=== PATIENT | male | born 1935 | race Caucasian/White ===

== ENCOUNTER → 2017-02-16 | Outpatient (CLI) | payer MEDICARE, OTHER ==
[2017-02-16 08:53] LABS: ABSOLUTE EOSINOPHILS # (AUTO) 0.2 10^3/uL (0.0-0.6); ABSOLUTE LYMPHOCYTES (AUTO) 1.8 10^3/uL (0.5-4.7); ABSOLUTE NEUT (AUTO) 5.6 10^3/uL (1.7-8.2); BASOPHILS % (AUTO) 0.6 % (0-2); EOSINOPHILS % (AUTO) 2.7 % (0-6); HEMATOCRIT 46.9 % (37.9-51.0); HEMOGLOBIN 16.1 g/dL (13.5-17.0); HGB HCT DIFFERENCE 1.4; LYMPHOCYTES % (AUTO) 20.7 % (13-45); MEAN CORPUSCULAR HEMOGLOBIN 30.2 pg (27.0-33.4); MEAN CORPUSCULAR HGB CONC 34.2 g/dL (32.0-36.0); MEAN CORPUSCULAR VOLUME 88 fl (80-97); MONOCYTES % (AUTO) 11.6 % (3-13); RED BLOOD COUNT 5.31 10^6/uL (4.35-5.55); RED CELL DISTRIBUTION WIDTH 13.7 % (11.5-14.0); SEGMENTED NEUTROPHILS % (AUTO) 64.4 % (42-78); WHITE BLOOD COUNT 8.7 10^3/uL (4.0-10.5)
[2017-02-16 09:46] LABS: CHOLESTEROL 188.25 mg/dL (0-200); DIRECT LDL 129 mg/dL (<100); Direct HDL 36 mg/dL (>40); TRIGLYCERIDES 193 mg/dL (<150); VLDL CHOLESTEROL 38.6 mg/dL (10-31)
[2017-02-16 10:01] LABS: THYROID STIMULATING HORMONE 3.28 uIU/mL (0.47-4.68)
[2017-02-17 08:31] LABS: ALANINE AMINOTRANSFERASE 34 U/L (21-72); ALBUMIN 4.1 g/dL (3.5-5.0); ALKALINE PHOSPHATASE 61 U/L (38-126); ANION GAP 10 (5-19); ASPARTATE AMINO TRANSFERASE 22 U/L (17-59); BILIRUBIN,DIRECT 0.3 mg/dL (0.0-0.4); BILIRUBIN,TOTAL 1.2 mg/dL (0.2-1.3); BLOOD UREA NITROGEN 13 mg/dL (7-20); CALCIUM 9.4 mg/dL (8.4-10.2); CARBON DIOXIDE 25 mmol/L (22-30); CHLORIDE 104 mmol/L (98-107); CREATININE RESULT 0.93 mg/dL (0.52-1.25); GLUCOSE 99 mg/dL (75-110); POTASSIUM 4.9 mmol/L (3.6-5.0); SODIUM 139.4 mmol/L (137-145); TOTAL PROTEIN 7.3 g/dL (6.3-8.2)
== END ==
LOC: OD 07:09
PROVIDERS: ATTEND Internal Medicine
DX: I10 Essential (primary) hypertension (principal); E03.9 Hypothyroidism, unspecified; Z12.5 Encounter for screening for malignant neoplasm of prostate; Z79.899 Other long term (current) drug therapy
CPT/HCPCS: 36415; 84439; 84443; 85025; 80053; 80061; G0103

== ENCOUNTER 2017-03-01 09:25 | Day surgery (SDC) | payer MEDICARE, OTHER ==
--- NOTE | 2017-02-24 10:26 | HISTORY AND PHYSICAL E ---
History and Physical NAME: PRAMOD GILL : 1935 AGE: 81Y ADMITTED: 03/01/2017 ROOM: CHIEF COMPLAINT: Patient for colonoscopy. HISTORY OF PRESENT ILLNESS: The patient is a 81-year-old male who presented for colon screening. SOCIAL HISTORY: . Does not smoke. Does not drink. PAST MEDICAL HISTORY: Patient does have a history of right hemicolectomy secondary to cancer in 1998, right inguinal hernia surgery. REVIEW OF SYSTEMS: CARDIAC: Heart murmur. ENDOCRINE: Hypothyroid. GASTROINTESTINAL: Colon screening. Right hemicolectomy secondary to malignancy of the colon. MUSCULOSKELETAL: Arthritis. FAMILY HISTORY: Father had heart disease. Mom of old age. PHYSICAL EXAMINATION: GENERAL: Pleasant, 81. VITAL SIGNS: Blood pressure 140/80, pulse 80, respirations 18, temperature 98. HEENT: Normal. ABDOMEN: Soft. NEUROLOGIC: Exam negative. LABORATORY STUDIES: White count 8, hemoglobin 16, crit 46. Triglycerides is 193. Patient does have VLDL of 38. PSA is normal. CONCLUSION: Colon screening. PLAN: Colonoscopy. Scheduled for colon exam on 03/01/2017. REVIEW OF RECORDS: Shows as follows: Patient was seen in 03/2009. He did have stage c2 T3 N1 M0 moderately well-differentiated adenocarcinoma of the colon. He was seen on consultation by Dr. Loja, oncology, at that time. I did a colonoscopy on him in 1999, showing no recurrence, no polyps. Colonoscopy in 2002 was negative for recurrence. Colonoscopy in 2003 was negative and in 2005 was negative. DICTATING PHYSICIAN: WILL ALLAN M.D. [id number] [id number] PHY#: [id number] ID: [id number] JOB#: [id number] ACCT: [id number] cc:SAMANTHA PERDUE M.D., MAHMOUD M.D. >
[2017-03-01] MEDS ORDERED: NALOXONE HCL INJ/PF 0.4 MG/1 ML SDV ONE (09:29)
[2017-03-01] MEDS ORDERED: GLYCOPYRROLATE INJ 0.4 MG/2 ML VIAL ONE (09:29)
[2017-03-01] MEDS ORDERED: ONDANSETRON HCL INJ/PF 4 MG/2 ML SDV ONE (09:29)
[2017-03-01] MEDS ORDERED: LIDOCAINE 2% JELLY 30 ML TUBE ONE (09:29)
[2017-03-01] MEDS ORDERED: MIDAZOLAM 2 MG/2 ML INJ ONE ×2 (09:29→09:30)
[2017-03-01] MEDS ORDERED: FLUMAZENIL INJ 0.5 MG/5 ML VIAL ONE (09:30)
[2017-03-01] MEDS ORDERED: EPINEPHRINE INJ 1 MG/10 ML DISP.SYRIN ONE (09:30)
[2017-03-01] MEDS ORDERED: GLUCAGON,HUMAN RECOMB 1 MG INJ ONE (09:30)
[2017-03-01] MEDS ORDERED: FENTANYL CITRATE INJ/PF 100 MCG/2 ML AMPUL ONE (09:30)
[2017-03-01 11:40] LABS: ABSOLUTE EOSINOPHILS # (AUTO) 0.1 10^3/uL (0.0-0.6); ABSOLUTE LYMPHOCYTES (AUTO) 1.5 10^3/uL (0.5-4.7); ABSOLUTE MONOCYTES (AUTO) 1.3 10^3/uL (0.1-1.4); ABSOLUTE NEUT (AUTO) 7.7 10^3/uL (1.7-8.2); BASOPHILS % (AUTO) 0.2 % (0-2); EOSINOPHILS % (AUTO) 0.9 % (0-6); HEMATOCRIT 43.7 % (37.9-51.0); HGB HCT DIFFERENCE 1.3; MEAN CORPUSCULAR HEMOGLOBIN 30.1 pg (27.0-33.4); MEAN CORPUSCULAR HGB CONC 34.2 g/dL (32.0-36.0); MEAN CORPUSCULAR VOLUME 88 fl (80-97); MONOCYTES % (AUTO) 12.3 % (3-13); RED BLOOD COUNT 4.97 10^6/uL (4.35-5.55); RED CELL DISTRIBUTION WIDTH 13.9 % (11.5-14.0); SEGMENTED NEUTROPHILS % (AUTO) 72.6 % (42-78); WHITE BLOOD COUNT 10.6 10^3/uL (4.0-10.5)
[2017-03-01 11:47] VITALS: BP 136/66
--- NOTE | 2017-03-01 15:24 | OPERATIVE REPORT E ---
Operative Report NAME: PRAMOD GILL : 1935 AGE: 81Y DATE OF SURGERY: 03/01/2017 ROOM: PREOPERATIVE DIAGNOSIS: History of colon cancer, resected back in year 1999. POSTOPERATIVE DIAGNOSES: 1. Sigmoid diverticulosis. 2. Sessile polyp, mid transverse colon. 3. A 2 mm polyp ascending colon. PROCEDURE: Colonoscopy to anastomosis. SURGEON: WILL ALLAN M.D. TISSUE REMOVED OR ALTERED: 1. Polyp injected, resected transverse colon. 2. Biopsy polyp ascending colon. ANESTHESIA: Versed, fentanyl combination. Versed 2, fentanyl 50. DESCRIPTION: Rectal exam normal. Sigmoid diverticulosis. Descending colon shows tiny polyp, biopsy obtained. Transverse colon shows sessile polyp inject, resect. There were a few more small polyps around the anastomoses, biopsy obtained. Scope withdrawn from anastomosis into transverse colon where sessile polyp was seen, injected, resected, and there are a few tiny polyps 2-3 mm, biopsy obtained. Sigmoid diverticulosis. Rectum normal. DISCHARGE PLAN: Hold aspirin, nonsteroidal 5 days. Baseline CBC. Awaiting biopsy result. CEA. Consider followup colonoscopy 1-2 years pending biopsy results. FINAL DIAGNOSES: 1. Colorectal polyp. 2. History of right colon resection secondary to cancer 1999. DICTATING PHYSICIAN: WILL ALLAN M.D. [id number] PHY#: [id number] ID: [id number] JOB#: [id number] ACCT: [id number] cc:WILL ALLAN M.D. >
--- NOTE | 2017-03-01 15:25 | DISCHARGE SUMMARY E ---
Discharge Summary NAME: PRAMOD GILL : 1935 AGE: 81Y ADMITTED: 03/01/2017 DISCHARGED: 03/01/2017 HOSPITAL COURSE: The patient is a 81-year-old male has a history of right colon resection secondary to cancer by Dr. Vogt year 1999. Today's colonoscopy shows a sessile polyp mid transverse colon injected, resected, tiny polyps in the transverse colon. DISCHARGE PLAN: Soft diet. Hold aspirin, nonsteroidal. CEA, CBC. Consider followup colonoscopy 1-2 years pending biopsy results. DICTATING PHYSICIAN: WILL ALLAN M.D. [id number] [id number] PHY#: [id number] ID: [id number] JOB#: [id number] ACCT: [id number] cc:SAMANTHA PERDUE M.D., MAHMOUD M.D. >
== END 2017-03-01 11:45 | disposition home or self-care (01) ==
LOC: END 09:25
PROVIDERS: ATTEND Specialist
PROC: 0DBK8ZX Excision of Ascending Colon, Via Natural or Artificial Opening Endoscopic, Diagnostic (ICD-10-PCS; principal; 2017-03-01 10:00)
PROC: 0DBL8ZX Excision of Transverse Colon, Via Natural or Artificial Opening Endoscopic, Diagnostic (ICD-10-PCS; 2017-03-01 10:00)
DX: Z12.11 Encounter for screening for malignant neoplasm of colon (principal); D12.2 Benign neoplasm of ascending colon; D12.3 Benign neoplasm of transverse colon; K57.30 Diverticulosis of large intestine without perforation or abscess without bleeding; R97.0 Elevated carcinoembryonic antigen [CEA]; E03.9 Hypothyroidism, unspecified; R01.1 Cardiac murmur, unspecified; M19.90 Unspecified osteoarthritis, unspecified site; Z85.038 Personal history of other malignant neoplasm of large intestine; Z90.49 Acquired absence of other specified parts of digestive tract
CPT/HCPCS: 45380; 45385; 45381; 36415; 82378; 85025; 88305 ×2; J2250; J3010; J1610; J2405; J0171; J2310; J3490

== ENCOUNTER 2017-03-22 09:18 | Day surgery (SDC) | payer MEDICARE, OTHER ==
--- NOTE | 2017-03-17 09:47 | HISTORY AND PHYSICAL E ---
History and Physical NAME: PRAMOD GILL : 1935 AGE: 81Y ADMITTED: 03/22/2017 ROOM: CHIEF COMPLAINT: Abdominal pain, history of polyps. PLAN: Upper endoscopy. HISTORY AND PHYSICAL: Patient is known to me from a long time ago. I saw him in the year 1999 where he did have colon cancer, stage C2T3N1, moderately differentiated. Patient did have upper scope in 1998 for reflux. He did have a small gastric ulcer, 3 mm. He did have esophagus showing patient was bleeding. He was given 3 units of blood. His esophagus was okay, no varices. His stomach showed a 3-mm gastric ulcer. Duodenum showed no ulcers. Because of exacerbation of abdominal pain, patient is admitted for upper scope. REVIEW OF SYSTEMS: The patient has history of colon cancer. Denies any history of kidney disease. PHYSICAL EXAMINATION: VITAL SIGNS: Temp is 98, pulse 80, respirations 20, blood pressure 120/80. HEENT: Normal. ABDOMEN: Soft. NEUROLOGIC: Exam negative. MEDICATIONS: The patient is on omeprazole and thyroid replacement. CONCLUSIONS: 1. Abdominal pain. 2. Gastroesophageal reflux. 3. History of colon cancer. PLAN: Upper scope, admit 03/22/2017. DICTATING PHYSICIAN: WILL ALLAN M.D. 1209M [id number] [facility]#: [id number] ID: [id number] JOB#: [id number] ACCT: [id number] cc:SAMANTHA PERDUE M.D., MAHMOUD M.D. >
[~2017-03-22 09:18] MED LIST: EPINEPHRINE INJ 1 MG/10 ML DISP.SYRIN ONE; FENTANYL CITRATE INJ/PF 100 MCG/2 ML AMPUL ONE; FLUMAZENIL INJ 0.5 MG/5 ML VIAL ONE; GLYCOPYRROLATE INJ 0.4 MG/2 ML VIAL ONE; MIDAZOLAM 2 MG/2 ML INJ ONE; NALOXONE HCL INJ/PF 0.4 MG/1 ML SDV ONE; ONDANSETRON HCL INJ/PF 4 MG/2 ML SDV ONE
[2017-03-22 11:03] VITALS: BP 120/68
[2017-03-22 11:03] LABS: ABSOLUTE EOSINOPHILS # (AUTO) 0.2 10^3/uL (0.0-0.6); ABSOLUTE LYMPHOCYTES (AUTO) 1.5 10^3/uL (0.5-4.7); ABSOLUTE NEUT (AUTO) 6.6 10^3/uL (1.7-8.2); BASOPHILS % (AUTO) 0.5 % (0-2); EOSINOPHILS % (AUTO) 1.7 % (0-6); HEMATOCRIT 44.6 % (37.9-51.0); HEMOGLOBIN 15.3 g/dL (13.5-17.0); HGB HCT DIFFERENCE 1.3; LYMPHOCYTES % (AUTO) 16.1 % (13-45); MEAN CORPUSCULAR HEMOGLOBIN 30.6 pg (27.0-33.4); MEAN CORPUSCULAR HGB CONC 34.3 g/dL (32.0-36.0); MEAN CORPUSCULAR VOLUME 89 fl (80-97); MONOCYTES % (AUTO) 11.2 % (3-13); RED CELL DISTRIBUTION WIDTH 13.3 % (11.5-14.0); SEGMENTED NEUTROPHILS % (AUTO) 70.5 % (42-78); WHITE BLOOD COUNT 9.3 10^3/uL (4.0-10.5)
[2017-03-22 11:17] LABS: IRON 61.6 ug/dL (49-181)
[2017-03-22 11:50] LABS: CARCINOEMBRYONIC ANTIGEN 1.8 ng/mL (<3.0)
[2017-03-22 11:54] LABS: FERRITIN 67.2 ng/mL (17.9-464.0)
--- NOTE | 2017-03-22 15:29 | DISCHARGE SUMMARY E ---
Discharge Summary NAME: PRAMOD GILL : 1935 AGE: 81Y ADMITTED: 03/22/2017 DISCHARGED: 03/22/2017 HISTORY: A 81-year-old male presented with dysphagia and reflux. He does have history of colon cancer resected in 1998. History of asthma, hypothyroid. Today's upper scope shows no malignancy, no stricture, mild esophagitis, mild gastritis, mild duodenitis. DISCHARGE PLAN: 1. Soft diet. 2. Lab studies. 3. Continue omeprazole. 4. Awaiting biopsy and lab studies. 5. Followup office visit in the next few days. DICTATING PHYSICIAN: WILL ALLAN M.D. [id number] PHY#: [id number] ID: [id number] JOB#: [id number] ACCT: [id number] cc:SAMANTHA PERDUE M.D., MAHMOUD M.D. >
--- NOTE | 2017-03-22 15:29 | OPERATIVE REPORT E ---
Operative Report NAME: PRAMOD GILL : 1935 AGE: 81Y DATE OF SURGERY: 03/22/2017 ROOM: PREOPERATIVE DIAGNOSES: Dysphagia and reflux. POSTOPERATIVE DIAGNOSES: 1. Esophagitis mild. 2. Gastritis mild. 3. Duodenitis mild. OPERATION: 1. Esophagoscopy. 2. Gastroscopy. 3. Duodenoscopy. SURGEON: WILL ALLAN M.D. ANESTHESIA: Versed 2 and fentanyl 100. TISSUE REMOVED OR ALTERED: Gastric biopsy for H. pylori. DESCRIPTION OF PROCEDURE: Baby scope passed under guided vision. No difficulties. Esophagoscopy junction at 42 cm. No stricture. No hernia. No malignancy. Esophagus shows mild esophagitis. No evidence of stricture, narrowing, or malignancy. Good peristalsis with mild esophagitis. Gastroscopy: No ulcers. Mild gastritis. Duodenoscopy: Duodenal bulb shows mild duodenitis. Descending duodenal normal. CONCLUSION: Upper scope showing no ulcers. No malignancy. Mild esophagitis. Mild gastritis. Mild duodenitis. Gastric biopsy obtained for H. pylori. Patient does have history of colon polyps. History of colon cancer, resected in 1998. History of hypothyroid, asthma, and arthritis. DISCHARGE PLAN: Hold aspirin and nonsteroidal for 3 days. Soft diet. Awaiting biopsy results. I will obtain baseline CBC and CEA. Lab studies. Followup office visit in the next few days. DICTATING PHYSICIAN: WILL ALLAN M.D. [id number] [id number] PHY#: [id number] ID: [id number] JOB#: [id number] ACCT: [id number] cc:SAMANTHA PERDUE M.D., MAHMOUD M.D. >
== END 2017-03-22 11:10 | disposition home or self-care (01) ==
LOC: END 09:18
PROVIDERS: ATTEND Specialist
PROC: 0DB68ZX Excision of Stomach, Via Natural or Artificial Opening Endoscopic, Diagnostic (ICD-10-PCS; principal; 2017-03-22 10:00)
DX: K21.0 Gastro-esophageal reflux disease with esophagitis (principal); R97.0 Elevated carcinoembryonic antigen [CEA]; D50.9 Iron deficiency anemia, unspecified; K29.50 Unspecified chronic gastritis without bleeding; K29.80 Duodenitis without bleeding; J45.909 Unspecified asthma, uncomplicated; E03.9 Hypothyroidism, unspecified; M19.90 Unspecified osteoarthritis, unspecified site; Z85.038 Personal history of other malignant neoplasm of large intestine; Z90.49 Acquired absence of other specified parts of digestive tract; Z79.899 Other long term (current) drug therapy
CPT/HCPCS: 43239; 36415; 82607; 82378; 82728; 83540; 85025; 88342 ×2; 88305 ×2; J2250; J3010; J0171; J2310; J2405; J3490

== ENCOUNTER → 2017-04-12 | Outpatient (CLI) | payer MEDICARE, OTHER ==
[2017-04-12 17:42] LABS: LIPASE 90.2 U/L (23-300)
== END ==
LOC: OD 16:31
PROVIDERS: ATTEND Internal Medicine
DX: D37.8 Neoplasm of uncertain behavior of other specified digestive organs (principal); R10.10 Upper abdominal pain, unspecified
CPT/HCPCS: 36415; 82150; 83690; 86301

== ENCOUNTER → 2017-04-24 | Outpatient (CLI) | payer MEDICARE, OTHER ==
--- NOTE | 2017-04-25 08:54 | RADIOLOGY REPORT (SQ) ---
EXAM DESCRIPTION: PET CT SKULL/THIGH COMPLETED DATE/TIME: 04/24/2017 6:52 pm REASON FOR STUDY: MALIGNANT NEOPLASM OF BODY OF PANCREAS C25.1 MALIGNANT NEOPLASM OF BODY OF PANCRE COMPARISON: None. RADIONUCLIDE AND DOSE: 10.5 mCi F18 FDG The route of agent administration: Intravenous FASTING BLOOD SUGAR: 96 mg/dl CONTRAST TYPE AND DOSE: No CT contrast given. TECHNIQUE: Blood glucose level was verified. Above dose of FDG was injected intravenously. 2-D seg mented attenuation correction images were obtained from the base of the skull to the midthighs. Nonc ontrast CT images were obtained for attenuation correction and fusion with emission images. CT image s were performed without oral or intravenous contrast and are not sensitive for parenchymal lesions. A series of overlapping emission PET images were obtained. Images reviewed and manipulated [facility] by the radiologist. Images stored on PACS. LIMITATIONS: None. FINDINGS: HEAD AND NECK: No areas of abnormal metabolic activity in the soft tissues of the head and neck. CHEST: No areas of abnormal metabolic activity in the chest. ABDOMEN AND PELVIS: A 4 cm transverse by 2.7 cm AP mass is present in the deep aspect pancreatic head , abutting the superior mesenteric vein. This has SUV of 7.7. There is blurring of fat planes betwe en the mass and superior mesenteric vein. No hypermetabolic regional adenopathy. No hypermetabolic liver lesions worrisome for metastatic dise ase. PROXIMAL LOWER EXTREMITIES: No areas of abnormal metabolic activity in the soft tissues of the lower extremities. BONES: No abnormal metabolic activity in the visualized skeleton. ADDITIONAL CT FINDINGS: Partial right hemicolectomy. Calcified aortic valve. Degenerative changes i n the spine OTHER: Blood pool background activity SUV 1.9. Liver background activity 2.5 SUV IMPRESSION: Hypermetabolic mass in the dorsal aspect of the pancreatic head, from pancreatic cancer No regional hypermetabolic regional lymph nodes or evidence of metastatic disease. TECHNICAL DOCUMENTATION: JOB ID: [id number]- All Rights Reserved
== END ==
LOC: RAD 14:45
PROVIDERS: ATTEND Internal Medicine
DX: C25.1 Malignant neoplasm of body of pancreas (principal)
CPT/HCPCS: 78815; A9552

== ENCOUNTER 2017-05-26 22:26 | Emergency (ER) | payer MEDICARE, OTHER ==
[2017-05-26 23:44] LABS: ABSOLUTE LYMPHOCYTES (AUTO) 0.6 10^3/uL (0.5-4.7); ABSOLUTE MONOCYTES (AUTO) 0.1 10^3/uL (0.1-1.4); ALANINE AMINOTRANSFERASE 55 U/L (21-72); ALBUMIN 3.8 g/dL (3.5-5.0); ALKALINE PHOSPHATASE 68 U/L (38-126); ANION GAP 12 (5-19); ASPARTATE AMINO TRANSFERASE 32 U/L (17-59); BASOPHILS % (AUTO) 0.1 % (0-2); BILIRUBIN,DIRECT 0.6 mg/dL (0.0-0.4); BILIRUBIN,TOTAL 2.2 mg/dL (0.2-1.3); BLOOD UREA NITROGEN 22 mg/dL (7-20); CALCIUM 8.9 mg/dL (8.4-10.2); CARBON DIOXIDE 26 mmol/L (22-30); CHLORIDE 98 mmol/L (98-107); CREATININE RESULT 0.98 mg/dL (0.52-1.25); EOSINOPHILS % (AUTO) 0.4 % (0-6); GLUCOSE 126 mg/dL (75-110); HEMATOCRIT 38.1 % (37.9-51.0); HGB HCT DIFFERENCE 0.9; LIPASE 22.7 U/L (23-300); LYMPHOCYTES % (AUTO) 5.2 % (13-45); MEAN CORPUSCULAR HEMOGLOBIN 29.6 pg (27.0-33.4); MEAN CORPUSCULAR HGB CONC 34.2 g/dL (32.0-36.0); MEAN CORPUSCULAR VOLUME 87 fl (80-97); MONOCYTES % (AUTO) 1.1 % (3-13); POTASSIUM 4.6 mmol/L (3.6-5.0); RED CELL DISTRIBUTION WIDTH 13.4 % (11.5-14.0); SEGMENTED NEUTROPHILS % (AUTO) 93.2 % (42-78); SODIUM 135.7 mmol/L (137-145); TOTAL PROTEIN 7.1 g/dL (6.3-8.2); WHITE BLOOD COUNT 11.9 10^3/uL (4.0-10.5)
[2017-05-27] MEDS ORDERED: NORMAL SALINE 1000 ML 1,000 ML IV ONE
[2017-05-27] MEDS ORDERED: ONDANSETRON HCL INJ/PF 4 MG/2 ML SDV IV ONE (00:01)
--- NOTE | 2017-05-27 00:47 | RADIOLOGY REPORT (SQ) ---
EXAM DESCRIPTION: CT ABDOMEN AND PELVIS WITH CONTRAST CLINICAL HISTORY: vomiting, pancreatic cancer COMPARISON: None Available. TECHNIQUE: CT of the abdomen and pelvis are performed during IV bolus administration of 100.3 mL of Isovue-370. Portal venous and delayed phase imaging obtained. DLP: 1942.79 mGycm FINDINGS: Abdomen: The liver has normal size and density. No intrahepatic mass or biliary dilatation. No calcified gallstones. 3.6 x 2.9 cm hypodensity in the pancreatic head likely representing a mass. No abnormality of the spleen or adrenal glands. The kidneys have normal size and contour without evidence of solid mass or hydronephrosis. Aortoiliac atherosclerosis. IVC is unremarkable. The portal vein patent. The proximal visceral and renal arteries are patent. No free intraperitoneal air. Postoperative change adjacent to the duodenum. Pelvis: Enlarged prostate. Urinary bladder is unremarkable. No free pelvic fluid or lymphadenopathy. Prior right hemicolectomy. No dilated loops of large or small bowel. Normal appendix. The visualized lung bases are clear. No destructive bone lesions identified. Degenerative change of the spine. IMPRESSION: 1. There is a 3.6 cm hypodense mass in the pancreatic head compatible with history of pancreatic cancer. 2. No acute abnormality identified in the abdomen or pelvis. 3. Enlarged prostate. This exam was performed according to our departmental dose-optimization program, which includes automated exposure control, adjustment of the mA and/or kV according to patient size and/or use of iterative reconstruction technique.
--- NOTE | 2017-05-27 01:01 | ER Document Report ---
ED General - General Chief Complaint: Nausea Stated Complaint: VOMITING Time Seen by Provider: 05/26/17 22:38 Notes: Patient is a 81-year-old male with a past medical history of pancreatic cancer, actively receiving chemotherapy, prior history of colon cancer with a partial colonic resection who presents with 12 hours of persistent vomiting. Patient states that he last received chemotherapy 2 days ago and has had nausea since that time but has never vomited with chemotherapy in the past that he was concerned. He describes the vomitus as a nonbilious emesis, Vikash the contents when he is trying to eat or drink. He notes a had associated generalized abdominal discomfort but denies any focal pain. Nothing improves or worsens his symptoms. He has not seen his hematology/oncology doctor regarding today's concerns. He has no prior history of bowel obstructions. He states that he has been passing flatus. TRAVEL OUTSIDE OF THE [place] IN LAST 30 DAYS: No - Related Data Allergies/Adverse Reactions: No Known Allergies Allergy (Verified 05/19/17 20:28) Past Medical History - General Information source: Patient, Relative - Social History Smoking Status: Never Smoker Chew tobacco use (# tins/day): No Frequency of alcohol use: None Drug Abuse: None Lives with: Spouse/Significant other Family History: Reviewed & Not Pertinent Patient has suicidal ideation: No Patient has homicidal ideation: No - Past Medical History Cardiac Medical History: Denies: Hx Coronary Artery Disease, Hx Heart Attack, Hx Hypertension Pulmonary Medical History: Reports: Hx Asthma - A CHILD Denies: Hx Bronchitis, Hx COPD, Hx Pneumonia - INF Neurological Medical History: Denies: Hx Cerebrovascular Accident, Hx Seizures Renal/ Medical History: Denies: Hx Peritoneal Dialysis GI Medical History: Reports: Hx Ulcer - IN PAST BUT HEALED. Denies: Hx Hepatitis, Hx Hiatal Hernia Musculoskeltal Medical History: Reports Hx Arthritis Infectious Medical History: Denies: Hx Hepatitis Past Surgical History: Denies: Hx Open Heart Surgery, Hx Pacemaker - Immunizations Hx Diphtheria, Pertussis, Tetanus Vaccination: Yes Hx Pneumococcal Vaccination: 03/11/16 Review of Systems - Review of Systems Notes: Constitutional: Negative for fever. HENT: Negative for sore throat. Eyes: Negative for visual changes. Cardiovascular: Negative for chest pain. Respiratory: Negative for shortness of breath. Gastrointestinal: Positive for nausea and vomiting as well as abdominal discomfort Genitourinary: Negative for dysuria. Musculoskeletal: Negative for back pain. Skin: Negative for rash. Neurological: Negative for headaches, weakness or numbness. 10 point ROS negative except as marked above and in HPI. Physical Exam - Vital signs Vitals: Temp Pulse Resp BP Pulse Ox 98.7 F 109 H 16 134/74 H 97 05/26/17 22:34 05/26/17 22:34 05/26/17 22:34 05/26/17 22:34 05/26/17 22:34 Interpretation: Tachycardic Notes: PHYSICAL EXAMINATION: GENERAL: Appears stated age. No acute distress HEAD: Atraumatic, normocephalic. EYES: Pupils equal round and reactive to light, extraocular movements intact, sclera anicteric, conjunctiva are normal. ENT: nares patent, oropharynx clear without exudates. Dry mucous membranes. NECK: Normal range of motion, supple without lymphadenopathy LUNGS: Breath sounds clear to auscultation bilaterally and equal. No wheezes rales or rhonchi. HEART: Regular rate and rhythm without murmurs ABDOMEN: Soft, nontender, normoactive bowel sounds. No guarding, no rebound. No masses appreciated. EXTREMITIES: Normal range of motion, no pitting or edema. No cyanosis. NEUROLOGICAL: No focal neurological deficits. Moves all extremities spontaneously and on command. PSYCH: Normal mood, normal affect. SKIN: Warm, Dry, normal turgor, no rashes or lesions noted. Course - Re-evaluation Re-evalutation: 05/27/17 00:56 Patient presents with vomiting, nausea, and abdominal cramping. Patient is overall nontoxic in appearance, has had resolution of his nausea vomiting after receiving IV ondansetron. He was initially tachycardic at presentation but this did resolve after receiving IV fluids. Laboratories are overall unremarkable. A CT scan of the abdomen pelvis with IV contrast is obtained for concern for possible bowel obstruction given his surgical history as well as a known history of a mass of the head of the pancreas. CT scan did not demonstrate any evidence of acute bowel obstruction or perforation which was my primary concern. Patient was able to tolerate oral intake. 05/27/17 01:56 Patient is tolerating oral intake for over 30 minutes now. He is agreeable to discharge home. At this time will discharge with return precautions and follow- up recommendations. Verbal discharge instructions given a the bedside and opportunity for questions given. Medication warnings reviewed. Patient is in agreement with this plan and has verbalized understanding of return precautions and the need for primary care follow-up in the next 24-72 hours. - Vital Signs Vital signs: Temp Pulse Resp BP Pulse Ox 98.7 F 109 H 16 134/74 H 97 05/26/17 22:34 05/26/17 22:34 05/26/17 22:34 05/26/17 22:34 05/26/17 22:34 - Laboratory Result Diagrams: 05/26/17 23:15 05/26/17 23:15 Laboratory results interpreted by me: 05/26/17 05/26/17 23:15 23:15 WBC 11.9 H Hgb 13.0 L Plt Count 122 L Seg Neutrophils % 93.2 H Lymphocytes % 5.2 L Monocytes % 1.1 L Absolute Neutrophils 11.0 H Sodium 135.7 L BUN 22 H Glucose 126 H Total Bilirubin 2.2 H Direct Bilirubin 0.6 H Lipase 22.7 L Discharge - Discharge Clinical Impression: Dehydration Vomiting Qualifiers: Vomiting type: unspecified Vomiting Intractability: non-intractable Nausea presence: with nausea Qualified Code(s): R11.2 - Nausea with vomiting, unspecified Pancreatic cancer Qualifiers: Pancreatic malignancy location: unspecified Qualified Code(s): C25.9 - Malignant neoplasm of pancreas, unspecified Condition: Good Disposition: HOME, SELF-CARE Additional Instructions: Your CT scan is normal with exception of your known pancreatic cancer. Your labs are otherwise unremarkable. You have been sent home with Zofran that you can use as needed for nausea as well as a prescription for rectal Phenergan should your nausea remained persistent and you are unable to tolerate fluids. Prescriptions: Ondansetron [Zofran Odt 4 mg Tablet] 1 - 2 tab PO Q4H PRN #15 tab.rapdis PRN Reason: For Nausea/Vomiting Promethazine HCl [Phenergan 25 mg Supp.rect] 1 supp [place] Q6H #12 supp.rect Referrals: SAMANTHA PERDUE MD [Primary Care Provider] - Follow up as needed
[2017-05-27] MEDS ORDERED: ONDANSETRON ODT 4 MG TAB (6 TAB/ER DISP) PO PRN (01:56)
[2017-05-27] MEDS ORDERED: ONDANSETRON HCL INJ/PF 4 MG/2 ML SDV ONE (02:06)
[2017-05-27 02:48] VITALS: BP 128/66
== END 2017-05-27 02:49 | disposition home or self-care (01) ==
LOC: ER 22:26
DX: E86.0 Dehydration (principal); R11.2 Nausea with vomiting, unspecified; C25.9 Malignant neoplasm of pancreas, unspecified; R10.9 Unspecified abdominal pain; Z79.899 Other long term (current) drug therapy
CPT/HCPCS: 96376; 99284; 96361; 96374; 36415; 83690; 85025; 80053; 74177; J2405; J7030; A9270

== ENCOUNTER 2017-06-09 07:37 | Outpatient (CLI) | payer MEDICARE, OTHER ==
[~2017-06-09 07:37] MED LIST changes: -EPINEPHRINE INJ 1 MG/10 ML DISP.SYRIN ONE; -FENTANYL CITRATE INJ/PF 100 MCG/2 ML AMPUL ONE; -FLUMAZENIL INJ 0.5 MG/5 ML VIAL ONE; -GLYCOPYRROLATE INJ 0.4 MG/2 ML VIAL ONE; -MIDAZOLAM 2 MG/2 ML INJ ONE; -NALOXONE HCL INJ/PF 0.4 MG/1 ML SDV ONE; +NORMAL SALINE 1000 ML 1,000 ML IV PRN; -ONDANSETRON HCL INJ/PF 4 MG/2 ML SDV ONE; +PROMETHAZINE HCL INJ 25 MG/1 ML VIAL IV PRN
[2017-06-09 09:12] VITALS: BP 138/45
== END 2017-06-09 09:14 | disposition home or self-care (01) ==
LOC: II 07:37 → 5TH 07:38 → II 09:14
PROVIDERS: ATTEND Internal Medicine
DX: Z51.11 Encounter for antineoplastic chemotherapy (principal); C25.1 Malignant neoplasm of body of pancreas; R11.0 Nausea
CPT/HCPCS: 96374; 96360; J2550

== ENCOUNTER 2017-06-10 11:56 | Outpatient (CLI) | payer MEDICARE, OTHER ==
[2017-06-10 12:54] VITALS: BP 139/74
== END 2017-06-10 15:36 | disposition home or self-care (01) ==
LOC: II 11:56 → 5TH 11:59 → II 15:36
PROVIDERS: ATTEND Internal Medicine
PROC: 3E0337Z Introduction of Electrolytic and Water Balance Substance into Peripheral Vein, Percutaneous Approach (ICD-10-PCS; principal; 2017-06-10)
DX: R11.0 Nausea (principal); C25.1 Malignant neoplasm of body of pancreas
CPT/HCPCS: 96360

== ENCOUNTER 2017-06-17 15:38 | Outpatient (CLI) | payer MEDICARE, OTHER ==
[2017-06-17] MEDS ORDERED: NORMAL SALINE 1000 ML 1,000 ML IV PRN (15:50)
[2017-06-17 16:17] VITALS: BP 155/69
== END 2017-06-17 17:04 | disposition home or self-care (01) ==
LOC: II 15:38 → 5TH 15:41 → II 17:04
PROVIDERS: ATTEND Internal Medicine
PROC: 3E0337Z Introduction of Electrolytic and Water Balance Substance into Peripheral Vein, Percutaneous Approach (ICD-10-PCS; principal; 2017-06-17)
DX: C25.9 Malignant neoplasm of pancreas, unspecified (principal)
CPT/HCPCS: 96360

== ENCOUNTER → 2017-06-24 | Outpatient (CLI) | payer MEDICARE, OTHER ==
--- NOTE | 2017-06-24 10:42 | RADIOLOGY REPORT (SQ) ---
EXAM DESCRIPTION: CT CHEST WITH; CT ABD/PELVIS WITH IV ORAL COMPLETED DATE/TIME: 06/24/2017 9:08 am REASON FOR STUDY: PANCREATIC CA C25.1 MALIGNANT NEOPLASM OF BODY OF PANCREAS CONTRAST TYPE AND DOSE: contrast/concentration: Isovue 370.00 mg/ml; Total Contrast Delivered: 100.0 ml; Total Saline Delivered: 72.0 ml RENAL FUNCTION: Creatinine 0.8 COMPARISON: PET-CT 04/24/2017. CT abdomen 05/27/2017. TECHNIQUE: CT scan of the chest performed using helical scanning technique with dynamic intravenous contrast injection. Images reviewed with lung, soft tissue and bone windows. Reconstructed coronal a nd sagittal MPR images reviewed. All images stored on PACS. All CT scanners at this facility use dose modulation, iterative reconstruction, and/or weight based d osing when appropriate to reduce radiation dose to as low as reasonably achievable (ALARA). [facility]: Dose Right [facility]: CareDose [facility]: Dose Right [facility]: Teradose 4D [facility]: Smart Primo1D RADIATION DOSE: CT Rad equipment meets quality standard of care and radiation dose reduction techniq ues were employed. CTDIvol: 9.0 - 12.5 mGy. DLP: 1694 mGy-cm.. LIMITATIONS: None. FINDINGS: AXILLAE: No adenopathy. CHEST WALL: No masses. No subcutaneous air. LUNGS: Largely subpleural interstitial changes in the lung bases with additional areas of mild scar. No suspicious opacities or acute pneumonia evident. No significant pleural fluid. PLEURA: No effusions. No calcifications. THYROID: No masses or significant asymmetry. HILAR AND MEDIASTINAL STRUCTURES: No identified masses or abnormal nodes. AORTA AND GREAT VESSELS: No aneurysm. No dissection. PULMONARY ARTERIES: No identified pulmonary emboli. Study not optimized for the pulmonary arteries. HEART: No pericardial effusion. HARDWARE AND LIFELINES: None. BONES: No significant finding. OTHER: No other significant finding. IMPRESSION: 1. No suspicious thoracic findings. No suggestion of pulmonary metastatic disease. COMPARISON: As above. RADIATION DOSE: CT Rad equipment meets quality standard of care and radiation dose reduction techniq ues were employed. CTDIvol: 9.0 - 12.5 mGy. DLP: 1694 mGy-cm.mGy. TECHNIQUE: CT scan of the abdomen and pelvis performed with intravenous and oral contrast using petey edy scanning technique with dynamic intravenous contrast injection. Images reviewed with lung, soft tissue and bone windows. Reconstructed coronal and sagittal MPR images reviewed. Delayed images for evaluation of the urinary system also acquired and evaluated. All images stored on PACS. All CT scanners at this facility use dose modulation, iterative reconstruction, and/or weight based d osing when appropriate to reduce radiation dose to as low as reasonably achievable (ALARA). [facility]: Dose Right [facility]: SureCare [facility]: Dose Right [facility]: Teradose 4D [facility]: EVS [employer] FINDINGS: LIVER: Normal size. No masses. No dilated ducts. SPLEEN: Normal size. No focal lesions. PANCREAS: Mass in the pancreatic head and neck likely measures close to 5.7 cm transverse dimension b y 3.4 cm AP. Less discretely visualized than on prior study. Poor definition of the junction of the splenic vein, superior mesenteric vein and portal vein, apparent mass effect on the structures. Paulino w in the superior mesenteric and portal veins look somewhat generally diminished. No significant mortensen creatic tail duct dilatation. No drainable fluid collections. No bulky regional adenopathy. GALLBLADDER: No stones or wall thickening. ADRENAL GLANDS: No significant masses or asymmetry. RIGHT KIDNEY AND URETER: No gross mass or obstruction. LEFT KIDNEY AND URETER: No gross mass or obstruction. AORTA AND VESSELS: Normal caliber aorta. Soft plaque with approximately 50% narrowing in the proxima l SMA. RETROPERITONEUM: No retroperitoneal adenopathy, hemorrhage or masses. LARGE AND SMALL BOWEL: Probable proximal colon resection. No wall thickening, bowel dilatation or ab normal wall thickening. APPENDIX: Normal. ABDOMINAL WALL: No hernia or masses. PERITONEAL CAVITY: No free air. No free fluid. No peritoneal implants or masses. PELVIS: No mass or free fluid. Normal bladder. Prostate enlarged. BONES: No significant or acute findings. OTHER: No other significant finding. IMPRESSION: 1. Known pancreatic mass. Maximal transverse dimension looks larger compared to prior, however this may simply be due to differences in technique. The margins of the lesion are less well defined today relative to the prior study. There is mass effect on the portal confluence with dimini shed flow in the veins described above. No discrete clot identified. No definite metastatic lesions detected. TECHNICAL DOCUMENTATION: JOB ID: [id number] Quality ID # [id number]: Final reports with documentation of one or more dose reduction techniques (e.g., Au tomated exposure control, adjustment of the mA and/or kV according to patient size, use of iterative reconstruction technique) 2010 [employer]- All Rights Reserved
== END ==
LOC: WI 08:09
PROVIDERS: ATTEND Internal Medicine
DX: C25.1 Malignant neoplasm of body of pancreas (principal)
CPT/HCPCS: 71260; 74177

== ENCOUNTER 2017-06-30 11:17 | Outpatient (CLI) | payer MEDICARE, OTHER ==
[2017-06-30] MEDS ORDERED: NORMAL SALINE 1000 ML 1,000 ML IV PRN (11:43)
[2017-06-30] MEDS ORDERED: METOCLOPRAMIDE HCL INJ/PF 10 MG/2 ML SDV IV PRN (11:44)
[2017-06-30 12:15] VITALS: BP 131/63
== END 2017-06-30 13:01 | disposition home or self-care (01) ==
LOC: II 11:17 → 5TH 11:19 → II 13:01
PROVIDERS: ATTEND Internal Medicine Hematology & Oncology
PROC: 3E0337Z Introduction of Electrolytic and Water Balance Substance into Peripheral Vein, Percutaneous Approach (ICD-10-PCS; principal; 2017-06-30)
PROC: 3E033GC Introduction of Other Therapeutic Substance into Peripheral Vein, Percutaneous Approach (ICD-10-PCS; 2017-06-30)
DX: R11.0 Nausea (principal); C25.1 Malignant neoplasm of body of pancreas; Z51.11 Encounter for antineoplastic chemotherapy
CPT/HCPCS: 96374; 96360; J2765; 96361

== ENCOUNTER 2017-07-07 11:14 | Outpatient (CLI) | payer MEDICARE, OTHER ==
[~2017-07-07 11:14] MED LIST changes: +METOCLOPRAMIDE HCL INJ/PF 10 MG/2 ML SDV IV PRN; -PROMETHAZINE HCL INJ 25 MG/1 ML VIAL IV PRN
[2017-07-07 11:53] VITALS: BP 120/62
== END 2017-07-07 12:43 | disposition home or self-care (01) ==
LOC: II 11:14 → 5TH 11:14 → II 12:43
PROVIDERS: ATTEND Internal Medicine Hematology & Oncology
PROC: 3E033GC Introduction of Other Therapeutic Substance into Peripheral Vein, Percutaneous Approach (ICD-10-PCS; principal; 2017-07-07)
PROC: 3E0337Z Introduction of Electrolytic and Water Balance Substance into Peripheral Vein, Percutaneous Approach (ICD-10-PCS; 2017-07-07)
DX: R11.0 Nausea (principal); C25.1 Malignant neoplasm of body of pancreas
CPT/HCPCS: 96375; 96360; J2765; 96361; 96374

== ENCOUNTER 2017-07-20 10:31 | Outpatient (CLI) | payer MEDICARE, OTHER ==
[2017-07-20 10:57] VITALS: BP 133/68
[2017-07-20] MEDS ORDERED: ONDANSETRON HCL INJ/PF 4 MG/2 ML SDV IV PRN (11:26)
[2017-07-20] MEDS ORDERED: NORMAL SALINE 1000 ML 1,000 ML IV ONE (11:45)
== END 2017-07-20 12:02 | disposition home or self-care (01) ==
LOC: II 10:31 → 5TH 10:38 → II 12:02
PROVIDERS: ATTEND Internal Medicine
PROC: 3E033GC Introduction of Other Therapeutic Substance into Peripheral Vein, Percutaneous Approach (ICD-10-PCS; principal; 2017-07-20)
PROC: 3E0337Z Introduction of Electrolytic and Water Balance Substance into Peripheral Vein, Percutaneous Approach (ICD-10-PCS; 2017-07-20)
DX: E86.0 Dehydration (principal); R11.0 Nausea; C25.1 Malignant neoplasm of body of pancreas
CPT/HCPCS: 96374; 96360; J2405; 96361

== ENCOUNTER 2017-07-29 09:40 | Outpatient (CLI) | payer MEDICARE, OTHER ==
[~2017-07-29 09:40] MED LIST changes: -METOCLOPRAMIDE HCL INJ/PF 10 MG/2 ML SDV IV PRN; +ONDANSETRON HCL INJ/PF 4 MG/2 ML SDV IV PRN
[2017-07-29 10:28] VITALS: BP 132/67
== END 2017-07-29 12:29 | disposition home or self-care (01) ==
LOC: II 09:40 → 5TH 09:47 → II 12:29
PROVIDERS: ATTEND Internal Medicine
PROC: 3E0337Z Introduction of Electrolytic and Water Balance Substance into Peripheral Vein, Percutaneous Approach (ICD-10-PCS; principal; 2017-07-29)
PROC: 3E033GC Introduction of Other Therapeutic Substance into Peripheral Vein, Percutaneous Approach (ICD-10-PCS; 2017-07-29)
DX: E86.0 Dehydration (principal); R11.0 Nausea; C25.1 Malignant neoplasm of body of pancreas
CPT/HCPCS: 96375; 96360; J2405; 96361; 96374

== ENCOUNTER → 2017-08-05 | Outpatient (CLI) | payer MEDICARE, OTHER ==
--- NOTE | 2017-08-05 11:19 | RADIOLOGY REPORT (SQ) ---
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 TECHNIQUE: CT scan of the chest performed using helical scanning technique with dynamic intravenous contrast injection. Images reviewed with lung, soft tissue and bone windows. Reconstructed coronal and sagittal MPR images reviewed. All images stored on PACS. All CT scanners at this facility use dose modulation, iterative reconstruction, and/or weight based d osing when appropriate to reduce radiation dose to as low as reasonably achievable (ALARA). [facility]: Dose Right [facility]: CareDose [facility]: Dose Right [facility]: Teradose 4D [facility]: Free & Clear CONTRAST TYPE AND DOSE: 100 mL Isovue 370- low osmolar. RENAL FUNCTION: Creatinine 0.8. RADIATION DOSE: . LIMITATIONS: None. FINDINGS: LUNGS AND PLEURA: Chronic subpleural interstitial scarring. Bilateral lower lobe bronchie ctasis. No pulmonary nodules or masses. No focal infiltrates. No pleural effusion or pleural thick ening. HILAR AND MEDIASTINAL STRUCTURES: No identified masses or abnormal nodes. HEART AND VASCULAR STRUCTURES: No aneurysm or dissection. No central pulmonary emboli. No pericardi al effusion. HARDWARE: None in the chest. UPPER ABDOMEN: No significant findings. Limited exam. THYROID AND OTHER SOFT TISSUES: No masses. No adenopathy. BONES: No significant finding. OTHER: No other significant finding. IMPRESSION: STABLE CHRONIC LUNG DISEASE. NO FINDINGS TO SUGGEST METASTATIC INVOLVEMENT IN THE CHEST . TECHNICAL DOCUMENTATION: JOB ID: [id number] Quality ID # [id number]: Final reports with documentation of one or more dose reduction techniques (e.g., Au tomated exposure control, adjustment of the mA and/or kV according to patient size, use of iterative reconstruction technique) 2010 [employer]- All Rights Reserved
--- NOTE | 2017-08-05 11:30 | RADIOLOGY REPORT (SQ) ---
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 TECHNIQUE: CT scan of the abdomen and pelvis performed using helical scanning technique with dynamic intravenous contrast injection. No oral contrast. Images reviewed with lung, soft tissue, and bone windows. Reconstructed coronal and sagittal MPR images reviewed. Delayed images for evaluation of the urinary system also acquired. All images stored on PACS. All CT scanners at this facility use dose modulation, iterative reconstruction, and/or weight based d osing when appropriate to reduce radiation dose to as low as reasonably achievable (ALARA). [facility]: Dose Right [facility]: CareDose [facility]: Dose Right [facility]: Teradose 4D [facility]: [employer] CONTRAST TYPE AND DOSE: contrast/concentration: Isovue 370.00 mg/ml; Total Contrast Delivered: 100.0 ml; Total Saline Delivered: 58.9 ml RENAL FUNCTION: Creatinine 0.8. RADIATION DOSE: CT Rad equipment meets quality standard of care and radiation dose reduction techniq ues were employed. CTDIvol: 9.6 - 13.5 mGy. DLP: 1792 mGy-cm.. LIMITATIONS: None. FINDINGS: LOWER CHEST: No significant findings. Chronic scarring. No nodules or infiltrates. LIVER: Normal size. No masses. No dilated ducts. SPLEEN: Normal size. No focal lesions. PANCREAS: Again seen is an ill-defined mass in the pancreatic head. Margins are indistinct. General ly unchanged in size with transverse measurement 5.3 cm and AP measurement 3.6 cm. There is a focal area of decreased attenuation in the anterior portion of the mass, measuring 1.5 x 2 cm. Mild dilati on of the pancreatic duct. As previously mentioned, the mass does surround the confluence of the sup erior mesenteric vein, splenic vein, and portal vein with compression upon these structures. No occl usion evident. GALLBLADDER: No identified stones by CT criteria. No inflammatory changes to suggest cholecystitis. ADRENAL GLANDS: No significant masses or asymmetry. RIGHT KIDNEY AND URETER: No solid masses. No significant calcifications. No hydronephrosis or hyd roureter. LEFT KIDNEY AND URETER: No solid masses. No significant calcifications. No hydronephrosis or hydr oureter. AORTA AND VESSELS: No aneurysm. No dissection. Renal arteries, SMA, celiac without stenosis. RETROPERITONEUM: No retroperitoneal adenopathy, hemorrhage or masses. BOWEL AND PERITONEAL CAVITY: No masses or inflammatory changes. No free fluid or peritoneal masses. APPENDIX: Not visualized. PELVIS: No mass. No free fluid. Normal bladder. ABDOMINAL WALL: No masses. No hernias. BONES: No significant or acute findings. OTHER: No other significant finding. IMPRESSION: 1. ILL-DEFINED MASS IN THE PANCREATIC HEAD, RELATIVELY UNCHANGED IN OVERALL SIZE. THERE IS NOW AN AR EA OF DECREASED ATTENUATION IN THE ANTERIOR PORTION. THIS COULD REPRESENT DEVELOPING TUMOR NECROSIS. OTHERWISE NO CHANGE. 2. NO OTHER SIGNIFICANT OR ACUTE FINDING IN THE ABDOMEN OR PELVIS ON CT SCAN WITH IV CONTRAST. NO EV IDENCE OF ADENOPATHY OR METASTATIC INVOLVEMENT. TECHNICAL DOCUMENTATION: JOB ID: [id number] Quality ID # 436: Final reports with documentation of one or more dose reduction techniques (e.g., Au tomated exposure control, adjustment of the mA and/or kV according to patient size, use of iterative reconstruction technique) 2010 [employer]- All Rights Reserved
== END ==
LOC: RAD 08:39
PROVIDERS: ATTEND Internal Medicine
DX: C25.1 Malignant neoplasm of body of pancreas (principal); J47.9 Bronchiectasis, uncomplicated
CPT/HCPCS: 71260; 74177; 82565

== ENCOUNTER 2017-08-12 09:47 | Outpatient (CLI) | payer MEDICARE, OTHER ==
[2017-08-12 10:12] VITALS: BP 126/78
== END 2017-08-12 11:19 | disposition home or self-care (01) ==
LOC: II 09:47 → 5TH 09:48 → II 11:19
PROVIDERS: ATTEND Internal Medicine
PROC: 3E0337Z Introduction of Electrolytic and Water Balance Substance into Peripheral Vein, Percutaneous Approach (ICD-10-PCS; principal; 2017-08-12)
PROC: 3E033GC Introduction of Other Therapeutic Substance into Peripheral Vein, Percutaneous Approach (ICD-10-PCS; 2017-08-12)
DX: E86.0 Dehydration (principal); R11.0 Nausea; C25.1 Malignant neoplasm of body of pancreas
CPT/HCPCS: 96367; 96360; J2405; 96361; 96374

== ENCOUNTER 2017-08-18 13:40 | Outpatient (CLI) | payer MEDICARE, OTHER ==
[2017-08-18 14:13] VITALS: BP 129/62
== END 2017-08-18 15:52 | disposition home or self-care (01) ==
LOC: II 13:40 → 5TH 13:50 → II 15:52
PROVIDERS: ATTEND Internal Medicine
PROC: 3E033GC Introduction of Other Therapeutic Substance into Peripheral Vein, Percutaneous Approach (ICD-10-PCS; principal; 2017-08-18)
PROC: 3E0337Z Introduction of Electrolytic and Water Balance Substance into Peripheral Vein, Percutaneous Approach (ICD-10-PCS; 2017-08-18)
DX: E86.0 Dehydration (principal); R11.0 Nausea; C25.1 Malignant neoplasm of body of pancreas
CPT/HCPCS: 96374; 96360; J2405; 96361

== ENCOUNTER 2017-09-01 12:38 | Outpatient (CLI) | payer MEDICARE, OTHER ==
[2017-09-01 13:40] VITALS: BP 149/67
== END 2017-09-01 14:48 | disposition home or self-care (01) ==
LOC: II 12:38 → 5TH 12:52 → II 14:48
PROVIDERS: ATTEND Internal Medicine
PROC: 3E0337Z Introduction of Electrolytic and Water Balance Substance into Peripheral Vein, Percutaneous Approach (ICD-10-PCS; principal; 2017-09-01)
PROC: 3E033GC Introduction of Other Therapeutic Substance into Peripheral Vein, Percutaneous Approach (ICD-10-PCS; 2017-09-01)
DX: E86.0 Dehydration (principal); C25.1 Malignant neoplasm of body of pancreas; R11.0 Nausea
CPT/HCPCS: 96374; 96360; J2405; 96361

== ENCOUNTER 2017-09-08 10:43 | Outpatient (CLI) | payer MEDICARE, OTHER ==
[2017-09-08 11:03] VITALS: BP 148/68
== END 2017-09-08 13:34 | disposition home or self-care (01) ==
LOC: II 10:43 → 5TH 10:44 → II 13:34
PROVIDERS: ATTEND Internal Medicine
PROC: 3E0337Z Introduction of Electrolytic and Water Balance Substance into Peripheral Vein, Percutaneous Approach (ICD-10-PCS; principal; 2017-09-08)
PROC: 3E033GC Introduction of Other Therapeutic Substance into Peripheral Vein, Percutaneous Approach (ICD-10-PCS; 2017-09-08)
DX: E86.0 Dehydration (principal); R11.0 Nausea; C25.1 Malignant neoplasm of body of pancreas
CPT/HCPCS: 96374; 96360; J2405; 96361

== ENCOUNTER 2017-09-19 09:16 | Day surgery (SDC) | payer MEDICARE, OTHER ==
[~2017-09-19 09:16] MED LIST changes: +CEFAZOLIN 1 GM/D5W RTU 1 GM/50 ML RTUPB IV PRN; +DEXTROSE 5%-1/2 NORMAL SALINE 1,000 ML IV PRN; +DIAZEPAM 5 MG TABLET PO PRN; -NORMAL SALINE 1000 ML 1,000 ML IV PRN; -ONDANSETRON HCL INJ/PF 4 MG/2 ML SDV IV PRN; +OXYCODONE-ACETAMINOPHEN 5-325 MG TABLET PO PRN
[2017-09-19 10:01] LABS: HEMATOCRIT 34.1 % (37.9-51.0); HEMOGLOBIN 11.3 g/dL (13.5-17.0); MEAN CORPUSCULAR HEMOGLOBIN 30.6 pg (27.0-33.4); MEAN CORPUSCULAR HGB CONC 33.1 g/dL (32.0-36.0); MEAN CORPUSCULAR VOLUME 92 fl (80-97); PLATELET COUNT 295 10^3/uL (150-450); RED BLOOD COUNT 3.69 10^6/uL (4.35-5.55); RED CELL DISTRIBUTION WIDTH 18.1 % (11.5-14.0); WHITE BLOOD COUNT 7.5 10^3/uL (4.0-10.5)
[2017-09-19 10:19] LABS: ANION GAP 6 (5-19); BLOOD UREA NITROGEN 9 mg/dL (7-20); CALCIUM 9.2 mg/dL (8.4-10.2); CARBON DIOXIDE 29 mmol/L (22-30); CHLORIDE 104 mmol/L (98-107); GLUCOSE 89 mg/dL (75-110); POTASSIUM 4.2 mmol/L (3.6-5.0); SODIUM 139.2 mmol/L (137-145)
--- NOTE | 2017-09-19 10:35 | RADIOLOGY REPORT (SQ) ---
EXAM DESCRIPTION: CHEST SINGLE VIEW COMPLETED DATE/TIME: 09/19/2017 9:42 am REASON FOR STUDY: PREOP COMPARISON: Chest CT scan dated July 2017 EXAM PARAMETERS: NUMBER OF VIEWS: One view. TECHNIQUE: Single frontal radiographic view of the chest acquired. RADIATION DOSE: NA LIMITATIONS: None. FINDINGS: LUNGS AND PLEURA: No opacities, masses or pneumothorax. No pleural effusion. Chronic appe aring changes are identified MEDIASTINUM AND HILAR STRUCTURES: No masses. Contour normal. HEART AND VASCULAR STRUCTURES: Cardiac silhouette is enlarged. BONES: No acute findings. HARDWARE: None in the chest. OTHER: No other significant finding. IMPRESSION: No acute changes. Other findings as noted above TECHNICAL DOCUMENTATION: JOB ID: [id number] [email or web address]- All Rights Reserved Reading location - IP/workstation name: [email or web address]
[2017-09-19] MEDS ORDERED: LIDOCAINE 0.5% INJ-PF (5 MG/ML) 50 ML SDV ONE (12:03)
[2017-09-19] MEDS ORDERED: MIDAZOLAM 2 MG/2 ML INJ ONE (12:03)
[2017-09-19] MEDS ORDERED: FENTANYL CITRATE INJ/PF 100 MCG/2 ML AMPUL ONE (12:04)
[2017-09-19] MEDS ORDERED: BACITRACIN INJ 50,000 UNIT VIAL ONE (12:04)
--- NOTE | 2017-09-19 14:05 | RADIOLOGY REPORT (SQ) ---
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 FLUOROSCOPY TIME: Reported has 0.0 minutes. 12 images saved to PACS. TECHNIQUE: Intra-operative images acquired during surgical procedure to evaluate progress. NUMBER OF IMAGES: 12 images. LIMITATIONS: None. FINDINGS: Images of the chest acquired during catheter placement. IMPRESSION: IMAGE(S) OBTAINED DURING PROCEDURE. COMMENT: Quality ID 145: Final reports for procedures using fluoroscopy that document radiation exp osure indices, or exposure time and number of fluorographic images (if radiation exposure indices are not available) Please consult full operative report of the attending physician for description of the procedure. TECHNICAL DOCUMENTATION: JOB ID: [id number] [employer]- All Rights Reserved Reading location - IP/workstation name: [email or web address]
--- NOTE | 2017-09-19 14:05 | RADIOLOGY REPORT (SQ) ---
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 FLUOROSCOPY TIME: Reported has 0.0 minutes. 12 images saved to PACS. TECHNIQUE: Intra-operative images acquired during surgical procedure to evaluate progress. NUMBER OF IMAGES: 12 images. LIMITATIONS: None. FINDINGS: Images of the chest acquired during catheter placement. IMPRESSION: IMAGE(S) OBTAINED DURING PROCEDURE. COMMENT: Quality ID 145: Final reports for procedures using fluoroscopy that document radiation exp osure indices, or exposure time and number of fluorographic images (if radiation exposure indices are not available) Please consult full operative report of the attending physician for description of the procedure. TECHNICAL DOCUMENTATION: JOB ID: [id number] 2006 [employer]- All Rights Reserved Reading location - IP/workstation name: [email or web address]
--- NOTE | 2017-09-19 14:05 | RADIOLOGY REPORT (SQ) ---
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 FLUOROSCOPY TIME: Reported has 0.0 minutes. 12 images saved to PACS. TECHNIQUE: Intra-operative images acquired during surgical procedure to evaluate progress. NUMBER OF IMAGES: 12 images. LIMITATIONS: None. FINDINGS: Images of the chest acquired during catheter placement. IMPRESSION: IMAGE(S) OBTAINED DURING PROCEDURE. COMMENT: Quality ID 145: Final reports for procedures using fluoroscopy that document radiation exp osure indices, or exposure time and number of fluorographic images (if radiation exposure indices are not available) Please consult full operative report of the attending physician for description of the procedure. TECHNICAL DOCUMENTATION: JOB ID: [id number] [employer]- All Rights Reserved Reading location - IP/workstation name: [email or web address]
[2017-09-19 15:09] VITALS: BP 154/85
--- NOTE | 2017-09-19 15:14 | Discharge Summary ---
Discharge Summary (SDC) - Discharge Final Diagnosis: Pancreatic cancer. Date of Surgery: 09/19/17 Discharge Date: 09/19/17 Condition: Good Forms: ASU Anesthesia D/C Instruction, Discharge POC-Surgical Service Treatment or Instructions: Discharge home [after recovery per ASU criteria]. Diet ,as tolerated, when fully awake advance as tolerated. Activities within moderation encouraged. Follow up in my office by appointment in about [1 week]. Call for appointment. Leave wounds [covered], [keep clean and dry, until office visit in 1 week]. Meds per med rec. Hold of on school/work [until evaluation in office]. May shower [in 48 hrs], [try to keep operated area as dry as possible]. Referrals: JOSE INIGUEZ MD [ACTIVE STAFF] - 09/29/17 8:45 am Discharge Diet: As Tolerated Respiratory Treatments at Home: Deep Breathing/Coughing Discharge Activity: Activity As Tolerated, No Driving, No Lifting Over 10 Pounds , No Lifting/Push/Pulling, Slowly Increase Activity, No tub bath Home Care Assistance: None Needed Report the Following to Your Physician Immediately: Shortness of Breath, Nausea , Vomiting, Increase in Pain, Fever over 101 Degrees, Unusual Bleeding, Redness , Swelling, Warmth, Increased Soreness, Drainage-Yellow, Drainage-Chew, Drainage -Green, Drainage-Foul Smelling, Numbness, Tingling Sensation, Wheezing, IV Site Infection Signs
--- NOTE | 2017-09-19 15:16 | Operative Report ---
Operative Report DATE OF SURGERY: 09/19/17 PREOPERATIVE DIAGNOSIS: Pancreatic cancer. POSTOPERATIVE DIAGNOSIS: Pancreatic cancer. OPERATION: 1. Ultrasound evaluation of the right internal jugular vein. 2. Insertion of Port-A-Cath via real-time ultrasound guidance in the right internal jugular vein. 3. Angiogram and interpretation. SURGEON: JOSE WOOD COLORER MACHINE: None. ANESTHESIA: Moderate Sedation TISSUE REMOVED OR ALTERED: Not applicable. COMPLICATIONS: None. ESTIMATED BLOOD LOSS: 10 mL. INTRAOPERATIVE FINDINGS: Of a satisfactory position and function of current Port -A-Cath. Easy egress of blood and ingress of heparinized solution. Smooth flow of contrast through the catheter, right atrium and pulmonary outflow tract. PROCEDURE: After obtaining informed consent, the patient was taken to the Filter Changing Technician and positioned supine. The [right] neck and chest were prepared with chlorhexidine and draped out with sterile linen. After the " universal timeout", in which it was verified that the patient continued to receive antibiotic, the procedure commenced. A steriley sheathed ultrasound probe was used to evaluate the [ right] internal jugular vein. Local anesthesia was infiltrated adjacent to the probe. Access into the [right] internal jugular vein was obtained using a micropuncture needle, followed by micropuncture wire and then a micropuncture catheter. This was followed by introduction of a 0.035 guidewire the tip of which was placed down into the inferior vena cava . The port sites was marked , locally anesthetized and incision made. Dissection now proceeded to the deep subcutaneous subcutaneous tissues so that a pocket for the port was made. Meticulous hemostasis was secured and the catheter was tunneled between the 2 incisions. Proximally, the catheter was now positioned using a peel-away sheath. Distally the catheter was tailored to an appropriate length and then mated to the port using the contained fixating device. The port was now placed in the pocket and the catheter optimally positioned. The port was accessed with a Chatterjee needle and an angiogram done under digital subtraction. The findings as dictated. With adequate and satisfactory positioning, both lumens of the chamber were irrigated with heparinized solution. The wounds were now closed using interrupted 3-0 PDS to the subcutaneous tissues and a continuous subcuticular suture of 4-0 Monocryl to the skin. These are reinforced with Steri-Strips over benzoin and then dressings applied. Copies of the dictated operative report for Dr. Jose Vasquez MD.
== END 2017-09-19 15:00 | disposition home or self-care (01) ==
LOC: CCL 09:16
PROVIDERS: ATTEND Surgery
PROC: 05HM33Z Insertion of Infusion Device into Right Internal Jugular Vein, Percutaneous Approach (ICD-10-PCS; principal; 2017-09-19)
DX: C25.1 Malignant neoplasm of body of pancreas (principal); K21.9 Gastro-esophageal reflux disease without esophagitis; E05.90 Thyrotoxicosis, unspecified without thyrotoxic crisis or storm; Z85.038 Personal history of other malignant neoplasm of large intestine
CPT/HCPCS: 36415; 85027; 80048; 36561; 76937; 77001; 71045; C1752; C1788; Q9967; J2250; J3490 ×2; J0690; A9270 ×2; J3010; J1644

== ENCOUNTER 2017-09-22 08:35 | Outpatient (CLI) | payer MEDICARE, OTHER ==
[~2017-09-22 08:35] MED LIST changes: -CEFAZOLIN 1 GM/D5W RTU 1 GM/50 ML RTUPB IV PRN; -DEXTROSE 5%-1/2 NORMAL SALINE 1,000 ML IV PRN; -DIAZEPAM 5 MG TABLET PO PRN; +NORMAL SALINE 1000 ML 1,000 ML IV PRN; +ONDANSETRON HCL INJ/PF 4 MG/2 ML SDV IV PRN; -OXYCODONE-ACETAMINOPHEN 5-325 MG TABLET PO PRN
[2017-09-22] MEDS ORDERED: NORMAL SALINE 10 ML SDV (AFTER EACH USE) IV PRN (09:07)
[2017-09-22 09:08] VITALS: BP 145/68
[2017-09-22] MEDS ORDERED: NORMAL SALINE 10 ML SDV (SCHEDULED) IV SCH (10:00)
== END 2017-09-22 10:08 | disposition home or self-care (01) ==
LOC: II 08:35 → 5TH 08:38 → II 10:08
PROVIDERS: ATTEND Internal Medicine
PROC: 3E043GC Introduction of Other Therapeutic Substance into Central Vein, Percutaneous Approach (ICD-10-PCS; principal; 2017-09-22)
PROC: 3E0437Z Introduction of Electrolytic and Water Balance Substance into Central Vein, Percutaneous Approach (ICD-10-PCS; 2017-09-22)
DX: E86.0 Dehydration (principal); C25.1 Malignant neoplasm of body of pancreas; R11.0 Nausea
CPT/HCPCS: 96374; 96375; 96360; J2405; 96361

== ENCOUNTER 2017-09-29 09:17 | Outpatient (CLI) | payer MEDICARE, OTHER ==
[2017-09-29 09:39] VITALS: BP 112/41
== END 2017-09-29 10:30 | disposition home or self-care (01) ==
LOC: II 09:17 → 5TH 09:20 → II 10:30
PROVIDERS: ATTEND Internal Medicine
PROC: 3E0437Z Introduction of Electrolytic and Water Balance Substance into Central Vein, Percutaneous Approach (ICD-10-PCS; principal; 2017-09-29)
PROC: 3E043GC Introduction of Other Therapeutic Substance into Central Vein, Percutaneous Approach (ICD-10-PCS; 2017-09-29)
DX: E86.0 Dehydration (principal); R11.0 Nausea; C25.1 Malignant neoplasm of body of pancreas
CPT/HCPCS: 96374; 96360; J2405; 96361

== ENCOUNTER → 2017-10-06 | Outpatient (CLI) | payer MEDICARE, OTHER ==
--- NOTE | 2017-10-06 11:07 | RADIOLOGY REPORT (SQ) ---
EXAM DESCRIPTION: CT CHEST WITH COMPLETED DATE/TIME: 10/06/2017 9:33 am REASON FOR STUDY: PANCREATIC CA C25.1 MALIGNANT NEOPLASM OF BODY OF PANCREAS COMPARISON: 08/05/2017 TECHNIQUE: CT scan of the chest performed using helical scanning technique with dynamic intravenous contrast injection. Images reviewed with lung, soft tissue and bone windows. Reconstructed coronal and sagittal MPR images reviewed. All images stored on PACS. All CT scanners at this facility use dose modulation, iterative reconstruction, and/or weight based d osing when appropriate to reduce radiation dose to as low as reasonably achievable (ALARA). [facility]: Dose Right [facility]: CareDose [facility]: Dose Right [facility]: Teradose 4D [facility]: [employer] CONTRAST TYPE AND DOSE: See separate report of the same date. RENAL FUNCTION: See separate report of the same date. RADIATION DOSE: . LIMITATIONS: None. FINDINGS: LUNGS AND PLEURA: More conspicuous interlobular septal thickening in both lungs with relat evi sparing of the left upper lobe. No definitive nodules. No significant pleural fluid. HILAR AND MEDIASTINAL STRUCTURES: No identified masses or abnormal nodes. HEART AND VASCULAR STRUCTURES: No aneurysm or dissection. No central pulmonary emboli. No pericardi al effusion. HARDWARE: None in the chest. UPPER ABDOMEN: See separate report of the CT of the abdomen. THYROID AND OTHER SOFT TISSUES: No masses. No adenopathy. BONES: No significant finding. OTHER: Right-sided port tip in the SVC. 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 TECHNICAL DOCUMENTATION: JOB ID: [id number] Quality ID # 436: Final reports with documentation of one or more dose reduction techniques (e.g., Au tomated exposure control, adjustment of the mA and/or kV according to patient size, use of iterative reconstruction technique) 2010 [employer]- All Rights Reserved Reading location - IP/workstation name: [email or web address]
--- NOTE | 2017-10-06 11:40 | RADIOLOGY REPORT (SQ) ---
EXAM DESCRIPTION: CT ABD/PELVIS WITH IV ONLY COMPLETED DATE/TIME: 10/06/2017 9:33 am REASON FOR STUDY: PANCREATIC CA C25.1 MALIGNANT NEOPLASM OF BODY OF PANCREAS COMPARISON: With 08/05/2017. TECHNIQUE: CT scan of the abdomen and pelvis performed using helical scanning technique with dynamic intravenous contrast injection. No oral contrast. Images reviewed with lung, soft tissue, and bone windows. Reconstructed coronal and sagittal MPR images reviewed. Delayed images for evaluation of the urinary system also acquired. All images stored on PACS. All CT scanners at this facility use dose modulation, iterative reconstruction, and/or weight based d osing when appropriate to reduce radiation dose to as low as reasonably achievable (ALARA). [facility]: Dose Right [facility]: CareDose [facility]: Dose Right [facility]: Teradose 4D [facility]: [employer] CONTRAST TYPE AND DOSE: contrast/concentration: Isovue 370.00 mg/ml; Total Contrast Delivered: 100.0 ml; Total Saline Delivered: 72.0 ml RENAL FUNCTION: BUN 9 creatinine 0.8 RADIATION DOSE: CT Rad equipment meets quality standard of care and radiation dose reduction techniq ues were employed. CTDIvol: 9.4 - 11.7 mGy. DLP: 1588 mGy-cm.. LIMITATIONS: None. FINDINGS: LOWER CHEST: See separate report of the CT of the chest. LIVER: Normal size. No masses. No dilated ducts. SPLEEN: Normal size. No focal lesions. PANCREAS: Increase in size of pancreatic mass with indistinct margins, approximately 4.9 x 2.2 cm. T here is encasement of the superior mesenteric vein and common hepatic artery. GALLBLADDER: No identified stones by CT criteria. No inflammatory changes to suggest cholecystitis. ADRENAL GLANDS: No significant masses or asymmetry. RIGHT KIDNEY AND URETER: No solid masses. No significant calcifications. No hydronephrosis or hyd roureter. LEFT KIDNEY AND URETER: No solid masses. No significant calcifications. No hydronephrosis or hydr oureter. AORTA AND VESSELS: No aneurysm. RETROPERITONEUM: No retroperitoneal adenopathy, hemorrhage or masses. BOWEL AND PERITONEAL CAVITY: Anastomosis transverse colon. No inflammatory changes. No ascites, maren nopathy or free air. APPENDIX: Normal. PELVIS: No mass. No free fluid. Normal bladder. ABDOMINAL WALL: No masses. No hernias. BONES: No significant or acute findings. OTHER: No other significant finding. IMPRESSION: Increase in size of pancreatic head mass. TECHNICAL DOCUMENTATION: JOB ID: [id number] Quality ID # 436: Final reports with documentation of one or more dose reduction techniques (e.g., Au tomated exposure control, adjustment of the mA and/or kV according to patient size, use of iterative reconstruction technique) 2010 [employer]- All Rights Reserved Reading location - IP/workstation name: [email or web address]
== END ==
LOC: RAD 08:35
PROVIDERS: ATTEND Internal Medicine
DX: C25.1 Malignant neoplasm of body of pancreas (principal)
CPT/HCPCS: 71260; 74177

== ENCOUNTER 2017-10-28 19:34 | Emergency (ER) | payer MEDICARE, OTHER ==
[2017-10-28] MEDS ORDERED: NORMAL SALINE 1000 ML 1,000 ML IV PRN (20:48)
[2017-10-28] MEDS ORDERED: ONDANSETRON HCL INJ/PF 4 MG/2 ML SDV IV ONE (21:01)
--- NOTE | 2017-10-28 21:03 | ER Document Report ---
ED General - General Chief Complaint: Other Stated Complaint: ABDOMINAL PAIN Time Seen by Provider: 10/28/17 20:47 TRAVEL OUTSIDE OF THE [place] IN LAST 30 DAYS: No - HPI Notes: Patient is a 81-year-old male who presents to the emergency department requesting IV fluids for hydration. Patient states that he has pancreatic cancer and is undergoing chemotherapy and usually presents as an outpatient to get fluids when he starts feeling dehydrated. Patient states that he is still drinking ensure, but has had a limited amount of the last couple days. Patient states that they added another chemo medication to his regimen and started feeling dry at this afternoon. Patient states that he usually performs this as an outpatient, but they are currently not available to him so he came to the emergency department. Patient states that he has chronic abdominal pain that has remained unchanged due to the pancreatic cancer. He does have PRN zofran for his nausea. Patient states that he did have pneumonia 2 weeks ago, but those symptoms have since resolved. Patient states that he has otherwise been well and was able to make it to the grocery store today with his . Patient states that he is urinating normally and having normal bowel movements. Pt states that he does not want any labs or imaging performed as he has not had any acute changes to his ongoing issues and just needs some fluids. He has no other concerns or complaints at this time. Denies any drug allergies. Denies any headache, fever, URI, sore throat, chest pain, palpitations, syncope, cough , shortness of breath, wheeze, dyspnea, diarrhea, urinary retention, dysuria, hematuria, loss of control of bowel or bladder, numbness/tingling, saddle anesthesia, muscle paralysis/weakness, or rash. - Related Data Allergies/Adverse Reactions: No Known Allergies Allergy (Verified 09/19/17 09:57) Past Medical History - Social History Smoking Status: Former Smoker Chew tobacco use (# tins/day): No Frequency of alcohol use: None Drug Abuse: None Family History: Reviewed & Not Pertinent Patient has suicidal ideation: No Patient has homicidal ideation: No - Past Medical History Cardiac Medical History: Denies: Hx Coronary Artery Disease, Hx Heart Attack, Hx Hypertension Pulmonary Medical History: Reports: Hx Asthma - AT A YOUNGER AGE, NO ISSUES LATELY Denies: Hx Bronchitis, Hx COPD, Hx Pneumonia Neurological Medical History: Denies: Hx Cerebrovascular Accident, Hx Seizures Renal/ Medical History: Denies: Hx Peritoneal Dialysis GI Medical History: Reports: Hx Ulcer - IN PAST BUT HEALED. Denies: Hx Hepatitis, Hx Hiatal Hernia Musculoskeltal Medical History: Reports Hx Arthritis - OSTEO Infectious Medical History: Denies: Hx Hepatitis Past Surgical History: Denies: Hx Open Heart Surgery, Hx Pacemaker - Immunizations Hx Diphtheria, Pertussis, Tetanus Vaccination: Yes Hx Pneumococcal Vaccination: 03/11/16 Review of Systems - Review of Systems -: Yes All other systems reviewed and negative Physical Exam - Vital signs Vitals: Temp Pulse Resp BP Pulse Ox 98.1 F 85 17 169/91 H 94 10/28/17 19:59 10/28/17 19:59 10/28/17 19:59 10/28/17 19:59 10/28/17 19:59 - Notes Notes: PHYSICAL EXAMINATION: GENERAL: Well-appearing, well-nourished and in no acute distress. A&ox4. Answers questions appropriately. HEAD: Atraumatic, normocephalic. EYES: Pupils equal round and reactive to light, extraocular movements intact, sclera anicteric, conjunctiva are normal. ENT: Nares patent and without discharge. oropharynx clear without exudates. No tonsilar hypertrophy or erythema. Moist mucous membranes. NECK: Normal range of motion, supple without lymphadenopathy LUNGS: Breath sounds clear to auscultation bilaterally and equal. No wheezes rales or rhonchi. HEART: Regular rate and rhythm without murmurs, rubs, gallops. ABDOMEN: Soft, nondistended abdomen. No guarding, no rebound. No masses appreciated. Normal bowel sounds present. No CVA tenderness bilaterally. + mild epigastric tenderness (chronic per patient). Musculoskeletal: FROM to passive/active. Strength 5+/5. Extremities: No cyanosis, clubbing, or edema b/l. Peripheral pulses 2+. Capillary refill less than 3 seconds. NEUROLOGICAL: Cranial nerves grossly intact. Normal speech, normal gait. Normal sensory, motor exams PSYCH: Normal mood, normal affect. SKIN: Warm, Dry, normal turgor, no rashes or lesions noted. Course - Re-evaluation Re-evalutation: 10/28/17 21:[address] Islas to give an update about a patient of theirs who came to the ED who is in agreement with hydration and follow-up with them. 10/28/17 22:49 Patient is an afebrile, well-hydrated, 81-year-old male who presents to the ED with mild dehydration for rehydration purposes. Vitals are acceptable. PE is otherwise unremarkable. Patient was given 2 L normal saline. Patient states that he is feeling better and is ready to go home. Patient was also given Zofran IV. He has no new concerns or complaints at this time. Low suspicion for any severe dehydration, sepsis, meningitis, or other systemic emergent condition at this time. Patient will follow up with his oncologist early next week. Return to the ED with any worsening/concerning symptoms otherwise as reviewed discharge. Patient and spouse are in agreement. - Vital Signs Vital signs: Temp Pulse Resp BP Pulse Ox 98.1 F 81 18 170/68 H 99 10/28/17 19:59 10/28/17 21:34 10/28/17 21:34 10/28/17 21:34 10/28/17 21:34 Discharge - Discharge Clinical Impression: Dehydration, mild Condition: Stable Disposition: HOME, SELF-CARE Additional Instructions: Maintain adequate fluid and food intake [place] diet ([employer] Bananas, rice, apples, toast, etc Zofran as needed tylenol if needed Monitor for any worsening symptoms Make sure you are staying hydrated enough to urinate and have normal BM's Recheck with your PCM/oncologist in 3-5 days Return to the ED with any worsening symptoms and/or development of fever, headache, chest pain, palpitations, syncope, shortness of breath, trouble breathing, abdominal pain, n/v/d, blood in stool/urine, weakness, or other worsening symptoms that are concerning to you. Forms: Elevated Blood Pressure Referrals: SAMANTHA PERDUE MD [Primary Care Provider] - Follow up in 3-5 days VICTORIA MACHADO MD [ACTIVE STAFF] - Follow up in 3-5 days
[2017-10-28 21:35] VITALS: BP 170/68
== END 2017-10-28 23:09 | disposition home or self-care (01) ==
LOC: ER 19:34
DX: E86.0 Dehydration (principal); R10.9 Unspecified abdominal pain; C25.9 Malignant neoplasm of pancreas, unspecified; Z79.899 Other long term (current) drug therapy; Z87.891 Personal history of nicotine dependence
CPT/HCPCS: 99284; J2405; J7030

== ENCOUNTER → 2017-12-23 | Outpatient (CLI) | payer MEDICARE, OTHER ==
--- NOTE | 2017-12-23 16:18 | RADIOLOGY REPORT (SQ) ---
EXAM DESCRIPTION: CT CHEST WITH COMPLETED DATE/TIME: 12/23/2017 1:38 pm REASON FOR STUDY: PANCREATIC CA (C25.1) C25.1 MALIGNANT NEOPLASM OF BODY OF PANCREAS COMPARISON: 08/05/2017 and 06/24/2007. TECHNIQUE: CT scan of the chest performed using helical scanning technique with dynamic intravenous contrast injection. Images reviewed with lung, soft tissue and bone windows. Reconstructed coronal and sagittal MPR images reviewed. All images stored on PACS. All CT scanners at this facility use dose modulation, iterative reconstruction, and/or weight based d osing when appropriate to reduce radiation dose to as low as reasonably achievable (ALARA). [facility]: Dose Right [facility]: CareDose [facility]: Dose Right [facility]: Teradose 4D [facility]: [employer] CONTRAST TYPE AND DOSE: 97 mL Isovue 370- low osmolar. RENAL FUNCTION: BUN 15 creatinine 0.9. RADIATION DOSE: . LIMITATIONS: None. FINDINGS: LUNGS AND PLEURA: Stable chronic changes. Interstitial scarring and bronchiectasis in the lower lobes. No infiltrates, nodules, masses. No pneumothorax. No effusions. HILAR AND MEDIASTINAL STRUCTURES: No identified masses or abnormal nodes. HEART AND VASCULAR STRUCTURES: No aneurysm or dissection. No central pulmonary emboli. No pericardi al effusion. HARDWARE: Vascular access port. UPPER ABDOMEN: See separate report of the CT of the abdomen. THYROID AND OTHER SOFT TISSUES: No masses. No adenopathy. BONES: No significant finding. OTHER: No other significant finding. IMPRESSION: STABLE CHRONIC LUNG DISEASE. NO ACUTE FINDINGS OR INTERVAL CHANGE. NO EVIDENCE OF META STATIC INVOLVEMENT IN THE CHEST. TECHNICAL DOCUMENTATION: JOB ID: [id number] Quality ID # 436: Final reports with documentation of one or more dose reduction techniques (e.g., Au tomated exposure control, adjustment of the mA and/or kV according to patient size, use of iterative reconstruction technique) 2010 [employer]- All Rights Reserved Reading location - IP/workstation name: [email or web address]
--- NOTE | 2017-12-23 16:26 | RADIOLOGY REPORT (SQ) ---
EXAM DESCRIPTION: CT ABD/PELVIS WITH IV ONLY COMPLETED DATE/TIME: 12/23/2017 1:38 pm REASON FOR STUDY: PANCREATIC CA (C25.1) C25.1 MALIGNANT NEOPLASM OF BODY OF PANCREAS COMPARISON: 10/06/2017 and 08/05/2017. TECHNIQUE: CT scan of the abdomen and pelvis performed using helical scanning technique with dynamic intravenous contrast injection. No oral contrast. Images reviewed with lung, soft tissue, and bone windows. Reconstructed coronal and sagittal MPR images reviewed. Delayed images for evaluation of the urinary system also acquired. All images stored on PACS. All CT scanners at this facility use dose modulation, iterative reconstruction, and/or weight based d osing when appropriate to reduce radiation dose to as low as reasonably achievable (ALARA). [facility]: Dose Right [facility]: CareDose [facility]: Dose Right [facility]: Teradose 4D [facility]: [employer] CONTRAST TYPE AND DOSE: contrast/concentration: Isovue 370.00 mg/ml; Total Contrast Delivered: 97.0 ml; Total Saline Delivered: 61.4 ml RENAL FUNCTION: BUN 15 creatinine 0.9. RADIATION DOSE: CT Rad equipment meets quality standard of care and radiation dose reduction techniq ues were employed. CTDIvol: 9.5 - 11.3 mGy. DLP: 1576 mGy-cm.. LIMITATIONS: None. FINDINGS: LOWER CHEST: No significant findings. No nodules or infiltrates. LIVER: Normal size. No masses. No dilated ducts. SPLEEN: Normal size. No focal lesions. PANCREAS: Again seen is an ill-defined mass in the head of the pancreas. The margins of the mass are indistinct but overall the mass appears relatively unchanged. No significant calcifications. No adj acent inflammation or peripancreatic fluid collections. Pancreatic duct not dilated. GALLBLADDER: No identified stones by CT criteria. No inflammatory changes to suggest cholecystitis. ADRENAL GLANDS: No significant masses or asymmetry. RIGHT KIDNEY AND URETER: No solid masses. No significant calcifications. No hydronephrosis or hyd roureter. LEFT KIDNEY AND URETER: No solid masses. No significant calcifications. No hydronephrosis or hydr oureter. AORTA AND VESSELS: No aneurysm. No dissection. Renal arteries, SMA, celiac without stenosis. RETROPERITONEUM: No retroperitoneal adenopathy, hemorrhage or masses. BOWEL AND PERITONEAL CAVITY: Previous colon surgery. Colonic diverticulosis. No masses or inflammat ory changes. No free fluid or peritoneal masses. APPENDIX: Not visualized. PELVIS: No mass. No free fluid. Normal bladder. ABDOMINAL WALL: No masses. No hernias. BONES: No significant or acute findings. OTHER: No other significant finding. IMPRESSION: 1. MASS IN THE PANCREATIC HEAD. INDISTINCT MARGINS. OVERALL APPEARS UNCHANGED FROM THE MOST RECENT STUDY. 2. COLONIC DIVERTICULOSIS. NO OTHER SIGNIFICANT OR ACUTE FINDING IN THE ABDOMEN OR PELVIS ON CT SCAN WITH IV CONTRAST. TECHNICAL DOCUMENTATION: JOB ID: [id number] Quality ID # 436: Final reports with documentation of one or more dose reduction techniques (e.g., Au tomated exposure control, adjustment of the mA and/or kV according to patient size, use of iterative reconstruction technique) 2010 [employer]- All Rights Reserved Reading location - IP/workstation name: [email or web address]
== END ==
LOC: RAD 12:39
PROVIDERS: ATTEND Internal Medicine Hematology & Oncology
DX: C25.1 Malignant neoplasm of body of pancreas (principal)
CPT/HCPCS: 71260; 74177

== ENCOUNTER → 2018-02-16 | Outpatient (CLI) | payer MEDICARE, OTHER ==
--- NOTE | 2018-02-16 16:16 | RADIOLOGY REPORT (SQ) ---
EXAM DESCRIPTION: CT CHEST WITH; CT ABD/PELVIS WITH IV ONLY COMPLETED DATE/TIME: 02/16/2018 9:00 am REASON FOR STUDY: PANCREATIC CA C25.1 MALIGNANT NEOPLASM OF BODY OF PANCREAS COMPARISON: PET-CT 04/24/2017 CT abdomen pelvis 10/06/2017 CT chest abdomen and pelvis 12/23/2017, 08/05/2017, 06/24/2017 CONTRAST TYPE AND DOSE: contrast/concentration: Isovue 350.00 mg/ml; Total Contrast Delivered: 94.0 ml; Total Saline Delivered: 71.0 ml RENAL FUNCTION: Creatinine 0.8 TECHNIQUE: CT scan of the chest performed using helical scanning technique with dynamic intravenous contrast injection. Images reviewed with lung, soft tissue and bone windows. Reconstructed coronal a nd sagittal MPR images reviewed. All images stored on PACS. CT scan of the abdomen and pelvis performed with intravenous and without oral contrastusing helical s luann technique with dynamic intravenous contrast injection. Images reviewed with lung, soft tissu e and bone windows. Reconstructed coronal and sagittal MPR images reviewed. Delayed images for eval uation of the urinary system also acquired and evaluated. All images stored on PACS. All CT scanners at this facility use dose modulation, iterative reconstruction, and/or weight based d osing when appropriate to reduce radiation dose to as low as reasonably achievable (ALARA). [facility]: Dose Right [facility]: CareDose [facility]: Dose Right [facility]: Teradose 4D [facility]: [employer] RADIATION DOSE: CT Rad equipment meets quality standard of care and radiation dose reduction techniq ues were employed. CTDIvol: 7.4 - 9.0 mGy. DLP: 1216 mGy-cm. . LIMITATIONS: None. FINDINGS: CHEST: LUNGS AND PLEURA: Chronic pulmonary fibrosis with increased interstitial markings, stable. No worris ome pulmonary nodules. No pleural effusion or pneumothorax. No acute infiltrates. HILAR AND MEDIASTINAL STRUCTURES: No identified masses or abnormal nodes. HEART AND VASCULAR STRUCTURES: No aneurysm or dissection. No central pulmonary emboli. No pericardi al effusion. HARDWARE: Right-sided permanent central line tip superior vena cava THYROID AND OTHER SOFT TISSUES: No masses. No adenopathy. BONES: No significant finding. OTHER: No other significant finding. ABDOMEN AND PELVIS: LIVER: Normal size. No masses. No dilated ducts. SPLEEN: 14 cm in greatest craniocaudad length, stable. PANCREAS: A 7 cm transverse by 4.7 cm AP x 5.3 cm craniocaudad pancreatic head mass is present, large r than on previous exam (was 6 x 4 x 5 cm on 12/23/2017). 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 No a scites. Atrophy of the pancreatic tail with dilated pancreatic duct on axial image 26, stable. GALLBLADDER: No identified stones by CT criteria. No inflammatory changes to suggest cholecystitis. ADRENAL GLANDS: No significant masses or asymmetry. RIGHT KIDNEY AND URETER: No solid masses. No significant calcification. No hydronephrosis or hydroure ter. LEFT KIDNEY AND URETER: No solid masses. No significant calcification. No hydronephrosis or hydrouret er. AORTA AND VESSELS: No aneurysm. No dissection. Renal arteries, SMA, celiac without stenosis. RETROPERITONEUM: No retroperitoneal adenopathy, hemorrhage or masses. BOWEL AND PERITONEAL CAVITY: Old right hemicolectomy. No bowel obstruction. No free intraperitoneal air or fluid. APPENDIX: Surgically absent ABDOMINAL WALL: No masses. No hernias. PELVIS: No mass or free fluid. Normal bladder. BONES: No significant or acute findings. OTHER: No other significant finding. IMPRESSION: Increase size of pancreatic head mass compared to prior study No widespread metastatic disease to the chest abdomen or pelvis TECHNICAL DOCUMENTATION: JOB ID: [id number] Quality ID # 436: Final reports with documentation of one or more dose reduction techniques (e.g., Au tomated exposure control, adjustment of the mA and/or kV according to patient size, use of iterative reconstruction technique) 2010 [employer]- All Rights Reserved Reading location - IP/workstation name: [email or web address]
== END ==
LOC: RAD 08:23
PROVIDERS: ATTEND Physician Assistant Medical
DX: C25.1 Malignant neoplasm of body of pancreas (principal); J84.10 Pulmonary fibrosis, unspecified
CPT/HCPCS: 71260; 74177

== ENCOUNTER 2018-03-22 11:57 | Outpatient (CLI) | payer MEDICARE, OTHER ==
[2018-03-22 12:34] VITALS: BP 137/65
[2018-03-22] MEDS ORDERED: NORMAL SALINE 1000 ML 1,000 ML IV PRN (12:35)
== END 2018-03-22 14:23 | disposition home or self-care (01) ==
LOC: II 11:57 → 3N 12:01 → II 14:23
PROVIDERS: ATTEND Internal Medicine
PROC: 3E0437Z Introduction of Electrolytic and Water Balance Substance into Central Vein, Percutaneous Approach (ICD-10-PCS; principal; 2018-03-22)
DX: Z76.89 Persons encountering health services in other specified circumstances (principal)

== ENCOUNTER 2018-04-25 18:03 | Emergency (ER) | payer MEDICARE, OTHER ==
--- NOTE | 2018-04-25 18:31 | ER Document Report ---
ED Cardiac - General Chief Complaint: Epigastric Pain Stated Complaint: CHEST PAIN Time Seen by Provider: 04/25/18 18:30 Mode of Arrival: Ambulatory Information source: Patient Notes: Patient has a history of pancreatic cancer and he is on chemotherapy. He presented with epigastric pain. Denies chest pain. TRAVEL OUTSIDE OF THE [place] IN LAST 30 DAYS: No - HPI Patient complains to provider of: denies: Chest pain, Shortness of breath Is the pain a: Chronic problem Chest pain location: Other - Epigastric Quality of pain: Constant, Severe Chest pain radiation location: None - Epigastric Severity now: Severe Severity at worst: Severe Pain level currently: 5 Chest pain precipitating factors: At Rest Positive cardiac history: No Associated symptoms: Abdominal pain Exacerbated by: Denies Relieved by: Nothing Similar symptoms previously: No Recently seen / treated by doctor: No - Related Data Allergies/Adverse Reactions: promethazine [From Phenergan] Allergy (Verified 04/25/18 18:16) Past Medical History - Social History Smoking Status: Unknown if Ever Smoked Family History: Reviewed & Not Pertinent - Past Medical History Cardiac Medical History: Denies: Hx Coronary Artery Disease, Hx Heart Attack, Hx Hypertension Pulmonary Medical History: Reports: Hx Asthma - AT A YOUNGER AGE, NO ISSUES LATELY Denies: Hx Bronchitis, Hx COPD, Hx Pneumonia Neurological Medical History: Denies: Hx Cerebrovascular Accident, Hx Seizures Renal/ Medical History: Denies: Hx Peritoneal Dialysis GI Medical History: Reports: Hx Ulcer - IN PAST BUT HEALED. Denies: Hx Hepatitis, Hx Hiatal Hernia Musculoskeletal Medical History: Reports Hx Arthritis - OSTEO Infectious Medical History: Denies: Hx Hepatitis Past Surgical History: Denies: Hx Open Heart Surgery, Hx Pacemaker - Immunizations Hx Diphtheria, Pertussis, Tetanus Vaccination: Yes Hx Pneumococcal Vaccination: 03/11/16 Review of Systems - Review of Systems Constitutional: No symptoms reported EENT: No symptoms reported Cardiovascular: No symptoms reported Respiratory: No symptoms reported Gastrointestinal: Abdominal pain, Nausea Genitourinary: No symptoms reported Male Genitourinary: No symptoms reported Musculoskeletal: No symptoms reported Skin: No symptoms reported Hematologic/Lymphatic: No symptoms reported Neurological/Psychological: No symptoms reported -: Yes All other systems reviewed and negative Physical Exam - Vital signs Vitals: Temp Pulse Resp BP Pulse Ox 98.5 F 84 20 167/82 H 97 04/25/18 18:20 04/25/18 18:20 04/25/18 18:20 04/25/18 18:20 04/25/18 18:20 Interpretation: Normal - General General appearance: Appears well, Alert - HEENT Head: Normocephalic, Atraumatic Eyes: Normal Pupils: PERRL - Respiratory Respiratory status: No respiratory distress Chest status: Nontender Breath sounds: Normal Chest palpation: Normal - Cardiovascular Rhythm: Regular Heart sounds: Normal auscultation Murmur: No - Abdominal Inspection: Normal Distension: No distension Bowel sounds: Normal Tenderness: Tender - Epigastric tenderness to palpation. Organomegaly: No organomegaly - Back Back: Normal, Nontender - Extremities General upper extremity: Normal inspection, Nontender, Normal color, Normal ROM , Normal temperature General lower extremity: Normal inspection, Nontender, Normal color, Normal ROM , Normal temperature, Normal weight bearing. No: Julianna's sign - Neurological Neuro grossly intact: Yes Cognition: Normal Orientation: AAOx4 Mullens Coma Scale Eye Opening: Spontaneous Mullens Coma Scale Verbal: Oriented Josefa Coma Scale Motor: Obeys Commands Josefa Coma Scale Total: 15 Speech: Normal Motor strength normal: LUE, RUE, LLE, RLE Sensory: Normal - Psychological Associated symptoms: Normal affect, Normal mood - Skin Skin Temperature: Warm Skin Moisture: Dry Skin Color: Normal Course - Vital Signs Vital signs: Temp Pulse Resp BP Pulse Ox 98.5 F 84 14 110/67 95 04/25/18 18:20 04/25/18 18:20 04/25/18 22:00 04/25/18 21:31 04/25/18 22:00 - Laboratory Result Diagrams: 04/25/18 18:34 04/25/18 18:34 Laboratory results interpreted by me: 04/25/18 04/25/18 18:34 18:34 RBC 3.66 L Hgb 11.1 L Hct 32.4 L RDW 17.1 H Plt Count 146 L Lymphocytes % 12.7 L Monocytes % 17.6 H Sodium 133.8 L Chloride 97 L Total Bilirubin 2.6 H Direct Bilirubin 0.6 H - Diagnostic Test Radiology reviewed: Image reviewed, Reports reviewed - EKG Interpretation by Co EKG shows normal: Sinus rhythm Rate: Normal - 86 Rhythm: NSR When compared to previous EKG there are: Previous EKG unavailable Additional EKG results interpreted by me: 04/25/18 18:30 No STEMI. - Transfer of Care Notes: 04/25/18 20:07 Epigastric abdominal pain. History of pancreatic cancer. Discharge - Discharge Clinical Impression: Pancreatic cancer Qualifiers: Pancreatic malignancy location: unspecified Qualified Code(s): C25.9 - Malignant neoplasm of pancreas, unspecified Abdominal pain Qualifiers: Abdominal location: epigastric Qualified Code(s): R10.13 - Epigastric pain Condition: Stable Disposition: HOME, SELF-CARE Instructions: Abdominal Pain ([facility]) Additional Instructions: Please follow-up with your oncologist Dr. Quach tomorrow morning in his clinic. You have indicated that you have OxyContin at home for pain control and you do not need any refills. Please take your pain medicine as prescribed for pain control at home. Return to the emergency room if her condition worsens. Referrals: SAMANTHA PERDUE MD [Primary Care Provider] - Follow up as needed
--- NOTE | 2018-04-25 18:35 | EKG REPORT ---
SEVERITY:- BORDERLINE ECG - SINUS RHYTHM BORDERLINE INFERIOR Q WAVES : Confirmed by: Frank Simon MD 25-Apr-2018 18:34:57
[2018-04-25] MEDS ORDERED: ASPIRIN 81 MG TABLET, CHEWABLE PO ONE (18:46)
[2018-04-25] MEDS ORDERED: HYDROMORPHONE HCL INJ/PF 2 MG/ML AMPULE IV ONE (18:47)
[2018-04-25] MEDS ORDERED: ONDANSETRON HCL INJ/PF 4 MG/2 ML SDV IV ONE (18:48)
[2018-04-25 19:04] LABS: PROTHROMBIN TIME 14.8 SEC (11.4-15.4)
[2018-04-25 19:05] LABS: ABSOLUTE EOSINOPHILS # (AUTO) 0.1 10^3/uL (0.0-0.6); ABSOLUTE LYMPHOCYTES (AUTO) 0.7 10^3/uL (0.5-4.7); ABSOLUTE NEUT (AUTO) 3.7 10^3/uL (1.7-8.2); BASOPHILS % (AUTO) 0.3 % (0-2); EOSINOPHILS % (AUTO) 1.4 % (0-6); HEMATOCRIT 32.4 % (37.9-51.0); HEMOGLOBIN 11.1 g/dL (13.5-17.0); LYMPHOCYTES % (AUTO) 12.7 % (13-45); MEAN CORPUSCULAR HEMOGLOBIN 30.4 pg (27.0-33.4); MEAN CORPUSCULAR HGB CONC 34.3 g/dL (32.0-36.0); MEAN CORPUSCULAR VOLUME 89 fl (80-97); MONOCYTES % (AUTO) 17.6 % (3-13); PARTIAL THROMBOPLASTIN TIME 32.3 SEC (23.5-35.8); PLATELET COUNT 146 10^3/uL (150-450); RED BLOOD COUNT 3.66 10^6/uL (4.35-5.55); RED CELL DISTRIBUTION WIDTH 17.1 % (11.5-14.0); TOTAL CELLS COUNTED % (AUTO) 100 %; WHITE BLOOD COUNT 5.5 10^3/uL (4.0-10.5)
[2018-04-25 19:17] LABS: ALANINE AMINOTRANSFERASE 27 U/L (21-72); ALBUMIN 3.6 g/dL (3.5-5.0); ALKALINE PHOSPHATASE 92 U/L (38-126); ANION GAP 8 (5-19); ASPARTATE AMINO TRANSFERASE 28 U/L (17-59); BILIRUBIN,DIRECT 0.6 mg/dL (0.0-0.4); BILIRUBIN,TOTAL 2.6 mg/dL (0.2-1.3); BLOOD UREA NITROGEN 16 mg/dL (7-20); CALCIUM 9.2 mg/dL (8.4-10.2); CARBON DIOXIDE 29 mmol/L (22-30); CHLORIDE 97 mmol/L (98-107); CREATINE KINASE 62 U/L (55-170); GLUCOSE 107 mg/dL (75-110); LIPASE 32.4 U/L (23-300); POTASSIUM 3.9 mmol/L (3.6-5.0); SODIUM 133.8 mmol/L (137-145); TOTAL PROTEIN 6.9 g/dL (6.3-8.2)
--- NOTE | 2018-04-25 19:23 | RADIOLOGY REPORT (SQ) ---
EXAM DESCRIPTION: CHEST SINGLE VIEW COMPLETED DATE/TIME: 04/25/2018 7:00 pm REASON FOR STUDY: chest pain COMPARISON: None. EXAM PARAMETERS: NUMBER OF VIEWS: One view. TECHNIQUE: Single frontal radiographic view of the chest acquired. RADIATION DOSE: NA LIMITATIONS: None. FINDINGS: LUNGS AND PLEURA: No opacities, masses or pneumothorax. No pleural effusion. MEDIASTINUM AND HILAR STRUCTURES: No masses. Contour normal. HEART AND VASCULAR STRUCTURES: Heart size is borderline. No pulmonary edema. BONES: No acute findings. HARDWARE: Injection port on the right. OTHER: No other significant finding. IMPRESSION: Borderline heart size without pulmonary edema. TECHNICAL DOCUMENTATION: JOB ID: [id number] [employer]- All Rights Reserved Reading location - IP/workstation name: [email or web address]
[2018-04-25 19:36] LABS: CREATINE KINASE MB 1.34 ng/mL (<4.55)
[2018-04-25 19:39] LABS: TROPONIN I < 0.012 ng/mL
[2018-04-25 20:55] LABS: APPEARANCE,URINE CLEAR; BILIRUBIN,URINE NEGATIVE (NEGATIVE); COLOR,URINE YELLOW; GLUCOSE, URINE NEGATIVE (NEGATIVE); KETONES,URINE NEGATIVE (NEGATIVE); LEUKOCYTE ESTERASE,URINE NEGATIVE (NEGATIVE); NITRITE,URINE NEGATIVE (NEGATIVE); PROTEIN,URINE NEGATIVE (NEGATIVE); URINE SPECIFIC GRAVITY 1.009; UROBILINOGEN,URINE NEGATIVE mg/dL (<2.0)
--- NOTE | 2018-04-25 20:56 | RADIOLOGY REPORT (SQ) ---
EXAM DESCRIPTION: CT ABD/PELVIS WITH IV ONLY COMPLETED DATE/TIME: 04/25/2018 8:33 pm REASON FOR STUDY: Epigastric pain, h/o Pancreatic cancer. COMPARISON: 02/16/2018 TECHNIQUE: CT scan of the abdomen and pelvis performed using helical scanning technique with dynamic intravenous contrast injection. No oral contrast. Images reviewed with lung, soft tissue, and bone windows. Reconstructed coronal and sagittal MPR images reviewed. Delayed images for evaluation of the urinary system also acquired. All images stored on PACS. All CT scanners at this facility use dose modulation, iterative reconstruction, and/or weight based d osing when appropriate to reduce radiation dose to as low as reasonably achievable (ALARA). [facility]: Dose Right [facility]: CareDose [facility]: Dose Right [facility]: Teradose 4D [facility]: [employer] CONTRAST TYPE AND DOSE: contrast/concentration: Isovue 350.00 mg/ml; Total Contrast Delivered: 90.0 ml; Total Saline Delivered: 45.0 ml RENAL FUNCTION: BUN 16 creatinine 0.8 RADIATION DOSE: CT Rad equipment meets quality standard of care and radiation dose reduction techniq ues were employed. CTDIvol: 8.9 - 12.6 mGy. DLP: 1108 mGy-cm.. LIMITATIONS: None. FINDINGS: LOWER CHEST: Subsegmental atelectasis, chronic interstitial changes. LIVER: Normal size. No masses. No dilated ducts. SPLEEN: Enlarged. PANCREAS: Large heterogeneous mass in the head of the pancreas with atrophy of the body and tail of t he pancreas. The pancreatic mass is larger, now measuring 78.5 x 58.2 S mm on image 24 compared with 71.5 x 46.9 mm on comparable image on the prior study. GALLBLADDER: No identified stones by CT criteria. No inflammatory changes to suggest cholecystitis. ADRENAL GLANDS: No significant masses or asymmetry. RIGHT KIDNEY AND URETER: No solid masses. No significant calcifications. No hydronephrosis or hyd roureter. LEFT KIDNEY AND URETER: No solid masses. No significant calcifications. No hydronephrosis or hydr oureter. AORTA AND VESSELS: No aneurysm. No dissection. Renal arteries, SMA, celiac without stenosis. RETROPERITONEUM: No retroperitoneal adenopathy, hemorrhage or masses. BOWEL AND PERITONEAL CAVITY: Radiopaque suture is present in the bowel just to the right of the midli ne at the level of the umbilicus. No bowel mass is appreciated. APPENDIX: Not identified. PELVIS: No mass. No free fluid. Normal bladder. ABDOMINAL WALL: No masses. No hernias. BONES: No significant or acute findings. OTHER: No other significant finding. IMPRESSION: There is further increase in size in the mass in the head of the pancreas. Splenomegaly . No new or acute findings are seen in the abdomen or pelvis. TECHNICAL DOCUMENTATION: JOB ID: [id number] Quality ID # [id number]: Final reports with documentation of one or more dose reduction techniques (e.g., Au tomated exposure control, adjustment of the mA and/or kV according to patient size, use of iterative reconstruction technique) 2010 [employer]- All Rights Reserved Reading location - IP/workstation name: [email or web address]
[2018-04-25 23:34] VITALS: BP 123/66
== END 2018-04-25 23:45 | disposition home or self-care (01) ==
LOC: ER 18:03
DX: R10.13 Epigastric pain (principal); C25.9 Malignant neoplasm of pancreas, unspecified; Z79.899 Other long term (current) drug therapy; R11.0 Nausea; Z88.8 Allergy status to other drugs, medicaments and biological substances
CPT/HCPCS: 93005; 99285; 96374; 96375; 36415; 82553; 82550; 83690; 85025; 85610; 85730; 80053; 81001; 84484; 71045; 74177; 93010; A9270; J1170; J2405

== ENCOUNTER 2018-04-28 04:03 | Emergency (ER) | payer MEDICARE, OTHER ==
[2018-04-28] MEDS ORDERED: HYDROMORPHONE HCL INJ/PF 2 MG/ML AMPULE IV ONE (04:35)
[2018-04-28] MEDS ORDERED: METOCLOPRAMIDE HCL INJ/PF 10 MG/2 ML SDV IV ONE (04:35)
[2018-04-28] MEDS ORDERED: NORMAL SALINE 1000 ML 1,000 ML IV ONE (04:35)
--- NOTE | 2018-04-28 04:38 | ER Document Report ---
ED GI/ - General Chief Complaint: Vomiting Stated Complaint: VOMITING Time Seen by Provider: 04/28/18 04:29 Mode of Arrival: Ambulatory Information source: Patient TRAVEL OUTSIDE OF THE [place] IN LAST 30 DAYS: No - HPI Patient complains to provider of: Abdominal pain, Diarrhea, Vomiting Onset: Other - 3-4 days Timing/Duration: Gradual, Persistent Quality of pain: Achy, Cramping Severity at maximum: Moderate Severity in ED: Moderate Pain Level: 3 Location: Other - Diffuse Associated symptoms: Diarrhea, Nausea, Vomiting Exacerbated by: Denies Relieved by: Denies Similar symptoms previously: Yes Recently seen / treated by doctor: Yes Notes: 04/28/18 04:36 Patient is an 82-year-old male with a history of pancreatic cancer, currently receiving chemotherapy for the past year, last treatment was on Tuesday of this week, he presents to the ER today complaining of diffuse crampy abdominal pain with vomiting and diarrhea, was seen in this department 2 days ago for similar symptoms, was feeling much better but symptoms started up again, he does admit that he was taking and at home [id number] laxative to help with constipation that was likely caused by his pain medication and Zofran, he denies any fevers, he does report dysuria which she states is chronic in nature - Related Data Allergies/Adverse Reactions: promethazine [From Phenergan] Allergy (Verified 04/25/18 18:16) Past Medical History - General Information source: Patient - Social History Smoking Status: Unknown if Ever Smoked Family History: Reviewed & Not Pertinent - Past Medical History Cardiac Medical History: Denies: Hx Coronary Artery Disease, Hx Heart Attack, Hx Hypertension Pulmonary Medical History: Reports: Hx Asthma - AT A YOUNGER AGE, NO ISSUES LATELY Denies: Hx Bronchitis, Hx COPD, Hx Pneumonia Neurological Medical History: Denies: Hx Cerebrovascular Accident, Hx Seizures Renal/ Medical History: Denies: Hx Peritoneal Dialysis GI Medical History: Reports: Hx Ulcer - IN PAST BUT HEALED. Denies: Hx Hepatitis, Hx Hiatal Hernia Musculoskeletal Medical History: Reports Hx Arthritis - OSTEO Infectious Medical History: Denies: Hx Hepatitis Past Surgical History: Denies: Hx Open Heart Surgery, Hx Pacemaker - Immunizations Hx Diphtheria, Pertussis, Tetanus Vaccination: Yes Hx Pneumococcal Vaccination: 03/11/16 Review of Systems - Review of Systems Constitutional: No symptoms reported EENT: No symptoms reported Cardiovascular: No symptoms reported Respiratory: No symptoms reported Gastrointestinal: See HPI Genitourinary: No symptoms reported Male Genitourinary: No symptoms reported Musculoskeletal: No symptoms reported Skin: No symptoms reported Hematologic/Lymphatic: No symptoms reported Neurological/Psychological: No symptoms reported -: Yes All other systems reviewed and negative Physical Exam - Vital signs Vitals: Temp Pulse Resp BP Pulse Ox 97.5 F 59 L 20 152/79 H 100 04/28/18 04:04 04/28/18 04:04 04/28/18 04:04 04/28/18 04:04 04/28/18 04:04 Interpretation: Normal - General General appearance: Appears well, Alert - HEENT Head: Normocephalic, Atraumatic Eyes: Normal Pupils: PERRL - Respiratory Respiratory status: No respiratory distress Chest status: Nontender Breath sounds: Normal Chest palpation: Normal - Cardiovascular Rhythm: Regular Heart sounds: Normal auscultation Murmur: No - Abdominal Inspection: Normal Distension: No distension Bowel sounds: Normal Tenderness: Tender - Mild diffuse Organomegaly: No organomegaly - Back Back: Normal, Nontender - Extremities General upper extremity: Normal inspection, Nontender, Normal color, Normal ROM , Normal temperature General lower extremity: Normal inspection, Nontender, Normal color, Normal ROM , Normal temperature, Normal weight bearing. No: Julianna's sign - Neurological Neuro grossly intact: Yes Cognition: Normal Orientation: AAOx4 Josefa Coma Scale Eye Opening: Spontaneous Milaca Coma Scale Verbal: Oriented Mil[place] Coma Scale Motor: Obeys Commands Josefa Coma Scale Total: 15 Speech: Normal Motor strength normal: LUE, RUE, LLE, RLE Sensory: Normal - Psychological Associated symptoms: Normal affect, Normal mood - Skin Skin Temperature: Warm Skin Moisture: Dry Skin Color: Normal Course - Re-evaluation Re-evalutation: 04/28/18 05:28 Patient reevaluated, vital signs stable, he reports mild improvement of symptoms , requesting a drink of water, patient was taken a cup of water to sip on 04/28/18 05:49 Patient resting comfortably with stable vital signs, after sipping on water he states that he feels more nausea dated, additional nausea medication has been ordered 04/28/18 06:18 Patient continues to rest comfortably, no vomiting while in the emergency room, labs are similar to previous labs with the exception of elevation of the total bilirubin at 4.2, however direct bilirubin is only 0.8, patient vital signs have been stable, an attempt was made to call patient's oncologist, Dr. Webber , ingot car operator left a message for him to call back just to inform him that patient was here and will be discharged home, patient will get prescriptions for both Reglan and Phenergan for nausea for home use, advised to follow-up with his oncologist or return if symptoms worsen, patient and at bedside acknowledge understanding and agreement with this plan 04/28/18 06:31 Patient was discussed with Dr. Webber, who is in agreement with discharge home - Vital Signs Vital signs: Temp Pulse Resp BP Pulse Ox 97.5 F 59 L 20 152/79 H 100 04/28/18 04:04 04/28/18 04:04 04/28/18 04:04 04/28/18 04:04 04/28/18 04:45 - Laboratory Result Diagrams: 04/28/18 05:05 04/28/18 05:05 Laboratory results interpreted by me: 04/28/18 04/28/18 05:05 05:05 RBC 3.48 L Hgb 10.5 L Hct 30.9 L RDW 16.9 H Plt Count 138 L Seg Neutrophils % 89.1 H Lymphocytes % 7.0 L Monocytes % 2.0 L Sodium 135.4 L Total Bilirubin 4.2 H Direct Bilirubin 0.8 H Albumin 3.3 L Lipase 16.8 L - EKG Interpretation by Ut EKG shows normal: Sinus rhythm Rate: Normal Rhythm: NSR Discharge - Discharge Clinical Impression: Nausea and vomiting Qualifiers: Vomiting type: unspecified Vomiting Intractability: non-intractable Qualified Code(s): R11.2 - Nausea with vomiting, unspecified Diarrhea Qualifiers: Diarrhea type: unspecified type Qualified Code(s): R19.7 - Diarrhea, unspecified Condition: Stable Disposition: HOME, SELF-CARE Instructions: Antinausea Medication ([facility]), Diarrhea, Nonspecific ([facility]), Intravenous (IV) Fluids ([facility]), Vomiting ([facility]) Additional Instructions: Follow up with your primary care provider in one to 2 days. Return to the emergency room immediately if symptoms worsen or any additional concerns. Prescriptions: Metoclopramide HCl [Reglan 10 mg Tablet] 1 - 2 tab PO ASDIR PRN #25 tablet PRN Reason: Promethazine HCl [Phenergan 25 mg Tablet] 25 - 50 mg PO ASDIR PRN #30 tablet PRN Reason: Referrals: SAMANTHA PERDUE MD [Primary Care Provider] - Follow up as needed
[2018-04-28 05:15] LABS: ABSOLUTE EOSINOPHILS # (AUTO) 0.1 10^3/uL (0.0-0.6); ABSOLUTE LYMPHOCYTES (AUTO) 0.5 10^3/uL (0.5-4.7); ABSOLUTE MONOCYTES (AUTO) 0.1 10^3/uL (0.1-1.4); ABSOLUTE NEUT (AUTO) 5.8 10^3/uL (1.7-8.2); BASOPHILS % (AUTO) 0.4 % (0-2); EOSINOPHILS % (AUTO) 1.5 % (0-6); HEMATOCRIT 30.9 % (37.9-51.0); HEMOGLOBIN 10.5 g/dL (13.5-17.0); MEAN CORPUSCULAR HEMOGLOBIN 30.1 pg (27.0-33.4); MEAN CORPUSCULAR HGB CONC 33.8 g/dL (32.0-36.0); MEAN CORPUSCULAR VOLUME 89 fl (80-97); PLATELET COUNT 138 10^3/uL (150-450); RED BLOOD COUNT 3.48 10^6/uL (4.35-5.55); RED CELL DISTRIBUTION WIDTH 16.9 % (11.5-14.0); SEGMENTED NEUTROPHILS % (AUTO) 89.1 % (42-78); TOTAL CELLS COUNTED % (AUTO) 100 %; WHITE BLOOD COUNT 6.5 10^3/uL (4.0-10.5)
[2018-04-28 05:33] LABS: ALANINE AMINOTRANSFERASE 25 U/L (21-72); ALBUMIN 3.3 g/dL (3.5-5.0); ALKALINE PHOSPHATASE 112 U/L (38-126); ANION GAP 7 (5-19); ASPARTATE AMINO TRANSFERASE 29 U/L (17-59); BILIRUBIN,DIRECT 0.8 mg/dL (0.0-0.4); BILIRUBIN,TOTAL 4.2 mg/dL (0.2-1.3); BLOOD UREA NITROGEN 19 mg/dL (7-20); CARBON DIOXIDE 28 mmol/L (22-30); CHLORIDE 100 mmol/L (98-107); GLUCOSE 110 mg/dL (75-110); LIPASE 16.8 U/L (23-300); POTASSIUM 4.2 mmol/L (3.6-5.0); SODIUM 135.4 mmol/L (137-145); TOTAL PROTEIN 6.4 g/dL (6.3-8.2)
[2018-04-28] MEDS ORDERED: ONDANSETRON HCL INJ/PF 4 MG/2 ML SDV IV ONE (05:44)
[2018-04-28 06:54] VITALS: BP 131/67
--- NOTE | 2018-04-28 08:07 | EKG REPORT ---
SEVERITY:- NORMAL ECG - SINUS RHYTHM : Confirmed by: Frank Simon MD 28-Apr-2018 08:07:05
== END 2018-04-28 06:54 | disposition home or self-care (01) ==
LOC: ER 04:03
DX: R11.2 Nausea with vomiting, unspecified (principal); R19.7 Diarrhea, unspecified; R10.84 Generalized abdominal pain; C25.9 Malignant neoplasm of pancreas, unspecified; Z79.899 Other long term (current) drug therapy; R30.0 Dysuria; J45.909 Unspecified asthma, uncomplicated; Z88.8 Allergy status to other drugs, medicaments and biological substances
CPT/HCPCS: 93005; 99284; 96361; 96374; 96375; 36415; 83690; 85025; 80053; 93010; J2765; J1170; J2405; J7030

== ENCOUNTER 2018-05-07 09:43 | Inpatient (IN) | payer MEDICARE, OTHER ==
[2018-05-07] MEDS ORDERED: RINGERS SOLUTION,LACTATED 1,000 ML IV ONE (10:01)
[2018-05-07] MEDS ORDERED: ONDANSETRON HCL INJ/PF 4 MG/2 ML SDV IV ONE (10:02)
--- NOTE | 2018-05-07 10:04 | ER Document Report ---
ED Medical Screen (RME) - General Chief Complaint: Nausea/Vomiting Stated Complaint: VOMITING Time Seen by Provider: 05/07/18 09:54 Notes: Patient is a 82-year-old male with pancreatic cancer that presents to the emergency department for chief complaint of nausea and vomiting. ROS: Unless otherwise stated in this report the patient's positive and negative responses for review of systems for constitutional, eyes, ENT, cardiovascular, respiratory, gastrointestinal, neurological, genitourinary, musculoskeletal, and integumentary systems and related systems to the presenting problem are either as stated in the HPI or were not pertinent or were negative for the symptoms and/or complaints related to the presenting medical problem. PHYSICAL EXAMINATION: Vital signs reviewed. GENERAL: Elderly, frail-appearing male and in no acute distress. HEAD: Atraumatic, normocephalic. EYES: Pupils equal round extraocular movements intact, conjunctiva are normal. ENT: Nares patent NECK: Normal range of motion CV: Heart regular rate and rhythm LUNGS: No respiratory distress Musculoskeletal: Normal range of motion NEUROLOGICAL: Normal speech PSYCH: Normal mood, normal affect. MDM: Patient seen and examined for rapid initial assessment. Vital signs reviewed. A comprehensive ED assessment and evaluation of the patient, analysis of test results and completion of the medical decision making process will be conducted by additional ED providers. *Note is created using voice recognition software and may contain spelling, syntax or grammatical errors. TRAVEL OUTSIDE OF THE [place] IN LAST 30 DAYS: No - Related Data Allergies/Adverse Reactions: promethazine [From Phenergan] Allergy (Verified 05/07/18 09:46) Past Medical History - Past Medical History Cardiac Medical History: Denies: Hx Coronary Artery Disease, Hx Heart Attack, Hx Hypertension Pulmonary Medical History: Reports: Hx Asthma - AT A YOUNGER AGE, NO ISSUES LATELY Denies: Hx Bronchitis, Hx COPD, Hx Pneumonia Neurological Medical History: Denies: Hx Cerebrovascular Accident, Hx Seizures Renal/ Medical History: Denies: Hx Peritoneal Dialysis GI Medical History: Reports: Hx Ulcer - IN PAST BUT HEALED. Denies: Hx Hepatitis, Hx Hiatal Hernia Musculoskeltal Medical History: Reports Hx Arthritis - OSTEO Infectious Medical History: Denies: Hx Hepatitis Past Surgical History: Denies: Hx Open Heart Surgery, Hx Pacemaker - Immunizations Hx Diphtheria, Pertussis, Tetanus Vaccination: Yes History of Influenza Vaccine for 04/2017 - 09/2017 Season: Yes Physical Exam - Vital signs Vitals: Temp Pulse Resp BP Pulse Ox 97.7 F 97 18 137/72 H 99 05/07/18 09:51 05/07/18 09:51 05/07/18 09:51 05/07/18 09:51 05/07/18 09:51 Course - Vital Signs Vital signs: Temp Pulse Resp BP Pulse Ox 97.7 F 97 18 137/72 H 99 05/07/18 09:51 05/07/18 09:51 05/07/18 09:51 05/07/18 09:51 05/07/18 09:51 Doctor's Discharge - Discharge Referrals: VICTORIA MACHADO MD [Primary Care Provider] - Follow up as needed
[2018-05-07] MEDS ORDERED: NORMAL SALINE 1000 ML 1,000 ML IV ONE (10:20)
--- NOTE | 2018-05-07 10:35 | ER Document Report ---
ED GI/ - General Mode of Arrival: Ambulatory Information source: Patient TRAVEL OUTSIDE OF THE [place] IN LAST 30 DAYS: No <EB MANUEL - Last Filed: 05/07/18 13:37> <GOLDEN SMALL - Last Filed: 05/07/18 14:52> - General Chief Complaint: Nausea/Vomiting Stated Complaint: VOMITING Time Seen by Provider: 05/07/18 09:54 Notes: 82 year old male with pancreatic cancer that presents to the emergency department today with complaints of vomiting and diarrhea since a new chemotherapy drug was started on Tuesday. Patient states he had a pump placed on Tuesday and it administering the drug through Tuesday when he had the pump removed. Patient states he has not eaten in a week secondary to not feeling hungry and being nauseated. Patient states he has also been having diarrhea. ( EB MANUEL) The patient was seen here on 04/28/2018 received IV fluids, and Reglan and Phenergan. He was treated in the office 2 days ago with IV fluids and Zofran. He continues to have the nausea vomiting and diarrhea. I did discuss his case with Dr. Islas, she has me to get the hospitalist to admit the patient to try to help manage his nausea and vomiting that has not been controlled with outpatient medications. (GOLDEN SMALL) - Related Data Allergies/Adverse Reactions: promethazine [From Phenergan] Allergy (Verified 05/07/18 09:46) Past Medical History - General Information source: Patient - Social History Smoking Status: Former Smoker Cigarette use (# per day): No Frequency of alcohol use: None Drug Abuse: None Lives with: Family Family History: Reviewed & Not Pertinent Patient has suicidal ideation: No Patient has homicidal ideation: No Pulmonary Medical History: Reports: Hx Asthma - AT A YOUNGER AGE, NO ISSUES LATELY GI Medical History: Reports: Hx Ulcer - IN PAST BUT HEALED Musculoskeletal Medical History: Reports Hx Arthritis - OSTEO - Immunizations Hx Diphtheria, Pertussis, Tetanus Vaccination: Yes Hx Pneumococcal Vaccination: 03/11/16 <EB MANUEL - Last Filed: 05/07/18 13:37> Review of Systems - Review of Systems Constitutional: No symptoms reported EENT: No symptoms reported Cardiovascular: No symptoms reported Respiratory: No symptoms reported Gastrointestinal: See HPI, Diarrhea, Vomiting Genitourinary: No symptoms reported Male Genitourinary: No symptoms reported Musculoskeletal: No symptoms reported Skin: No symptoms reported Hematologic/Lymphatic: No symptoms reported Neurological/Psychological: No symptoms reported -: Yes All other systems reviewed and negative <KALEBEB - Last Filed: 05/07/18 13:37> Physical Exam <EB MANUEL - Last Filed: 05/07/18 13:37> <GOLDEN SMALL - Last Filed: 05/07/18 14:52> - Vital signs Vitals: Temp Pulse Resp BP Pulse Ox 97.7 F 97 18 137/72 H 99 05/07/18 09:51 05/07/18 09:51 05/07/18 09:51 05/07/18 09:51 05/07/18 09:51 - Notes Notes: Physical Exam: General: Alert, appears well. HEENT: Normocephalic. Atraumatic. PERRL. Extraocular movements intact. Wearing mask, does not complain of oral ulcers. Neck: Supple. Non-tender. Respiratory: No respiratory distress. Clear and equal breath sounds bilaterally. Cardiovascular: Regular rate and rhythm. Abdominal: Normal Inspection. Soft, Non-tender. No distension. Normal Bowel Sounds. Back: Non-tender. No deformity or step off. Extremities: Moves all four extremities. Upper extremities: Normal inspection. Normal ROM. Lower extremities: Normal inspection. No edema. Normal ROM. Neurological: Normal cognition. AAOx4. Normal speech. Psychological: Normal affect. Normal Mood. Skin: Warm. Dry. Normal color. (EB MANUEL) Course - Laboratory Result Diagrams: 05/07/18 11:00 05/07/18 11:00 <EB MANUEL - Last Filed: 05/07/18 13:37> - Laboratory Result Diagrams: 05/07/18 11:00 05/07/18 11:00 - EKG Interpretation by Me EKG shows normal: Sinus rhythm, [place], Intervals, QRS Complexes, ST-T Waves Rate: Normal - 80 Rhythm: NSR When compared to previous EKG there are: No significant change - Consults Dr. Chaidez Time consulted: 14:45 Consulted provider: will come to ER <GOLDEN SMALL - Last Filed: 05/07/18 14:52> - Vital Signs Vital signs: Temp Pulse Resp BP Pulse Ox 97.6 F 97 19 147/68 H 97 05/07/18 14:28 05/07/18 09:51 05/07/18 14:01 05/07/18 14:01 05/07/18 14:01 - Laboratory Laboratory results interpreted by me: 05/07/18 05/07/18 05/07/18 11:00 11:00 11:00 RBC 2.88 L Hgb 8.9 L Hct 26.1 L RDW 17.3 H Seg Neutrophils % 83.9 H Lymphocytes % 9.4 L Absolute Lymphocytes 0.4 L Potassium 3.5 L BUN 25 H Calcium 8.3 L Total Bilirubin 2.9 H Direct Bilirubin 0.7 H Total Protein 5.5 L Albumin 2.8 L Urine Protein 30 H Urine Ketones 20 H Ur Leukocyte Esterase LARGE H Discharge <EB MANUEL - Last Filed: 05/07/18 13:37> - Discharge Admitting Provider: Hospitalist Unit Admitted: Medical Floor <GOLDEN SMALL - Last Filed: 05/07/18 14:52> - Discharge Clinical Impression: Nausea, vomiting and diarrhea Pancreatic cancer Qualifiers: Pancreatic malignancy location: unspecified Qualified Code(s): C25.9 - Malignant neoplasm of pancreas, unspecified Anemia Qualifiers: Anemia type: unspecified type Qualified Code(s): D64.9 - Anemia, unspecified Urinary tract infection Qualifiers: Urinary tract infection type: site unspecified Hematuria presence: without hematuria Qualified Code(s): N39.0 - Urinary tract infection, site not specified Condition: Stable Disposition: ADMITTED INPATIENT Referrals: VICTORIA MACHADO MD [ACTIVE STAFF] - Follow up as needed Scribe Attestation: 05/07/18 10:53 I personally performed the services described in the documentation, reviewed and edited the documentation which was dictated to the scribe in my presence, and it accurately records my words and actions. (GOLDEN SMALL) Scribe Documentation - Scribe Written by Scribe:: Sakshi Nieto, 05/07/2018 1217 acting as scribe for :: Syd <EB MANUEL - Last Filed: 05/07/18 13:37>
[2018-05-07 11:21] LABS: ABSOLUTE EOSINOPHILS # (AUTO) 0.1 10^3/uL (0.0-0.6); ABSOLUTE LYMPHOCYTES (AUTO) 0.4 10^3/uL (0.5-4.7); ABSOLUTE MONOCYTES (AUTO) 0.2 10^3/uL (0.1-1.4); ABSOLUTE NEUT (AUTO) 3.5 10^3/uL (1.7-8.2); BASOPHILS % (AUTO) 0.4 % (0-2); HEMATOCRIT 26.1 % (37.9-51.0); HEMOGLOBIN 8.9 g/dL (13.5-17.0); LYMPHOCYTES % (AUTO) 9.4 % (13-45); MEAN CORPUSCULAR HEMOGLOBIN 30.8 pg (27.0-33.4); MEAN CORPUSCULAR VOLUME 91 fl (80-97); MONOCYTES % (AUTO) 4.3 % (3-13); PLATELET COUNT 192 10^3/uL (150-450); RED BLOOD COUNT 2.88 10^6/uL (4.35-5.55); RED CELL DISTRIBUTION WIDTH 17.3 % (11.5-14.0); SEGMENTED NEUTROPHILS % (AUTO) 83.9 % (42-78); TOTAL CELLS COUNTED % (AUTO) 100 %; WHITE BLOOD COUNT 4.2 10^3/uL (4.0-10.5)
[2018-05-07 11:24] LABS: APPEARANCE,URINE CLOUDY; BILIRUBIN,URINE NEGATIVE (NEGATIVE); COLOR,URINE AMBER; GLUCOSE, URINE NEGATIVE (NEGATIVE); KETONES,URINE 20 mg/dL (NEGATIVE); LEUKOCYTE ESTERASE,URINE LARGE (NEGATIVE); NITRITE,URINE NEGATIVE (NEGATIVE); PROTEIN,URINE 30 mg/dL (NEGATIVE); URINE SPECIFIC GRAVITY 1.024; UROBILINOGEN,URINE NEGATIVE mg/dL (<2.0)
[2018-05-07 11:45] LABS: ALANINE AMINOTRANSFERASE 43 U/L (21-72); ALBUMIN 2.8 g/dL (3.5-5.0); ALKALINE PHOSPHATASE 117 U/L (38-126); ANION GAP 10 (5-19); ASPARTATE AMINO TRANSFERASE 38 U/L (17-59); BILIRUBIN,DIRECT 0.7 mg/dL (0.0-0.4); BILIRUBIN,TOTAL 2.9 mg/dL (0.2-1.3); BLOOD UREA NITROGEN 25 mg/dL (7-20); CALCIUM 8.3 mg/dL (8.4-10.2); CARBON DIOXIDE 23 mmol/L (22-30); CHLORIDE 106 mmol/L (98-107); GLUCOSE 97 mg/dL (75-110); LIPASE 38.1 U/L (23-300); PHOSPHORUS 3.2 mg/dL (2.5-4.5); POTASSIUM 3.5 mmol/L (3.6-5.0); SODIUM 139.4 mmol/L (137-145); TOTAL PROTEIN 5.5 g/dL (6.3-8.2)
[2018-05-07] MEDS ORDERED: DEXTROSE 5%-LACTATED RINGERS 1,000 ML IV ONE (12:24)
[2018-05-07] MEDS ORDERED: METOCLOPRAMIDE HCL INJ/PF 10 MG/2 ML SDV IV ONE (13:21)
[2018-05-07] MEDS ORDERED: CEFTRIAXONE 1 GM/D5W RTU 1 GM/50 ML RTUPB IV ONE (14:13)
[2018-05-07] MEDS ORDERED: POTASSIUM CHLORIDE 10 MEQ CAPSULE.ER PO ONE (16:00)
--- NOTE | 2018-05-07 16:07 | EKG REPORT ---
SEVERITY:- BORDERLINE ECG - SINUS RHYTHM BORDERLINE INFERIOR Q WAVES : Confirmed by: Cecil Davalos 07-May-2018 16:07:07
[2018-05-07] MEDS ORDERED: POTASSI CL 20 MEQ/50 ML RIDER 20 MEQ/50 ML RTUPB IV ONE (17:23)
[2018-05-07] MEDS: HYDROMORPHONE HCL INJ/PF 2 MG/ML AMPULE IV PRN (17:54)
[2018-05-07] MEDS: NORMAL SALINE 1000 ML 1,000 ML IV PRN (17:55)
[2018-05-07] MEDS: OXYCODONE HCL SR 10 MG TABLET PO SCH (18:39)
--- NOTE | 2018-05-07 18:46 | PDOC H&P ---
History of Present Illness Admission Date/PCP: SAMANTHA PERDUE MD Patient complains of: nausea, vomiting, diarrhea History of Present Illness: PRAMOD GILL JR is a 82 year old male with a past medical history of stage 4 pancreatic cancer (recently increased in size), history of colon cancer with prior resection and chemotherapy in 1998, hypothyroidism, and history of peptic ulcer disease who presented with nausea, vomiting and diarrhea after being recently started on Irinotecan. Patient was diagnosed with pancreatic CA on April 2017. He was tried on Tarceva and 2 other chemo drugs before for his pancreatic CA and was recently started on Irinotecan infusion on Tuesday. He then developed loose, non bloody stools (>6x/day) associated with multiple episodes of vomiting and dry heaves on Tuesday (>10x/day) which persisted this morning. He says he has not also been eating due to poor appetite and nausea/vomiting. He has chronic abdominal paimn from his pancreatic CA and he says it is at his baseline and the abdominal pain has not worsened. He denies any fever or chills. Denies history of C diff colitis or recent antibiotic use. Past Medical History Cardiac Medical History: Denies: Coronary Artery Disease, Myocardial Infarction, Hypertension Pulmonary Medical History: Reports: Asthma - AT A YOUNGER AGE, NO ISSUES LATELY Denies: Bronchitis, Chronic Obstructive Pulmonary Disease (COPD), Pneumonia Neurological Medical History: Denies: Seizures GI Medical History: Denies: Hepatitis, Hiatal Hernia Musculoskeltal Medical History: Reports: Arthritis - OSTEO Hematology: Denies: Anemia, Sickle Cell Disease Past Surgical History Past Surgical History: Denies: Pacemaker Social History Lives with: Family Smoking Status: Former Smoker Family History Family History: Reviewed & Not Pertinent Parental Family History Reviewed: Yes - no premature CAD Children Family History Reviewed: No Sibling(s) Family History Reviewed.: No Medication/Allergy Home Medications: Clindamycin Phosphate 1 applic TP BID 05/07/18 Erlotinib HCl [Tarceva] 100 mg PO DAILY 05/07/18 Levothyroxine Sodium [Synthroid 0.088 mg Tablet] 0.088 mg PO Q6AM 05/07/18 Ondansetron [Zofran Odt] 8 mg PO Q8HP PRN 05/07/18 Oxycodone HCl [Oxycodone HCl 10 MG Tablet] 10 mg PO Q4HP PRN 05/07/18 Oxycodone HCl [Oxycontin] 20 mg PO BID 05/07/18 Allergies/Adverse Reactions: promethazine [From Phenergan] Allergy (Verified 05/07/18 09:46) Physical Exam Vital Signs: Temp Pulse Resp BP Pulse Ox 97.6 F 97 19 147/68 H 97 05/07/18 14:28 05/07/18 09:51 05/07/18 14:01 05/07/18 14:01 05/07/18 14:01 Intake & Output 05/06/18 05/07/18 05/08/18 06:59 06:59 06:59 Intake Total 1999 Balance 1999 Weight 170 lb 6.677 oz General appearance: PRESENT: no acute distress, well-developed, well-nourished Head exam: PRESENT: atraumatic, normocephalic Eye exam: PRESENT: conjunctiva pink, EOMI, PERRLA. ABSENT: scleral icterus Ear exam: PRESENT: normal external ear exam Mouth exam: PRESENT: dry mucosa Neck exam: ABSENT: carotid bruit, JVD, lymphadenopathy, thyromegaly Respiratory exam: PRESENT: clear to auscultation marlena. ABSENT: rales, rhonchi, wheezes Cardiovascular exam: PRESENT: RRR. ABSENT: diastolic murmur, rubs, systolic murmur Pulses: PRESENT: normal dorsalis pedis pul GI/Abdominal exam: PRESENT: normal bowel sounds, soft, tenderness - mild direct LLQ tenderness, no rebound. ABSENT: distended, guarding, mass, organolmegaly, rebound Rectal exam: PRESENT: deferred Neurological exam: PRESENT: alert, awake, oriented to person, oriented to place , oriented to time, oriented to situation, CN II-XII grossly intact. ABSENT: motor sensory deficit Skin exam: PRESENT: dry Results Laboratory Results: 05/07/18 11:00 05/07/18 11:00 05/07/18 05/07/18 05/07/18 11:00 11:00 11:00 WBC 4.2 RBC 2.88 L Hgb 8.9 L Hct 26.1 L MCV 91 MCH 30.8 MCHC 34.0 RDW 17.3 H Plt Count 192 Seg Neutrophils % 83.9 H Lymphocytes % 9.4 L Monocytes % 4.3 Eosinophils % 2.0 Basophils % 0.4 Absolute Neutrophils 3.5 Absolute Lymphocytes 0.4 L Absolute Monocytes 0.2 Absolute Eosinophils 0.1 Absolute Basophils 0.0 Sodium 139.4 Potassium 3.5 L Chloride 106 Carbon Dioxide 23 Anion Gap 10 BUN 25 H Creatinine 0.66 Est GFR ( Amer) > 60 Est GFR (Non-Af Amer) > 60 Glucose 97 Calcium 8.3 L Phosphorus 3.2 Magnesium 1.9 Total Bilirubin 2.9 H AST 38 ALT 43 Alkaline Phosphatase 117 Total Protein 5.5 L Albumin 2.8 L Lipase 38.1 Urine Color ZAFAR Urine Appearance CLOUDY Urine pH 5.0 Ur Specific [place] 1.024 Urine Protein 30 H Urine Glucose (UA) NEGATIVE Urine Ketones 20 H Urine Blood NEGATIVE Urine Nitrite NEGATIVE Ur Leukocyte Esterase LARGE H Urine WBC (Auto) 65 Urine RBC (Auto) 4 Assessment & Plan - Diagnosis (1) Nausea, vomiting and diarrhea Is this a current diagnosis for this admission?: Yes Plan: Possible secondary to intolerance to Irinotecan. Hold off on chemo drug. Zofran prn for nausea/vomiting. Patient says he becomes really "loopy" with phenergan. Will check stool WBC. Continue hydration with IV fluids. (2) Cystitis Plan: Patient does complain of dysuria in the past 3-4 days. UA is also consistent with UTI. Will continue Rocephin. - Time Time Spent: 30 to 50 Minutes
--- NOTE | 2018-05-07 18:46 | Progress Note ---
Provider Note Provider Note: Also discussed code status in length with patient with on bedside. He verbalized he does not want to chest compressions, cardioversion or mechanical ventilation if the need arises and would rather pass away peacefully.
[2018-05-07] MEDS: HEPARIN SOD (PORCINE) 5,000 UNIT/ML 1 ML SYRINGE SUBCUT SCH (21:45)
[2018-05-08] MEDS: NORMAL SALINE 1000 ML 1,000 ML IV PRN ×3 (01:49→18:00)
[2018-05-08] MEDS: LEVOTHYROXINE SODIUM 0.088 MG TABLET PO SCH (05:18)
[2018-05-08] MEDS: ONDANSETRON HCL INJ/PF 4 MG/2 ML SDV IV PRN ×3 (05:29→19:41)
[2018-05-08 06:35] LABS: ABSOLUTE EOSINOPHILS # (AUTO) 0.2 10^3/uL (0.0-0.6); ABSOLUTE LYMPHOCYTES (AUTO) 0.8 10^3/uL (0.5-4.7); ABSOLUTE MONOCYTES (AUTO) 0.1 10^3/uL (0.1-1.4); ABSOLUTE NEUT (AUTO) 4.6 10^3/uL (1.7-8.2); BASOPHILS % (AUTO) 0.5 % (0-2); HEMATOCRIT 26.4 % (37.9-51.0); LYMPHOCYTES % (AUTO) 13.6 % (13-45); MEAN CORPUSCULAR HEMOGLOBIN 31.1 pg (27.0-33.4); MEAN CORPUSCULAR HGB CONC 34.3 g/dL (32.0-36.0); MEAN CORPUSCULAR VOLUME 91 fl (80-97); MONOCYTES % (AUTO) 2.4 % (3-13); PLATELET COUNT 232 10^3/uL (150-450); RED BLOOD COUNT 2.91 10^6/uL (4.35-5.55); RED CELL DISTRIBUTION WIDTH 17.3 % (11.5-14.0); SEGMENTED NEUTROPHILS % (AUTO) 80.5 % (42-78); TOTAL CELLS COUNTED % (AUTO) 100 %; WHITE BLOOD COUNT 5.7 10^3/uL (4.0-10.5)
[2018-05-08 06:49] LABS: ALANINE AMINOTRANSFERASE 58 U/L (21-72); ALBUMIN 3.2 g/dL (3.5-5.0); ALKALINE PHOSPHATASE 155 U/L (38-126); ANION GAP 12 (5-19); ASPARTATE AMINO TRANSFERASE 46 U/L (17-59); BILIRUBIN,DIRECT 0.6 mg/dL (0.0-0.4); BILIRUBIN,TOTAL 2.5 mg/dL (0.2-1.3); BLOOD UREA NITROGEN 20 mg/dL (7-20); CALCIUM 8.8 mg/dL (8.4-10.2); CARBON DIOXIDE 23 mmol/L (22-30); CHLORIDE 107 mmol/L (98-107); GLUCOSE 90 mg/dL (75-110); POTASSIUM 3.9 mmol/L (3.6-5.0); SODIUM 141.6 mmol/L (137-145); TOTAL PROTEIN 6.1 g/dL (6.3-8.2)
--- NOTE | 2018-05-08 08:04 | PDOC CONSULTATION ---
Consultation Consult Date: 05/08/18 Attending physician:: GISELL CERON Consult reason:: Stage IV pancreatic cancer with severe intractable nausea as well as diarrhea History of Present Illness Admission Date/PCP: 05/07/18 15:39 SAMANTHA PERDUE MD Patient complains of: Nausea, diarrhea, dehydration History of Present Illness: PRAMOD GILL JR is a 82 year old male with a known history of stage IV pancreatic cancer, recently started on third line therapy with Infusion 5-FU + the new chemo agent ONIVYDE, which is liposomal irinotecan. He started that agent on Tuesday and had the 5-FU pump removed on Tuesday. About 2 hours after the pump was removed he began having nausea, dry heaves and then diarrhea began by Tuesday, he had 10-15 movements on Tuesday and then ultimately was very weak and came in on Tuesday. He has been hydrated aggressively here, UA indicated large leukocyte esterase so patient has been started on ceftriaxone. He has been doing a little bit better, he did have one episode of diarrhea since being in. Still having significant nausea. Past Medical History Cardiac Medical History: Denies: Coronary Artery Disease, Myocardial Infarction, Hypertension Pulmonary Medical History: Reports: Asthma - AT A YOUNGER AGE, NO ISSUES LATELY Denies: Bronchitis, Chronic Obstructive Pulmonary Disease (COPD), Pneumonia Neurological Medical History: Denies: Seizures Malignancy Medical History: Reports: Other - Stage IV pancreatic cancer GI Medical History: Denies: Hepatitis, Hiatal Hernia Musculoskeltal Medical History: Reports: Arthritis - OSTEO Psychiatric Medical History: Reports: Depression Hematology: Denies: Anemia, Sickle Cell Disease Past Surgical History Past Surgical History: Reports: Other - Endoscopic ultrasound with biopsy, port placement Denies: Pacemaker Social History Information Source: Patient Lives with: Family Smoking Status: Former Smoker Drugs: None - Advance Directive Resuscitation Status: Do Not Resuscitate Family History Family History: Reviewed & Not Pertinent Parental Family History Reviewed: Yes Children Family History Reviewed: Yes Sibling(s) Family History Reviewed.: Yes Medication/Allergy Home Medications: Clindamycin Phosphate 1 applic TP BID 05/07/18 Erlotinib HCl [Tarceva] 100 mg PO DAILY 05/07/18 Levothyroxine Sodium [Synthroid 0.088 mg Tablet] 0.088 mg PO Q6AM 05/07/18 Ondansetron [Zofran Odt] 8 mg PO Q8HP PRN 05/07/18 Oxycodone HCl [Oxycodone HCl 10 MG Tablet] 10 mg PO Q4HP PRN 05/07/18 Oxycodone HCl [Oxycontin] 20 mg PO BID 05/07/18 Allergies/Adverse Reactions: promethazine [From Phenergan] Allergy (Verified 05/07/18 09:46) Review of Systems Constitutional: PRESENT: anorexia, fatigue, weakness, weight loss Cardiovascular: ABSENT: chest pain, dyspnea on exertion, edema, orthropnea, palpitations Gastrointestinal: PRESENT: abdominal pain, diarrhea, nausea, vomiting Genitourinary: ABSENT: dysuria, hematuria Neurological: PRESENT: weakness Physical Exam Vital Signs: Temp Pulse Resp BP Pulse Ox 98.4 F 84 19 130/64 H 95 05/07/18 23:08 05/07/18 23:08 05/07/18 23:08 05/07/18 23:08 05/07/18 23:08 Intake & Output 05/07/18 05/08/18 05/09/18 06:59 06:59 06:59 Intake Total 1050 Balance 1050 Weight 80.3 kg General appearance: PRESENT: no acute distress, well-developed, well-nourished Head exam: PRESENT: atraumatic, normocephalic Eye exam: PRESENT: conjunctiva pink, EOMI, PERRLA. ABSENT: scleral icterus Ear exam: PRESENT: normal external ear exam Mouth exam: PRESENT: moist, tongue midline Neck exam: ABSENT: carotid bruit, JVD, lymphadenopathy, thyromegaly Respiratory exam: PRESENT: clear to auscultation marlena. ABSENT: rales, rhonchi, wheezes Cardiovascular exam: PRESENT: RRR. ABSENT: diastolic murmur, rubs, systolic murmur Pulses: PRESENT: normal dorsalis pedis pul Vascular exam: PRESENT: normal capillary refill GI/Abdominal exam: PRESENT: normal bowel sounds, soft. ABSENT: distended, guarding, mass, organolmegaly, rebound, tenderness Rectal exam: PRESENT: deferred Extremities exam: PRESENT: full ROM. ABSENT: calf tenderness, clubbing, pedal edema Neurological exam: PRESENT: alert, awake, oriented to person, oriented to place , oriented to time, oriented to situation, CN II-XII grossly intact. ABSENT: motor sensory deficit Psychiatric exam: PRESENT: appropriate affect, normal mood. ABSENT: homicidal ideation, suicidal ideation Skin exam: PRESENT: dry, intact, warm. ABSENT: cyanosis, rash Results Laboratory Results: 05/08/18 05:20 05/08/18 05:20 05/08/18 05/08/18 05:20 05:20 WBC 5.7 RBC 2.91 L Hgb 9.0 L Hct 26.4 L MCV 91 MCH 31.1 MCHC 34.3 RDW 17.3 H Plt Count 232 Seg Neutrophils % 80.5 H Lymphocytes % 13.6 Monocytes % 2.4 L Eosinophils % 3.0 Basophils % 0.5 Absolute Neutrophils 4.6 Absolute Lymphocytes 0.8 Absolute Monocytes 0.1 Absolute Eosinophils 0.2 Absolute Basophils 0.0 Sodium 141.6 Potassium 3.9 Chloride 107 Carbon Dioxide 23 Anion Gap 12 BUN 20 Creatinine 0.65 Est GFR ( Amer) > 60 Est GFR (Non-Af Amer) > 60 Glucose 90 Calcium 8.8 Total Bilirubin 2.5 H AST 46 ALT 58 Alkaline Phosphatase 155 H Total Protein 6.1 L Albumin 3.2 L Assessment & Plan - Diagnosis (1) Nausea, vomiting and diarrhea Is this a current diagnosis for this admission?: Yes Plan: Nausea vomiting diarrhea, chemotherapy-induced, continue with aggressive hydration, awaiting C. difficile assay and if that is negative plan for initiation of aggressive antidiarrheal start with loperamide, will possibly need Lomotil. Continue with antiemetics with Zofran, we can add Ativan if needed. Continue aggressive hydration for another 24 hours to see how patient is doing by tomorrow. (2) Pancreatic cancer Qualifiers: Pancreatic malignancy location: head of pancreas Qualified Code(s): C25.0 - Malignant neoplasm of head of pancreas Is this a current diagnosis for this admission?: Yes Plan: Stage IV pancreatic cancer, recently initiated third line therapy, discuss treatment further with patient, at this point patient does not want to think about getting another treatment. I discussed comfort care, he would like to discuss it further with his . I will discuss it tomorrow in the morning with them. If they are agreeable, I will get a hospice consult initiated. (3) Cystitis Is this a current diagnosis for this admission?: Yes Plan: Agree with ceftriaxone, continue await cultures (4) Anemia Qualifiers: Anemia type: bone marrow failure Bone marrow failure anemia type: pancytopenia, antineoplastic chemotherapy-induced Qualified Code(s): D61.810 - Antineoplastic chemotherapy induced pancytopenia; T45.1X5A - Adverse effect of antineoplastic and immunosuppressive drugs, initial encounter; T45.1X5A - Adverse effect of antineoplastic and immunosuppressive drugs, initial encounter Is this a current diagnosis for this admission?: Yes Plan: Anemia secondary to chemotherapy, hold on transfusion unless hemoglobin gets under 7. (5) Pain, neoplasm-related Is this a current diagnosis for this admission?: Yes Plan: Pain related to the pancreatic tumor, he did have a celiac block done last week and does have some pain improvement, continue with current IV pain medication, he will go back to his oral regimen as an outpatient. - Time Time Spent: Greater than 70 Minutes - Inpatient Certification Based on my medical assessment, after consideration of the patient's comorbidities, presenting symptoms, or acuity I expect that the services needed warrant INPATIENT care.: Yes I certify that my determination is in accordance with my understanding of Medicare's requirements for reasonable and necessary INPATIENT services [42 CFR 412.3e].: Yes Medical Necessity: Need For IV Fluids, Need for Pain Control, Need for IV Antibiotics, Risk of Complication if Not Cared For in Hospital
--- NOTE | 2018-05-08 08:36 | Physician Advisory Note ---
Physician Advisor ProgressNote .: [facility] I have reviewed the medical record for this patient. Physician Advisor Statement: Please consider documenting, if you agree: 1. "Acute cystitis" (vs chronic) 2. 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 "opioid dependence due to CA" 4. "Pt continues to require hospital care & monitoring for a 2nd MN due to ____ " Status: Medicare pt, still w/signif nausea, unable to take adequate po intake or po meds ye despite very aggressive hydration IV so far (3L of boluses, then 125/hr). Onc recommending continuing tx for 24+hrs more in hospital given inadequate response so far, which will require a 2nd MN. Appropriate for Inpt status w/documentation of above. Thanks! CK
[2018-05-08] MEDS ORDERED: CEFTRIAXONE 1 GM/D5W RTU 1 GM/50 ML RTUPB IV SCH (10:00)
[2018-05-08] MEDS: HEPARIN SOD (PORCINE) 5,000 UNIT/ML 1 ML SYRINGE SUBCUT SCH ×2 (10:20→21:02)
[2018-05-08] MEDS: OXYCODONE HCL SR 10 MG TABLET PO SCH ×2 (10:20→17:59)
--- NOTE | 2018-05-08 13:01 | PDOC PROGRESS REPORT ---
Subjective Progress Note for:: 05/08/18 Subjective:: PRAMOD GILL JR is a 82 year old male with a past medical history of stage 4 pancreatic cancer (recently increased in size), history of colon cancer with prior resection and chemotherapy in 1998, hypothyroidism, and history of peptic ulcer disease who presented with nausea, vomiting and diarrhea after being recently started on Irinotecan. He was admitted for intractable nausea/vomiting , persistent diarrhea and dehydration. Patient had at least 5 episodes of watery, nonbloody stools overnight. No vomiting. He says his nausea has improved. He says he still does not want to eat. He says he got relief from his abdominal pain with the dilaudid. No fever or chills. No SOB or chest pain. Reason For Visit: INTRACTABLE NAUSEA/VOMITING,DEHYDRATION, Physical Exam Vital Signs: Temp Pulse Resp BP Pulse Ox 98.3 F 86 20 151/70 H 96 05/08/18 11:46 05/08/18 11:46 05/08/18 11:46 05/08/18 11:46 05/08/18 11:46 Intake & Output 05/07/18 05/08/18 05/09/18 06:59 06:59 06:59 Intake Total 1050 Balance 1050 Weight 177 lb 0.499 oz General appearance: PRESENT: no acute distress, thin Head exam: PRESENT: atraumatic, normocephalic Eye exam: PRESENT: conjunctiva pink, EOMI, PERRLA. ABSENT: scleral icterus Ear exam: PRESENT: normal external ear exam Mouth exam: PRESENT: moist, tongue midline Neck exam: ABSENT: carotid bruit, JVD, lymphadenopathy, thyromegaly Respiratory exam: PRESENT: clear to auscultation marlena. ABSENT: rales, rhonchi, wheezes Cardiovascular exam: PRESENT: RRR. ABSENT: diastolic murmur, rubs, systolic murmur GI/Abdominal exam: PRESENT: normal bowel sounds, soft. ABSENT: distended, guarding, organolmegaly, rebound, tenderness Rectal exam: PRESENT: deferred Neurological exam: PRESENT: alert, awake, oriented to person, oriented to place , oriented to time, oriented to situation, CN II-XII grossly intact. ABSENT: motor sensory deficit Results Laboratory Results: 05/08/18 05:20 05/08/18 05:20 05/08/18 05/08/1818 05:20 05:20 06:15 WBC 5.7 RBC 2.91 L Hgb 9.0 L Hct 26.4 L MCV 91 MCH 31.1 MCHC 34.3 RDW 17.3 H Plt Count 232 Seg Neutrophils % 80.5 H Lymphocytes % 13.6 Monocytes % 2.4 L Eosinophils % 3.0 Basophils % 0.5 Absolute Neutrophils 4.6 Absolute Lymphocytes 0.8 Absolute Monocytes 0.1 Absolute Eosinophils 0.2 Absolute Basophils 0.0 Sodium 141.6 Potassium 3.9 Chloride 107 Carbon Dioxide 23 Anion Gap 12 BUN 20 Creatinine 0.65 Est GFR ( Amer) > 60 Est GFR (Non-Af Amer) > 60 Glucose 90 Calcium 8.8 Total Bilirubin 2.5 H AST 46 ALT 58 Alkaline Phosphatase 155 H Total Protein 6.1 L Albumin 3.2 L Stool for White Cells FEW H Assessment & Plan - Diagnosis (1) Nausea, vomiting and diarrhea Is this a current diagnosis for this admission?: Yes Plan: Possibly chemo-induced. He continues to have diarrhea. C diff testing pending. Continue zofran prn. Continue hydration with IV fluids. Will advance diet as tolerated. (2) Cystitis Is this a current diagnosis for this admission?: Yes Plan: Patient does complain of dysuria in the past 3-4 days. UA is also consistent with UTI. On Rocephin. (3) Pancreatic cancer Qualifiers: Pancreatic malignancy location: head of pancreas Qualified Code(s): C25.0 - Malignant neoplasm of head of pancreas Is this a current diagnosis for this admission?: Yes Plan: Oncology following and has discussed possible hospice care with patient. Rediscussed with patient and he says he is amenable to it but he says he needs to rediscuss it with his later today as she is still hesitant about the transition. (4) Dehydration Is this a current diagnosis for this admission?: Yes Plan: Secondary to GI losses. Continue IV fluids as mentioned. Advance diet as patient tolerates. - Time Time Spent with patient: 15-24 minutes - Inpatient Certification I certify that my determination is in accordance with my understanding of Medicare's requirements for reasonable and necessary INPATIENT services [42 CFR 412.3e].: Yes Medical Necessity: Need For IV Fluids, Risk of Complication if Not Cared For in Hospital
[2018-05-08] MEDS: CEFTRIAXONE SODIUM 1,000 MG in DEXTROSE 5%-WATER 50 ML IV SCH (18:00)
[2018-05-08] MEDS ORDERED: LOPERAMIDE HCL 2 MG CAPSULE PO PRN ×2 (19:06→19:38)
[2018-05-09] MEDS: LOPERAMIDE HCL 2 MG CAPSULE PO SCH ×4 (00:07→18:37)
[2018-05-09] MEDS: ONDANSETRON HCL INJ/PF 4 MG/2 ML SDV IV PRN ×4 (04:09→23:46)
[2018-05-09] MEDS: NORMAL SALINE 1000 ML 1,000 ML IV PRN ×3 (04:10→22:16)
[2018-05-09] MEDS: OXYCODONE HCL IR 5 MG TABLET PO PRN ×2 (05:07→23:49)
[2018-05-09] MEDS: LEVOTHYROXINE SODIUM 0.088 MG TABLET PO SCH (05:09)
--- NOTE | 2018-05-09 08:44 | PDOC PROGRESS REPORT ---
Subjective Progress Note for:: 05/09/18 Subjective:: PRAMOD GILL JR is a 82 year old male with a past medical history of stage 4 pancreatic cancer (recently increased in size), colon cancer with prior resection and chemotherapy in 1998, hypothyroidism, and peptic ulcer disease who presented with nausea, vomiting and diarrhea after being recently started on Irinotecan. He was admitted for intractable nausea/vomiting, persistent diarrhea and dehydration. 05/09/2018. Patient is comfortably sitting in his bed and enjoying his breakfast. He does not seem to be in any acute distress. Says he is feeling much better and able to tolerate his p.o. intake. His diarrhea has also been better controlled. Overnight he was able to sleep. He has decided to continue with current CODE STATUS and will decide on transition to [facility] after discharge. He denies any fever, chest pain, shortness of breath, constipation, urinary symptoms. Reason For Visit: INTRACTABLE NAUSEA/VOMITING,DEHYDRATION, Physical Exam Vital Signs: Temp Pulse Resp BP Pulse Ox 98.6 F 83 16 140/68 H 94 05/09/18 07:33 05/09/18 07:33 05/09/18 07:33 05/09/18 07:33 05/08/18 23:47 Intake & Output 05/08/18 05/09/18 05/10/18 06:59 06:59 06:59 Intake Total 1050 3143 Output Total 360 Balance 1050 2783 Weight 80.3 kg 81.4 kg General appearance: PRESENT: no acute distress, well-developed, well-nourished Head exam: PRESENT: atraumatic, normocephalic Eye exam: PRESENT: conjunctiva pink, EOMI, PERRLA. ABSENT: scleral icterus Ear exam: PRESENT: normal external ear exam Mouth exam: PRESENT: moist, tongue midline Neck exam: ABSENT: carotid bruit, JVD, lymphadenopathy, thyromegaly Respiratory exam: PRESENT: clear to auscultation marlena. ABSENT: rales, rhonchi, wheezes Cardiovascular exam: PRESENT: RRR. ABSENT: diastolic murmur, rubs, systolic murmur Pulses: PRESENT: normal dorsalis pedis pul Vascular exam: PRESENT: normal capillary refill GI/Abdominal exam: PRESENT: normal bowel sounds, soft. ABSENT: distended, guarding, mass, organolmegaly, rebound, tenderness Rectal exam: PRESENT: deferred Extremities exam: PRESENT: full ROM. ABSENT: calf tenderness, clubbing, pedal edema Neurological exam: PRESENT: alert, awake, oriented to person, oriented to place , oriented to time, oriented to situation, CN II-XII grossly intact. ABSENT: motor sensory deficit Psychiatric exam: PRESENT: appropriate affect, normal mood. ABSENT: homicidal ideation, suicidal ideation Skin exam: PRESENT: dry, intact, warm. ABSENT: cyanosis, rash Results Laboratory Results: 05/08/18 05:20 05/08/18 05:20 Assessment & Plan - Diagnosis (1) Nausea, vomiting and diarrhea Is this a current diagnosis for this admission?: Yes Plan: Improving. Possibly due to recent chemotherapy or recent iliac nerve block procedure. C. difficile toxin negative, white blood cells within normal limits. Continue aggressive volume resuscitation guided by his volume status. Start on loperamide scheduled and Lomotil as needed. Continue Zofran and Ativan as needed. Monitor electrolytes and replace as needed. Advance diet as tolerated. (2) History of pancreatic cancer Is this a current diagnosis for this admission?: Yes Plan: Stage IV, recently initiated third line of chemotherapy. As per oncology note chemotherapy is on hold as does not want to get any further chemotherapy. Patient has decided to keep his current CODE STATUS and will decide for possible transition to [employer] [facility] after discharge. (3) Dehydration Is this a current diagnosis for this admission?: Yes Plan: As problem #1 (4) Urinary tract infection Qualifiers: Urinary tract infection type: site unspecified Hematuria presence: without hematuria Qualified Code(s): N39.0 - Urinary tract infection, site not specified Is this a current diagnosis for this admission?: Yes Plan: Uncomplicated. Likely acute cystitis caused by gram-negative rods such as E. coli. Cultures negative so far. Continue empiric antibiotics. Follow-up cultures and switch to oral antibiotics once sensitivity available. (5) Anemia Qualifiers: Anemia type: bone marrow failure Bone marrow failure anemia type: pancytopenia, antineoplastic chemotherapy-induced Qualified Code(s): D61.810 - Antineoplastic chemotherapy induced pancytopenia; T45.1X5A - Adverse effect of antineoplastic and immunosuppressive drugs, initial encounter; T45.1X5A - Adverse effect of antineoplastic and immunosuppressive drugs, initial encounter Is this a current diagnosis for this admission?: Yes Plan: Normocytic. Multifactorial. Likely due to combination of chemotherapy, underlying malignancy and dietary deficiency. Denies any external source of bleeding. Monitor H&H. Transfuse if hemoglobin under 7, actively bleeding, or symptomatic. (6) Pain, neoplasm-related Is this a current diagnosis for this admission?: Yes Plan: Pain related due to underlying malignancy. Patient is status post celiac block times 1 week which unfortunately have not been effective. Continue IV analgesics and p.o. as needed. Outpatient pain management follow- up. (7) Opioid dependence Is this a current diagnosis for this admission?: Yes Plan: As problem #6.
--- NOTE | 2018-05-09 09:16 | PDOC PROGRESS REPORT ---
Subjective Progress Note for:: 05/09/18 Subjective:: Patient states that he is feeling better this morning than he has in days. He was able to eat some mashed potatoes yesterday and the diarrhea has slowed. ROS : No chest pain. Mild abdominal pain. Some nausea and diarrhea continue. No headaches. Reason For Visit: INTRACTABLE NAUSEA/VOMITING,DEHYDRATION, Physical Exam Vital Signs: Temp Pulse Resp BP Pulse Ox 98.6 F 83 16 140/68 H 94 05/09/18 07:33 05/09/18 07:33 05/09/18 07:33 05/09/18 07:33 05/08/18 23:47 Intake & Output 05/08/18 05/09/18 05/10/18 06:59 06:59 06:59 Intake Total 1050 3143 Output Total 360 Balance 1050 2783 Weight 80.3 kg 81.4 kg General appearance: PRESENT: no acute distress Neck exam: ABSENT: lymphadenopathy, tenderness Respiratory exam: PRESENT: clear to auscultation marlena, unlabored Cardiovascular exam: PRESENT: RRR GI/Abdominal exam: PRESENT: normal bowel sounds, soft, tenderness Extremities exam: ABSENT: pedal edema Neurological exam: PRESENT: alert, awake, oriented to person, oriented to place , oriented to time, oriented to situation Psychiatric exam: PRESENT: appropriate affect Skin exam: PRESENT: normal color Results Laboratory Results: 05/08/18 05:20 05/08/18 05:20 Assessment & Plan - Diagnosis (1) History of pancreatic cancer Is this a current diagnosis for this admission?: Yes Plan: Treatment currently on hold. (2) Nausea, vomiting and diarrhea Is this a current diagnosis for this admission?: Yes Plan: Believed to be a combination of his cancer, the recent nerve block procedure, and medications. Now improving. C.dif was negative. Continue to slowly advance diet. Continue IV fluids. (3) Dehydration Is this a current diagnosis for this admission?: Yes Plan: Improving. Continue IV fluids. (4) Urinary tract infection Qualifiers: Urinary tract infection type: site unspecified Hematuria presence: without hematuria Qualified Code(s): N39.0 - Urinary tract infection, site not specified Is this a current diagnosis for this admission?: Yes Plan: On appropriate antibiotics.
[2018-05-09] MEDS: OXYCODONE HCL SR 10 MG TABLET PO SCH ×2 (09:58→17:14)
[2018-05-09] MEDS: HEPARIN SOD (PORCINE) 5,000 UNIT/ML 1 ML SYRINGE SUBCUT SCH ×2 (09:59→22:15)
[2018-05-09] MEDS: CEFTRIAXONE SODIUM 1,000 MG in DEXTROSE 5%-WATER 50 ML IV SCH (17:18)
[2018-05-10] MEDS: LOPERAMIDE HCL 2 MG CAPSULE PO SCH ×4 (01:51→17:57)
[2018-05-10] MEDS: LEVOTHYROXINE SODIUM 0.088 MG TABLET PO SCH (05:34)
[2018-05-10 07:05] LABS: ALANINE AMINOTRANSFERASE 38 U/L (21-72); ALBUMIN 2.5 g/dL (3.5-5.0); ALKALINE PHOSPHATASE 105 U/L (38-126); ANION GAP 7 (5-19); ASPARTATE AMINO TRANSFERASE 26 U/L (17-59); BILIRUBIN,DIRECT 0.6 mg/dL (0.0-0.4); BILIRUBIN,TOTAL 1.5 mg/dL (0.2-1.3); BLOOD UREA NITROGEN 14 mg/dL (7-20); CALCIUM 8.3 mg/dL (8.4-10.2); CARBON DIOXIDE 23 mmol/L (22-30); CHLORIDE 108 mmol/L (98-107); GLUCOSE 79 mg/dL (75-110); POTASSIUM 3.3 mmol/L (3.6-5.0); SODIUM 138.2 mmol/L (137-145); TOTAL PROTEIN 5.1 g/dL (6.3-8.2)
[2018-05-10 07:45] LABS: HEMATOCRIT 21.1 % (37.9-51.0); MEAN CORPUSCULAR HEMOGLOBIN 30.7 pg (27.0-33.4); MEAN CORPUSCULAR HGB CONC 33.7 g/dL (32.0-36.0); MEAN CORPUSCULAR VOLUME 91 fl (80-97); PLATELET COUNT 135 10^3/uL (150-450); RED BLOOD COUNT 2.32 10^6/uL (4.35-5.55); RED CELL DISTRIBUTION WIDTH 17.3 % (11.5-14.0)
[2018-05-10 08:01] LABS: WHITE BLOOD COUNT 1.8 10^3/uL (4.0-10.5)
[2018-05-10 08:02] LABS: HEMOGLOBIN 7.1 g/dL (13.5-17.0)
[2018-05-10] MEDS: OXYCODONE HCL IR 5 MG TABLET PO PRN (08:07)
[2018-05-10] MEDS: ONDANSETRON HCL INJ/PF 4 MG/2 ML SDV IV PRN ×2 (08:08→14:07)
[2018-05-10 08:18] LABS: ABSOLUTE LYMPHOCYTES# (MANUAL) 0.4 10^3/uL (0.5-4.7); ABSOLUTE NEUTROPHILS# (MANUAL) 1.4 10^3/uL (1.7-8.2); ANISOCYTOSIS 2+; BASOPHILS % (MANUAL) 0 % (0-2); EOSINOPHILS % (MANUAL) 2 % (0-6); HYPOCHROMASIA SLIGHT; LYMPHOCYTES % (MANUAL) 19 % (13-45); MONOCYTES % (MANUAL) 0 % (3-13); PLATELET CLUMPS PRESENT; POLYCHROMASIA SLIGHT; SEGMENTED NEUTROPHILS % (MAN) 77 % (42-78); TOTAL CELLS COUNTED 100; TOXIC GRANULATION 2+; TOXIC VACUOLATION PRESENT
--- NOTE | 2018-05-10 08:42 | PDOC PROGRESS REPORT ---
Subjective Progress Note for:: 05/10/18 Subjective:: Today had a long discussion with the patient and at bedside. He still very nauseous, not able to eat or drink much. Discussed hospice care with the patient and family, they seem amenable to this, but I wanted to give him another 24 hours of hydration to see if his eating improved before we discuss discharge. Depending on how he is feeling by tomorrow, I will get hospice involved and get him home. Reason For Visit: INTRACTABLE NAUSEA/VOMITING,DEHYDRATION, Physical Exam Vital Signs: Temp Pulse Resp BP Pulse Ox 98.7 F 91 18 102/56 L 80 L 05/09/18 23:44 05/09/18 23:44 05/09/18 23:44 05/09/18 23:44 05/09/18 23:44 Intake & Output 05/09/18 05/10/18 05/11/18 06:59 06:59 06:59 Intake Total 2022 2285 Balance 2022 2285 Weight 81.4 kg 83.7 kg General appearance: PRESENT: no acute distress, well-developed, well-nourished Head exam: PRESENT: atraumatic, normocephalic Eye exam: PRESENT: conjunctiva pink, EOMI, PERRLA. ABSENT: scleral icterus Ear exam: PRESENT: normal external ear exam Mouth exam: PRESENT: moist, tongue midline Neck exam: ABSENT: carotid bruit, JVD, lymphadenopathy, thyromegaly Respiratory exam: PRESENT: clear to auscultation marlena. ABSENT: rales, rhonchi, wheezes Cardiovascular exam: PRESENT: RRR. ABSENT: diastolic murmur, rubs, systolic murmur Pulses: PRESENT: normal dorsalis pedis pul Vascular exam: PRESENT: normal capillary refill GI/Abdominal exam: PRESENT: normal bowel sounds, soft. ABSENT: distended, guarding, mass, organolmegaly, rebound, tenderness Rectal exam: PRESENT: deferred Extremities exam: PRESENT: full ROM. ABSENT: calf tenderness, clubbing, pedal edema Neurological exam: PRESENT: alert, awake, oriented to person, oriented to place , oriented to time, oriented to situation, CN II-XII grossly intact. ABSENT: motor sensory deficit Psychiatric exam: PRESENT: appropriate affect, normal mood. ABSENT: homicidal ideation, suicidal ideation Skin exam: PRESENT: dry, intact, warm. ABSENT: cyanosis, rash Results Laboratory Results: 05/10/18 07:25 05/10/18 06:10 05/10/18 05/10/18 05/10/18 06:10 06:10 07:25 WBC Cancelled 1.8 L D RBC Cancelled 2.32 L Hgb Cancelled 7.1 L Hct Cancelled 21.1 L MCV Cancelled 91 MCH Cancelled 30.7 MCHC Cancelled 33.7 RDW Cancelled 17.3 H Plt Count Cancelled 135 L Seg Neutrophils % Cancelled Not Reportable Lymphocytes % Cancelled Not Reportable Monocytes % Cancelled Not Reportable Eosinophils % Cancelled Not Reportable Basophils % Cancelled Not Reportable Absolute Neutrophils Cancelled Not Reportable Absolute Lymphocytes Cancelled Not Reportable Absolute Monocytes Cancelled Not Reportable Absolute Eosinophils Cancelled Not Reportable Absolute Basophils Cancelled Not Reportable Sodium 138.2 Potassium 3.3 L Chloride 108 H Carbon Dioxide 23 Anion Gap 7 BUN 14 Creatinine 0.72 Est GFR ( Amer) > 60 Est GFR (Non-Af Amer) > 60 Glucose 79 Calcium 8.3 L Magnesium 1.7 Total Bilirubin 1.5 H AST 26 ALT 38 Alkaline Phosphatase 105 Total Protein 5.1 L Albumin 2.5 L Assessment & Plan - Diagnosis (1) Nausea, vomiting and diarrhea Is this a current diagnosis for this admission?: Yes Plan: Diarrhea improved, continue nausea and vomiting. Continue with hydration as well as current antiemetic care. (2) Pancreatic cancer Qualifiers: Pancreatic malignancy location: head of pancreas Qualified Code(s): C25.0 - Malignant neoplasm of head of pancreas Is this a current diagnosis for this admission?: Yes Plan: Holding on therapy, probable hospice soon. (3) Cystitis Is this a current diagnosis for this admission?: Yes Plan: Continue current antibiotic therapy (4) Anemia Qualifiers: Anemia type: bone marrow failure Bone marrow failure anemia type: pancytopenia, antineoplastic chemotherapy-induced Qualified Code(s): D61.810 - Antineoplastic chemotherapy induced pancytopenia; T45.1X5A - Adverse effect of antineoplastic and immunosuppressive drugs, initial encounter; T45.1X5A - Adverse effect of antineoplastic and immunosuppressive drugs, initial encounter Is this a current diagnosis for this admission?: Yes Plan: Hemoglobin dropped down to 7, if it drops below 7 plan for transfusion. (5) Pain, neoplasm-related Is this a current diagnosis for this admission?: Yes Plan: Continue current pain control. - Time Time Spent with patient: 35 or more minutes - Inpatient Certification Based on my medical assessment, after consideration of the patient's comorbidities, presenting symptoms, or acuity I expect that the services needed warrant INPATIENT care.: Yes I certify that my determination is in accordance with my understanding of Medicare's requirements for reasonable and necessary INPATIENT services [42 CFR 412.3e].: Yes Medical Necessity: Need For IV Fluids, Risk of Complication if Not Cared For in Hospital
[2018-05-10] MEDS ORDERED: LORAZEPAM 1 MG TABLET PO PRN (09:16)
[2018-05-10] MEDS ORDERED: MEGESTROL ACETATE 20 MG TABLET PO SCH (10:00)
[2018-05-10] MEDS: HEPARIN SOD (PORCINE) 5,000 UNIT/ML 1 ML SYRINGE SUBCUT SCH ×2 (10:52→11:04)
[2018-05-10] MEDS: OXYCODONE HCL SR 10 MG TABLET PO SCH ×2 (10:53→17:56)
--- NOTE | 2018-05-10 11:07 | PDOC PROGRESS REPORT ---
Subjective Progress Note for:: 05/10/18 Subjective:: PRAMOD GILL JR is a 82 year old male with a past medical history of stage 4 pancreatic cancer (recently increased in size), colon cancer with prior resection and chemotherapy in 1998, hypothyroidism, and peptic ulcer disease who presented with nausea, vomiting and diarrhea after being recently started on Irinotecan. He was admitted for intractable nausea/vomiting, persistent diarrhea and dehydration. 05/09/2018. Patient is comfortably sitting in his bed and enjoying his breakfast. He does not seem to be in any acute distress. Says he is feeling much better and able to tolerate his p.o. intake. His diarrhea has also been better controlled. Overnight he was able to sleep. He has decided to continue with current CODE STATUS and will decide on transition to [employer] after discharge. He denies any fever, chest pain, shortness of breath, constipation, urinary symptoms. 05/10/2018. No acute events overnight. On my encounter patient is brushing his teeth. He seems very anxious and sad but does not seem to be in any acute distress. He had a long discussion with his oncologist today and plan is to discharge to hospice tomorrow. Patient has a very low appetite and also has not been able to tolerate his p.o. intake due to excessive nausea. Diarrhea has resolved and he has not use any antidiarrheals for the last 24 hours. Patient denies any fever, chills, shortness of breath, chest pain or any urinary symptoms. Reason For Visit: INTRACTABLE NAUSEA/VOMITING,DEHYDRATION, Physical Exam Vital Signs: Temp Pulse Resp BP Pulse Ox 98.4 F 59 L 16 125/73 91 L 05/10/18 09:13 05/10/18 09:13 05/10/18 09:13 05/10/18 09:13 05/10/18 09:13 Intake & Output 05/09/18 05/10/18 05/11/18 06:59 06:59 06:59 Intake Total 2022 2285 Balance 2022 2285 Weight 81.4 kg 83.7 kg General appearance: PRESENT: no acute distress, well-developed, well-nourished Head exam: PRESENT: atraumatic, normocephalic Eye exam: PRESENT: conjunctiva pink, EOMI, PERRLA. ABSENT: scleral icterus Ear exam: PRESENT: normal external ear exam Mouth exam: PRESENT: moist, tongue midline Neck exam: ABSENT: carotid bruit, JVD, lymphadenopathy, thyromegaly Respiratory exam: PRESENT: clear to auscultation marlena. ABSENT: rales, rhonchi, wheezes Cardiovascular exam: PRESENT: RRR. ABSENT: diastolic murmur, rubs, systolic murmur Pulses: PRESENT: normal dorsalis pedis pul Vascular exam: PRESENT: normal capillary refill GI/Abdominal exam: PRESENT: normal bowel sounds, soft. ABSENT: distended, guarding, mass, organolmegaly, rebound, tenderness Rectal exam: PRESENT: deferred Extremities exam: PRESENT: full ROM. ABSENT: calf tenderness, clubbing, pedal edema Neurological exam: PRESENT: alert, awake, oriented to person, oriented to place , oriented to time, oriented to situation, CN II-XII grossly intact. ABSENT: motor sensory deficit Psychiatric exam: PRESENT: anxious, appropriate affect, depressed, normal mood. ABSENT: homicidal ideation, suicidal ideation Skin exam: PRESENT: dry, intact, warm. ABSENT: cyanosis, rash Results Laboratory Results: 05/10/18 07:25 05/10/18 06:10 05/10/18 05/10/18 05/10/18 06:10 06:10 07:25 WBC Cancelled 1.8 L D RBC Cancelled 2.32 L Hgb Cancelled 7.1 L Hct Cancelled 21.1 L MCV Cancelled 91 MCH Cancelled 30.7 MCHC Cancelled 33.7 RDW Cancelled 17.3 H Plt Count Cancelled 135 L Seg Neutrophils % Cancelled Not Reportable Lymphocytes % Cancelled Not Reportable Monocytes % Cancelled Not Reportable Eosinophils % Cancelled Not Reportable Basophils % Cancelled Not Reportable Absolute Neutrophils Cancelled Not Reportable Absolute Lymphocytes Cancelled Not Reportable Absolute Monocytes Cancelled Not Reportable Absolute Eosinophils Cancelled Not Reportable Absolute Basophils Cancelled Not Reportable Sodium 138.2 Potassium 3.3 L Chloride 108 H Carbon Dioxide 23 Anion Gap 7 BUN 14 Creatinine 0.72 Est GFR ( Amer) > 60 Est GFR (Non-Af Amer) > 60 Glucose 79 Calcium 8.3 L Magnesium 1.7 Total Bilirubin 1.5 H AST 26 ALT 38 Alkaline Phosphatase 105 Total Protein 5.1 L Albumin 2.5 L Assessment & Plan - Diagnosis (1) Nausea, vomiting and diarrhea Is this a current diagnosis for this admission?: Yes Plan: Improving. Possibly due to recent chemotherapy or recent iliac nerve block procedure. C. difficile toxin negative, white blood cells within normal limits. Continue aggressive volume resuscitation guided by his volume status. Continue loperamide scheduled and Lomotil as needed. Continue Zofran and Ativan as needed. Monitor electrolytes and replace as needed. Advance diet as tolerated. (2) History of pancreatic cancer Is this a current diagnosis for this admission?: Yes Plan: Stage IV, recently initiated third line of chemotherapy. As per oncology note chemotherapy is on hold as does not want to get any further chemotherapy. Patient has a long discussion with his oncologist. Plan is to keep patient for another 24 hours and discharged to hospice tomorrow. Patient is agreeable with the plan. (3) Dehydration Is this a current diagnosis for this admission?: Yes Plan: Continue IV fluids guided by volume status. (4) Urinary tract infection Qualifiers: Urinary tract infection type: site unspecified Hematuria presence: without hematuria Qualified Code(s): N39.0 - Urinary tract infection, site not specified Is this a current diagnosis for this admission?: Yes Plan: Uncomplicated. Likely acute cystitis caused by gram-negative rods such as E. coli. Cultures negative so far. Received 2 days of IV ceftriaxone. Start Keflex 500 p.o. twice daily for another 3 days. Follow-up cultures and switch to oral antibiotics once sensitivity available. (5) Anemia Qualifiers: Anemia type: bone marrow failure Bone marrow failure anemia type: pancytopenia, antineoplastic chemotherapy-induced Qualified Code(s): D61.810 - Antineoplastic chemotherapy induced pancytopenia; T45.1X5A - Adverse effect of antineoplastic and immunosuppressive drugs, initial encounter; T45.1X5A - Adverse effect of antineoplastic and immunosuppressive drugs, initial encounter Is this a current diagnosis for this admission?: Yes Plan: Normocytic. Multifactorial. Likely due to combination of chemotherapy, underlying malignancy and dietary deficiency. Denies any external source of bleeding. Monitor H&H. Transfuse if hemoglobin under 7, actively bleeding, or symptomatic. (6) Pain, neoplasm-related Is this a current diagnosis for this admission?: Yes Plan: Pain related due to underlying malignancy. Patient is status post celiac block times 1 week which unfortunately have not been effective. Continue IV analgesics and p.o. as needed. Outpatient pain management follow- up. (7) Opioid dependence Is this a current diagnosis for this admission?: Yes Plan: As problem #6. (8) Anorexia Is this a current diagnosis for this admission?: Yes Plan: Due to underlying malignancy and side effects of chemotherapy. Started on Megace.
[2018-05-10] MEDS ORDERED: POTASSIUM CHLORIDE 20 MEQ/15 ML UDCUP PO ONE (11:30)
[2018-05-10] MEDS ORDERED: POTASSIUM CHLORIDE 10 MEQ CAPSULE.ER PO ONE (14:00)
[2018-05-10] MEDS ORDERED: PROMETHAZINE HCL INJ 25 MG/1 ML VIAL IV PRN (17:47)
[2018-05-10] MEDS: NORMAL SALINE 1000 ML 1,000 ML IV PRN (18:09)
[2018-05-10 18:10] LABS: ANION GAP 8 (5-19); BLOOD UREA NITROGEN 13 mg/dL (7-20); CALCIUM 8.3 mg/dL (8.4-10.2); CARBON DIOXIDE 23 mmol/L (22-30); CHLORIDE 106 mmol/L (98-107); GLUCOSE 98 mg/dL (75-110); POTASSIUM 3.5 mmol/L (3.6-5.0); SODIUM 137.4 mmol/L (137-145)
[2018-05-10] MEDS: HYDROMORPHONE HCL INJ/PF 2 MG/ML AMPULE IV PRN (20:22)
[2018-05-11] MEDS: LOPERAMIDE HCL 2 MG CAPSULE PO SCH ×6 (01:22→23:46)
[2018-05-11] MEDS: LEVOTHYROXINE SODIUM 0.088 MG TABLET PO SCH (06:14)
[2018-05-11 06:59] LABS: ABSOLUTE LYMPHOCYTES (AUTO) 0.3 10^3/uL (0.5-4.7); ABSOLUTE MONOCYTES (AUTO) 0.1 10^3/uL (0.1-1.4); ABSOLUTE NEUT (AUTO) 1.1 10^3/uL (1.7-8.2); BASOPHILS % (AUTO) 0.3 % (0-2); EOSINOPHILS % (AUTO) 2.2 % (0-6); HEMATOCRIT 21.3 % (37.9-51.0); LYMPHOCYTES % (AUTO) 17.2 % (13-45); MEAN CORPUSCULAR HEMOGLOBIN 30.5 pg (27.0-33.4); MEAN CORPUSCULAR HGB CONC 33.6 g/dL (32.0-36.0); MEAN CORPUSCULAR VOLUME 91 fl (80-97); MONOCYTES % (AUTO) 8.6 % (3-13); PLATELET COUNT 143 10^3/uL (150-450); RED BLOOD COUNT 2.34 10^6/uL (4.35-5.55); RED CELL DISTRIBUTION WIDTH 17.1 % (11.5-14.0); SEGMENTED NEUTROPHILS % (AUTO) 71.7 % (42-78); TOTAL CELLS COUNTED % (AUTO) 100 %; WHITE BLOOD COUNT 1.6 10^3/uL (4.0-10.5)
[2018-05-11] MEDS: NORMAL SALINE 1000 ML 1,000 ML IV PRN ×2 (07:04→18:16)
[2018-05-11 08:05] LABS: HEMOGLOBIN 7.1 g/dL (13.5-17.0)
[2018-05-11 08:06] LABS: ANISOCYTOSIS 2+; PLATELET COMMENT DECREASED; ROULEAUX 1+; TOXIC GRANULATION SLIGHT
[2018-05-11 08:07] LABS: HYPOCHROMASIA SLIGHT; POLYCHROMASIA SLIGHT
[2018-05-11] MEDS ORDERED: DIPHENOXYLATE HCL/ATROP SULF 2.5-0.025 MG TABLET PO PRN (08:54)
[2018-05-11] MEDS ORDERED: POTASSI CL 20 MEQ/50 ML RIDER 20 MEQ/50 ML RTUPB IV ONE (08:54)
--- NOTE | 2018-05-11 09:02 | PDOC PROGRESS REPORT ---
Subjective Progress Note for:: 05/11/18 Subjective:: Had long discussion with patient and family today, he does not feel ready to go home, still has continuous nausea and vomiting as well as diarrhea over the last 24 hours. I added IV Ativan to the mix as well as oral Lomotil. I will have my hospice agency, [facility], Jessica is the account liaison hospice, see patient today. Ultimately I would like to get him on home hospice. Reason For Visit: INTRACTABLE NAUSEA/VOMITING,DEHYDRATION, Physical Exam Vital Signs: Temp Pulse Resp BP Pulse Ox 97.8 F 95 17 154/69 H 94 05/10/18 20:23 05/10/18 20:23 05/10/18 20:23 05/10/18 20:23 05/10/18 20:23 Intake & Output 05/10/18 05/11/18 05/12/18 06:59 06:59 06:59 Intake Total 3286 118 1000 Balance 3286 118 1000 Weight 83.7 kg 86.2 kg General appearance: PRESENT: no acute distress, well-developed, well-nourished Head exam: PRESENT: atraumatic, normocephalic Eye exam: PRESENT: conjunctiva pink, EOMI, PERRLA. ABSENT: scleral icterus Ear exam: PRESENT: normal external ear exam Mouth exam: PRESENT: moist, tongue midline Neck exam: ABSENT: carotid bruit, JVD, lymphadenopathy, thyromegaly Respiratory exam: PRESENT: clear to auscultation marlena. ABSENT: rales, rhonchi, wheezes Cardiovascular exam: PRESENT: RRR. ABSENT: diastolic murmur, rubs, systolic murmur Pulses: PRESENT: normal dorsalis pedis pul Vascular exam: PRESENT: normal capillary refill GI/Abdominal exam: PRESENT: normal bowel sounds, soft. ABSENT: distended, guarding, mass, organolmegaly, rebound, tenderness Rectal exam: PRESENT: deferred Extremities exam: PRESENT: full ROM. ABSENT: calf tenderness, clubbing, pedal edema Neurological exam: PRESENT: alert, awake, oriented to person, oriented to place , oriented to time, oriented to situation, CN II-XII grossly intact. ABSENT: motor sensory deficit Psychiatric exam: PRESENT: appropriate affect, normal mood. ABSENT: homicidal ideation, suicidal ideation Skin exam: PRESENT: dry, intact, warm. ABSENT: cyanosis, rash Results Laboratory Results: 05/11/18 06:25 05/10/18 17:50 05/10/18 05/11/18 17:50 06:25 WBC 1.6 L RBC 2.34 L Hgb 7.1 L Hct 21.3 L MCV 91 MCH 30.5 MCHC 33.6 RDW 17.1 H Plt Count 143 L Seg Neutrophils % 71.7 Lymphocytes % 17.2 Monocytes % 8.6 Eosinophils % 2.2 Basophils % 0.3 Absolute Neutrophils 1.1 L Absolute Lymphocytes 0.3 L Absolute Monocytes 0.1 Absolute Eosinophils 0.0 Absolute Basophils 0.0 Sodium 137.4 Potassium 3.5 L Chloride 106 Carbon Dioxide 23 Anion Gap 8 BUN 13 Creatinine 0.63 Est GFR ( Amer) > 60 Est GFR (Non-Af Amer) > 60 Glucose 98 Calcium 8.3 L Assessment & Plan - Diagnosis (1) Nausea, vomiting and diarrhea Is this a current diagnosis for this admission?: Yes Plan: Still fairly intractable, above plan. (2) Pancreatic cancer Qualifiers: Pancreatic malignancy location: head of pancreas Qualified Code(s): C25.0 - Malignant neoplasm of head of pancreas Is this a current diagnosis for this admission?: Yes Plan: Further treatment plan, trying to get patient towards home hospice. (3) Cystitis Is this a current diagnosis for this admission?: Yes Plan: Cont antibiotics (4) Anemia Qualifiers: Anemia type: bone marrow failure Bone marrow failure anemia type: pancytopenia, antineoplastic chemotherapy-induced Qualified Code(s): D61.810 - Antineoplastic chemotherapy induced pancytopenia; T45.1X5A - Adverse effect of antineoplastic and immunosuppressive drugs, initial encounter; T45.1X5A - Adverse effect of antineoplastic and immunosuppressive drugs, initial encounter Is this a current diagnosis for this admission?: Yes Plan: No transfusion planned today (5) Pain, neoplasm-related Is this a current diagnosis for this admission?: Yes Plan: Continue current regimen - Time Time Spent with patient: 35 or more minutes - Inpatient Certification Based on my medical assessment, after consideration of the patient's comorbidities, presenting symptoms, or acuity I expect that the services needed warrant INPATIENT care.: Yes I certify that my determination is in accordance with my understanding of Medicare's requirements for reasonable and necessary INPATIENT services [42 CFR 412.3e].: Yes Medical Necessity: Need For IV Fluids, Risk of Complication if Not Cared For in Hospital
[2018-05-11] MEDS ORDERED: CEPHALEXIN 250 MG CAPSULE PO SCH (10:00)
[2018-05-11] MEDS: LORAZEPAM INJ 2 MG/1 ML VIAL IV PRN ×2 (10:05→18:16)
[2018-05-11] MEDS: ONDANSETRON HCL INJ/PF 4 MG/2 ML SDV IV PRN ×2 (10:05→18:19)
[2018-05-11] MEDS: CEPHALEXIN 500 MG CAPSULE PO SCH (10:10)
[2018-05-11] MEDS: MEGESTROL ACETATE 20 MG TABLET PO SCH ×2 (10:11→17:20)
[2018-05-11] MEDS: OXYCODONE HCL SR 10 MG TABLET PO SCH ×2 (10:11→16:48)
[2018-05-11] MEDS: HYDROMORPHONE HCL INJ/PF 2 MG/ML AMPULE IV PRN (11:49)
--- NOTE | 2018-05-11 13:39 | PDOC PROGRESS REPORT ---
Subjective Progress Note for:: 05/11/18 Subjective:: PRAMOD GILL JR is a 82 year old male with a past medical history of stage 4 pancreatic cancer (recently increased in size), colon cancer with prior resection and chemotherapy in 1998, hypothyroidism, and peptic ulcer disease who presented with nausea, vomiting and diarrhea after being recently started on Irinotecan. He was admitted for intractable nausea/vomiting, persistent diarrhea and dehydration. 05/09/2018. Patient is comfortably sitting in his bed and enjoying his breakfast. He does not seem to be in any acute distress. Says he is feeling much better and able to tolerate his p.o. intake. He diarrhea has also been better controlled. Overnight he was able to sleep. He has decided to continue with current CODE STATUS and will decide on transition to [facility] after discharge. He denies any fever, chest pain, shortness of breath, constipation, urinary symptoms. 05/10/2018. No acute events overnight. On my encounter patient is brushing his teeth. He seems very anxious and sad but does not seem to be in any acute distress. He had a long discussion with his oncologist today and plan is to discharge to hospice tomorrow. Patient has a very low appetite and also has not been able to tolerate his p.o. intake due to excessive nausea. Diarrhea has resolved and he has not use any antidiarrheals for the last 24 hours. Patient denies any fever, chills, shortness of breath, chest pain or any urinary symptoms. 05/11/2018. No acute events overnight. Encounter patient is resting in his bed does not seem to be in any acute distress however seems anxious and is complaining of continuous dry heaves and not being able to tolerate any p.o. intake except for ice chips. Patient is still pending his decision to be transferred to home hospice. He was started on Ativan but refusing to take it stating that he wants his physical problems to be addressed first before trying to treat his mind. Started on Megace yesterday and he states has not helped him with his appetite. He denies any fever, chills, chest pain, shortness of breath or any urinary symptoms. Reason For Visit: INTRACTABLE NAUSEA/VOMITING,DEHYDRATION, Physical Exam Vital Signs: Temp Pulse Resp BP Pulse Ox 98.1 F 82 18 158/74 H 97 05/11/18 11:17 05/11/18 11:17 05/11/18 11:17 05/11/18 11:17 05/11/18 11:17 Intake & Output 05/10/18 05/11/18 05/12/18 06:59 06:59 06:59 Intake Total 3286 118 1405 Balance 3286 118 1405 Weight 83.7 kg 86.2 kg General appearance: PRESENT: no acute distress, well-developed, well-nourished Head exam: PRESENT: atraumatic, normocephalic Eye exam: PRESENT: conjunctiva pink, EOMI, PERRLA. ABSENT: scleral icterus Ear exam: PRESENT: normal external ear exam Mouth exam: PRESENT: moist, tongue midline Neck exam: ABSENT: carotid bruit, JVD, lymphadenopathy, thyromegaly Respiratory exam: PRESENT: clear to auscultation marlena. ABSENT: rales, rhonchi, wheezes Cardiovascular exam: PRESENT: RRR. ABSENT: diastolic murmur, rubs, systolic murmur Pulses: PRESENT: normal dorsalis pedis pul Vascular exam: PRESENT: normal capillary refill GI/Abdominal exam: PRESENT: normal bowel sounds, soft, tenderness. ABSENT: distended, guarding, mass, organolmegaly, rebound Rectal exam: PRESENT: deferred Extremities exam: PRESENT: full ROM. ABSENT: calf tenderness, clubbing, pedal edema Neurological exam: PRESENT: alert, awake, oriented to person, oriented to place , oriented to time, oriented to situation, CN II-XII grossly intact. ABSENT: motor sensory deficit Psychiatric exam: PRESENT: anxious, appropriate affect, normal mood. ABSENT: homicidal ideation, suicidal ideation Skin exam: PRESENT: dry, intact, warm. ABSENT: cyanosis, rash Results Laboratory Results: 05/11/18 06:25 05/10/18 17:50 05/10/18 05/11/18 17:50 06:25 WBC 1.6 L RBC 2.34 L Hgb 7.1 L Hct 21.3 L MCV 91 MCH 30.5 MCHC 33.6 RDW 17.1 H Plt Count 143 L Seg Neutrophils % 71.7 Lymphocytes % 17.2 Monocytes % 8.6 Eosinophils % 2.2 Basophils % 0.3 Absolute Neutrophils 1.1 L Absolute Lymphocytes 0.3 L Absolute Monocytes 0.1 Absolute Eosinophils 0.0 Absolute Basophils 0.0 Sodium 137.4 Potassium 3.5 L Chloride 106 Carbon Dioxide 23 Anion Gap 8 BUN 13 Creatinine 0.63 Est GFR ( Amer) > 60 Est GFR (Non-Af Amer) > 60 Glucose 98 Calcium 8.3 L Assessment & Plan - Diagnosis (1) Nausea, vomiting and diarrhea Is this a current diagnosis for this admission?: Yes Plan: Not improving. Possibly due to recent chemotherapy or recent iliac nerve block procedure. C. difficile toxin negative, white blood cells within normal limits. Continue aggressive volume resuscitation guided by his volume status. Continue loperamide scheduled and Lomotil as needed. Continue Zofran and Ativan as needed. Added to steroids which may help chemo-induced nausea vomiting. Monitor electrolytes and replace as needed. Advance diet as tolerated. (2) History of pancreatic cancer Is this a current diagnosis for this admission?: Yes Plan: Stage IV, recently initiated third line of chemotherapy. As per oncology note chemotherapy is on hold as does not want to get any further chemotherapy. Patient has a long discussion with his oncologist. Plan is to keep patient for another 24 hours and discharged to hospice tomorrow. Patient is agreeable with the plan. (3) Dehydration Is this a current diagnosis for this admission?: Yes Plan: Due to problem #1. Continue IV fluids guided by volume status. (4) Urinary tract infection Qualifiers: Urinary tract infection type: site unspecified Hematuria presence: without hematuria Qualified Code(s): N39.0 - Urinary tract infection, site not specified Is this a current diagnosis for this admission?: Yes Plan: Uncomplicated. Likely acute cystitis caused by gram-negative rods such as E. coli. Cultures negative so far. Received 2 days of IV ceftriaxone. Start Keflex 500 p.o. twice daily for another 3 days. Follow-up cultures and switch to oral antibiotics once sensitivity available. (5) Anemia Qualifiers: Anemia type: bone marrow failure Bone marrow failure anemia type: pancytopenia, antineoplastic chemotherapy-induced Qualified Code(s): D61.810 - Antineoplastic chemotherapy induced pancytopenia; T45.1X5A - Adverse effect of antineoplastic and immunosuppressive drugs, initial encounter; T45.1X5A - Adverse effect of antineoplastic and immunosuppressive drugs, initial encounter Is this a current diagnosis for this admission?: Yes Plan: Normocytic. Multifactorial. Stable. Likely due to combination of chemotherapy, underlying malignancy and dietary deficiency. Denies any external source of bleeding. Monitor H&H. Transfuse if hemoglobin under 7, actively bleeding, or symptomatic. (6) Pain, neoplasm-related Is this a current diagnosis for this admission?: Yes Plan: Pain related due to underlying malignancy. Patient is status post celiac block times 1 week which unfortunately have not been effective. Continue IV analgesics and p.o. as needed. Outpatient pain management follow- up. (7) Opioid dependence Is this a current diagnosis for this admission?: Yes Plan: As problem #6. (8) Anorexia Is this a current diagnosis for this admission?: Yes Plan: Due to underlying malignancy and side effects of chemotherapy. Started on Megace.
[2018-05-11] MEDS ORDERED: METHYLPREDNISOLONE INJ 40 MG/1 ML SDV IV ONE (14:00)
[2018-05-12] MEDS: LEVOTHYROXINE SODIUM 0.088 MG TABLET PO SCH (05:36)
[2018-05-12] MEDS: NORMAL SALINE 1000 ML 1,000 ML IV PRN (05:37)
[2018-05-12] MEDS: LOPERAMIDE HCL 2 MG CAPSULE PO SCH ×2 (05:37→12:14)
[2018-05-12 06:25] LABS: HEMATOCRIT 22.3 % (37.9-51.0); MEAN CORPUSCULAR HEMOGLOBIN 30.8 pg (27.0-33.4); MEAN CORPUSCULAR VOLUME 91 fl (80-97); PLATELET COUNT 173 10^3/uL (150-450); RED BLOOD COUNT 2.46 10^6/uL (4.35-5.55); RED CELL DISTRIBUTION WIDTH 17.2 % (11.5-14.0); WHITE BLOOD COUNT 1.9 10^3/uL (4.0-10.5)
[2018-05-12 06:47] LABS: ABSOLUTE LYMPHOCYTES# (MANUAL) 0.3 10^3/uL (0.5-4.7); ABSOLUTE MONOCYTES # (MANUAL) 0.2 10^3/uL (0.1-1.4); ABSOLUTE NEUTROPHILS# (MANUAL) 1.4 10^3/uL (1.7-8.2); ALANINE AMINOTRANSFERASE 36 U/L (21-72); ALBUMIN 2.6 g/dL (3.5-5.0); ALKALINE PHOSPHATASE 106 U/L (38-126); ANION GAP 10 (5-19); ASPARTATE AMINO TRANSFERASE 34 U/L (17-59); BASOPHILS % (MANUAL) 0 % (0-2); BILIRUBIN,DIRECT 0.3 mg/dL (0.0-0.4); BILIRUBIN,TOTAL 1.1 mg/dL (0.2-1.3); BLOOD UREA NITROGEN 13 mg/dL (7-20); CALCIUM 8.4 mg/dL (8.4-10.2); CARBON DIOXIDE 22 mmol/L (22-30); CHLORIDE 108 mmol/L (98-107); EOSINOPHILS % (MANUAL) 2 % (0-6); GLUCOSE 99 mg/dL (75-110); LYMPHOCYTES % (MANUAL) 16 % (13-45); MONOCYTES % (MANUAL) 10 % (3-13); POTASSIUM 3.8 mmol/L (3.6-5.0); SEGMENTED NEUTROPHILS % (MAN) 72 % (42-78); SODIUM 139.6 mmol/L (137-145); TOTAL CELLS COUNTED 50; TOTAL PROTEIN 5.2 g/dL (6.3-8.2)
[2018-05-12 06:48] LABS: ANISOCYTOSIS 1+; PLATELET COMMENT ADEQUATE
[2018-05-12 06:55] LABS: HEMOGLOBIN 7.6 g/dL (13.5-17.0)
--- NOTE | 2018-05-12 08:45 | PDOC PROGRESS REPORT ---
Subjective Progress Note for:: 05/12/18 Subjective:: Talked w/ family today, agree to home hospice, d/w hospice agency, they are getting all equipment into house and once all delivered ok for d/c Reason For Visit: INTRACTABLE NAUSEA/VOMITING,DEHYDRATION, Physical Exam Vital Signs: Temp Pulse Resp BP Pulse Ox 98.2 F 89 16 140/67 H 93 05/12/18 07:42 05/12/18 07:42 05/12/18 07:42 05/12/18 07:42 05/12/18 07:42 Intake & Output 05/11/18 05/12/18 05/13/18 06:59 06:59 06:59 Intake Total 118 3687 Balance 118 3687 Weight 86.2 kg 88.8 kg General appearance: PRESENT: no acute distress, well-developed, well-nourished Head exam: PRESENT: atraumatic, normocephalic Eye exam: PRESENT: conjunctiva pink, EOMI, PERRLA. ABSENT: scleral icterus Ear exam: PRESENT: normal external ear exam Mouth exam: PRESENT: moist, tongue midline Neck exam: ABSENT: carotid bruit, JVD, lymphadenopathy, thyromegaly Respiratory exam: PRESENT: clear to auscultation marlena. ABSENT: rales, rhonchi, wheezes Cardiovascular exam: PRESENT: RRR. ABSENT: diastolic murmur, rubs, systolic murmur Pulses: PRESENT: normal dorsalis pedis pul Vascular exam: PRESENT: normal capillary refill GI/Abdominal exam: PRESENT: normal bowel sounds, soft. ABSENT: distended, guarding, mass, organolmegaly, rebound, tenderness Rectal exam: PRESENT: deferred Extremities exam: PRESENT: full ROM. ABSENT: calf tenderness, clubbing, pedal edema Neurological exam: PRESENT: alert, awake, oriented to person, oriented to place , oriented to time, oriented to situation, CN II-XII grossly intact. ABSENT: motor sensory deficit Psychiatric exam: PRESENT: appropriate affect, normal mood. ABSENT: homicidal ideation, suicidal ideation Skin exam: PRESENT: dry, intact, warm. ABSENT: cyanosis, rash Results Laboratory Results: 05/12/18 05:55 05/12/18 05:55 05/12/18 05/12/18 05:55 05:55 WBC 1.9 L RBC 2.46 L Hgb 7.6 L Hct 22.3 L MCV 91 MCH 30.8 MCHC 34.0 RDW 17.2 H Plt Count 173 Seg Neutrophils % Not Reportable Lymphocytes % Not Reportable Monocytes % Not Reportable Eosinophils % Not Reportable Basophils % Not Reportable Absolute Neutrophils Not Reportable Absolute Lymphocytes Not Reportable Absolute Monocytes Not Reportable Absolute Eosinophils Not Reportable Absolute Basophils Not Reportable Sodium 139.6 Potassium 3.8 Chloride 108 H Carbon Dioxide 22 Anion Gap 10 BUN 13 Creatinine 0.63 Est GFR ( Amer) > 60 Est GFR (Non-Af Amer) > 60 Glucose 99 Calcium 8.4 Magnesium 1.8 Total Bilirubin 1.1 AST 34 ALT 36 Alkaline Phosphatase 106 Total Protein 5.2 L Albumin 2.6 L Assessment & Plan - Diagnosis (1) Nausea, vomiting and diarrhea Is this a current diagnosis for this admission?: Yes Plan: Cont current regimen (2) Pancreatic cancer Qualifiers: Pancreatic malignancy location: head of pancreas Qualified Code(s): C25.0 - Malignant neoplasm of head of pancreas Is this a current diagnosis for this admission?: Yes Plan: no further rx (3) Cystitis Is this a current diagnosis for this admission?: Yes Plan: atbx cont, may not need any more on d/c? (4) Anemia Qualifiers: Anemia type: bone marrow failure Bone marrow failure anemia type: pancytopenia, antineoplastic chemotherapy-induced Qualified Code(s): D61.810 - Antineoplastic chemotherapy induced pancytopenia; T45.1X5A - Adverse effect of antineoplastic and immunosuppressive drugs, initial encounter; T45.1X5A - Adverse effect of antineoplastic and immunosuppressive drugs, initial encounter Is this a current diagnosis for this admission?: Yes Plan: no plan for transfusion (5) Pain, neoplasm-related Is this a current diagnosis for this admission?: Yes Plan: cont regimen - Time Time Spent with patient: 35 or more minutes
[2018-05-12] MEDS: ONDANSETRON HCL INJ/PF 4 MG/2 ML SDV IV PRN (09:02)
[2018-05-12] MEDS: LORAZEPAM INJ 2 MG/1 ML VIAL IV PRN (09:02)
[2018-05-12] MEDS: OXYCODONE HCL SR 10 MG TABLET PO SCH (09:03)
[2018-05-12] MEDS: MEGESTROL ACETATE 20 MG TABLET PO SCH (09:03)
[2018-05-12] MEDS: CEPHALEXIN 500 MG CAPSULE PO SCH (09:04)
[2018-05-12] MEDS: HEPARIN SOD (PORCINE) 5,000 UNIT/ML 1 ML SYRINGE SUBCUT SCH (09:43)
[2018-05-12 12:32] VITALS: BP 109/44
[2018-05-15 11:16] LABS: PATH REVIEW PATHOLOGIST REVIEWED
== END 2018-05-12 14:10 | disposition hospice, home (50) | DRG 809 ==
LOC: ER 09:43 → EH 15:39 → OBSVTOIN 15:39 → INTOOBSV 15:39 → 4N 17:11 → OBSVTOIN 05-08 13:03
PROVIDERS: ADMIT Internal Medicine; ATTEND Internal Medicine
DX: D61.810 Antineoplastic chemotherapy induced pancytopenia (principal); N39.0 Urinary tract infection, site not specified; C25.0 Malignant neoplasm of head of pancreas; F11.20 Opioid dependence, uncomplicated; T45.1X5A Adverse effect of antineoplastic and immunosuppressive drugs, initial encounter; R11.2 Nausea with vomiting, unspecified; E86.0 Dehydration; G89.3 Neoplasm related pain (acute) (chronic); R19.7 Diarrhea, unspecified; Y92.098 Other place in other non-institutional residence as the place of occurrence of the external cause; Z87.891 Personal history of nicotine dependence; Z85.038 Personal history of other malignant neoplasm of large intestine
CPT/HCPCS: 36415; 36591; 80048; 80053; 81001; 83605; 83690; 83735; 84100; 85025; 87040; 87086; 87493; 89055; 93005; 93010; 96361; 96365; 96375; 99285; G0378; J0696; J1170; J1644; J2060; J2405; J2765; J2920; J3480; J3490; J7030